=== PATIENT | male | born 1960 | race Caucasian/White ===

== ENCOUNTER 2017-11-02 20:31 | Emergency (ER) | payer SELFPAY ==
[2016-03-16 16:05] VITALS: Wt 48.1 kg
[~2017-11-02 20:31] MED LIST: CEP500 PO; CEPH-13 PO; FLUO-202 PO; FLUO40CA76 PO; LOR5/325 PO; LOR7.5/325 PO; MULT-1379 PO; PER PO; TRAZ-163 PO
--- NOTE | 2017-11-02 20:33 | ER Report ---
History and Physical Time Seen By MD: 20:32 HPI/ROS CHIEF COMPLAINT: Alcohol intoxication here to be admitted for detox HISTORY OF PRESENT ILLNESS: This is a 57 year old male. He is a daily drinker. Trying to stop. Having shakiness. Talked to Dr. Reese earlier today and said he was going to come in for detox. No other complaints at this time. He has been drinking today, last drink about 8pm. Says he likely needs 3 days in the hospital. REVIEW OF SYSTEMS: Respiratory: No cough, no dyspnea. Cardiovascular: No chest pain, no palpitations. Gastrointestinal: No vomiting, no abdominal pain. Musculoskeletal: No back pain. Allergies: Coded Allergies: naproxen (Verified Allergy, Intermediate, HVES, 11/02/17) Home Meds Reported Medications Fluoxetine Hcl (PROZAC) 20 Mg Capsule, 20 MG PO QDAY, CAPSULE 03/19/16 Trazodone Hcl (TRAZODONE HCL) 100 Mg Tablet, 150 PO QHS for PRN, TAB 03/15/16 Discontinued Reported Medications Multivits, W-Fe,Other Min (THERA-M) 1 Each Tablet, 1 EACH PO QDAY 03/19/16 Reviewed Nurses Notes: Yes Hx Smoking: Yes Smoking Status: Current: Every Day Smoker Exposure to Second Hand Smoke?: Yes Hx Alcohol Use: Yes Constitutional Vital Sign - Last 24 Hours 11/02/17 11/02/17 11/02/17 20:36 20:46 21:56 Temp 97.9 Pulse 91 91 Resp 14 14 B/P (MAP) 117/87 116/78 (91) Pulse Ox 85 85 O2 Delivery Room Air Room Air O2 Flow Rate 2.0 Physical Exam General Appearance: Intoxicated. Alert, no acute distress. Eyes: Pupils equal, round and reactive. Has slight scleral injection. ENT: Normal oral mucosa. Moist mucous membranes. Tympanic membranes are normal. Neck: Neck is supple and non tender. Respiratory: Chest is non tender, lungs are clear to auscultation. Cardiac: regular rate and rhythm Gastrointestinal: Abdomen is soft and non tender, no masses, bowel sounds normal. Musculoskeletal: Extremities have full range of motion. Skin: No rashes or lesions. DIFFERENTIAL DIAGNOSIS: After history and physical exam differential diagnosis was considered for alcohol intoxication requesting detox Medical Decision Making Data Points Result Diagram: 11/02/17204911/02/172049 Laboratory Hematology Test 11/02/17 20:50 11/02/17 21:26 Red Blood Count 5.31 M/uL (4.00-5.60) Mean Corpuscular Volume 98.1 fL (80.0-96.0) Mean Corpuscular Hemoglobin 34.5 pg (26.0-33.0) Mean Corpuscular Hemoglobin Concent 35.2 g/dL (32.0-36.0) Red Cell Distribution Width 13.4 % (11.5-14.5) Mean Platelet Volume 8.1 fL (7.2-11.1) Neutrophils (%) (Auto) 56.3 % (39.4-72.5) Lymphocytes (%) (Auto) 31.9 % (17.6-49.6) Monocytes (%) (Auto) 10.0 % (4.1-12.4) Eosinophils (%) (Auto) 1.1 % (0.4-6.7) Basophils (%) (Auto) 0.7 % (0.3-1.4) Nucleated RBC Relative Count (auto) 0.1 /100WBC Neutrophils # (Auto) 5.3 K/uL (2.0-7.4) Lymphocytes # (Auto) 3.0 K/uL (1.3-3.6) Monocytes # (Auto) 0.9 K/uL (0.3-1.0) Eosinophils # (Auto) 0.1 K/uL (0.0-0.5) Basophils # (Auto) 0.1 K/uL (0.0-0.1) Nucleated RBC Absolute Count (auto) 0.01 K/uL Sodium Level 142 mmol/L (137-145) Potassium Level 3.4 mmol/L (3.5-5.0) Chloride Level 101 mmol/L (98-107) Carbon Dioxide Level 23 mmol/L (22-30) Blood Urea Nitrogen 11 mg/dl (9-21) Creatinine 0.80 mg/dl (0.66-1.25) Glomerular Filtration Rate Calc > 60.0 Random Glucose 123 mg/dl (75-110) Calcium Level 9.4 mg/dl (8.4-10.2) Magnesium Level 2.0 mg/dl (1.7-2.2) Total Bilirubin 0.4 mg/dl (0.2-1.3) Aspartate Amino Transf (AST/SGOT) 132 U/L (0-35) Alanine Aminotransferase (ALT/SGPT) 93 U/L (0-56) Alkaline Phosphatase 75 U/L (0-126) Total Protein 7.3 gm/dl (6.3-8.2) Albumin 3.9 g/dl (3.5-5.0) Salicylates Level < 10 mg/L Salicylate Last Dose Date unk Acetaminophen Level < 10 ug/ml Serum Alcohol 377 mg/dl Urine Color Straw Urine Clarity Clear Urine pH 6.0 pH (4.8-9.5) Urine Specific [place] 1.003 Urine Protein Negative mg/dL (NEGATIVE) Urine Glucose (UA) Negative mg/dL (NEGATIVE) Urine Ketones Negative mg/dL (NEGATIVE) Urine Blood Negative (NEGATIVE) Urine Nitrite Negative (NEGATIVE) Urine Bilirubin Negative (NEGATIVE) Urine Urobilinogen Negative mg/dL (0.2-1.9) Urine Leukocyte Esterase Negative (NEGATIVE) Urine RBC None /HPF (0-2/HPF) Urine WBC None /HPF (0-5/HPF) Urine Squamous Epithelial Cells None /LPF (</=FEW) Urine Bacteria Negative /HPF (NONE-FEW) Urine Mucus None /HPF (NONE-FEW) Urine Opiates Screen Negative Urine Barbiturates Screen Negative Ur Tricyclic Antidepressants Screen Negative Urine Phencyclidine Screen Negative Urine Amphetamines Screen Negative Urine Benzodiazepines Screen Negative Urine Cocaine Screen Negative Urine Cannabinoids Screen Positive Chemistry Test 11/02/17 20:50 11/02/17 21:26 White Blood Count 9.3 k/uL (4.5-11.0) Red Blood Count 5.31 M/uL (4.00-5.60) Hemoglobin 18.3 g/dL (14.0-18.0) Hematocrit 52.1 % (42.0-52.0) Mean Corpuscular Volume 98.1 fL (80.0-96.0) Mean Corpuscular Hemoglobin 34.5 pg (26.0-33.0) Mean Corpuscular Hemoglobin Concent 35.2 g/dL (32.0-36.0) Red Cell Distribution Width 13.4 % (11.5-14.5) Platelet Count 175 K/uL (150-450) Mean Platelet Volume 8.1 fL (7.2-11.1) Neutrophils (%) (Auto) 56.3 % (39.4-72.5) Lymphocytes (%) (Auto) 31.9 % (17.6-49.6) Monocytes (%) (Auto) 10.0 % (4.1-12.4) Eosinophils (%) (Auto) 1.1 % (0.4-6.7) Basophils (%) (Auto) 0.7 % (0.3-1.4) Nucleated RBC Relative Count (auto) 0.1 /100WBC Neutrophils # (Auto) 5.3 K/uL (2.0-7.4) Lymphocytes # (Auto) 3.0 K/uL (1.3-3.6) Monocytes # (Auto) 0.9 K/uL (0.3-1.0) Eosinophils # (Auto) 0.1 K/uL (0.0-0.5) Basophils # (Auto) 0.1 K/uL (0.0-0.1) Nucleated RBC Absolute Count (auto) 0.01 K/uL Glomerular Filtration Rate Calc > 60.0 Calcium Level 9.4 mg/dl (8.4-10.2) Magnesium Level 2.0 mg/dl (1.7-2.2) Total Bilirubin 0.4 mg/dl (0.2-1.3) Aspartate Amino Transf (AST/SGOT) 132 U/L (0-35) Alanine Aminotransferase (ALT/SGPT) 93 U/L (0-56) Alkaline Phosphatase 75 U/L (0-126) Total Protein 7.3 gm/dl (6.3-8.2) Albumin 3.9 g/dl (3.5-5.0) Salicylates Level < 10 mg/L Salicylate Last Dose Date unk Acetaminophen Level < 10 ug/ml Serum Alcohol 377 mg/dl Urine Color Straw Urine Clarity Clear Urine pH 6.0 pH (4.8-9.5) Urine Specific [place] 1.003 Urine Protein Negative mg/dL (NEGATIVE) Urine Glucose (UA) Negative mg/dL (NEGATIVE) Urine Ketones Negative mg/dL (NEGATIVE) Urine Blood Negative (NEGATIVE) Urine Nitrite Negative (NEGATIVE) Urine Bilirubin Negative (NEGATIVE) Urine Urobilinogen Negative mg/dL (0.2-1.9) Urine Leukocyte Esterase Negative (NEGATIVE) Urine RBC None /HPF (0-2/HPF) Urine WBC None /HPF (0-5/HPF) Urine Squamous Epithelial Cells None /LPF (</=FEW) Urine Bacteria Negative /HPF (NONE-FEW) Urine Mucus None /HPF (NONE-FEW) Urine Opiates Screen Negative Urine Barbiturates Screen Negative Ur Tricyclic Antidepressants Screen Negative Urine Phencyclidine Screen Negative Urine Amphetamines Screen Negative Urine Benzodiazepines Screen Negative Urine Cocaine Screen Negative Urine Cannabinoids Screen Positive Toxicology Test 11/02/17 20:50 11/02/17 21:26 Salicylates Level < 10 mg/L Salicylate Last Dose Date unk Acetaminophen Level < 10 ug/ml Serum Alcohol 377 mg/dl Urine Opiates Screen Negative Urine Barbiturates Screen Negative Ur Tricyclic Antidepressants Screen Negative Urine Phencyclidine Screen Negative Urine Amphetamines Screen Negative Urine Benzodiazepines Screen Negative Urine Cocaine Screen Negative Urine Cannabinoids Screen Positive Urinalysis Test 11/02/17 21:26 Urine Color Straw Urine Clarity Clear Urine pH 6.0 pH (4.8-9.5) Urine Specific [place] 1.003 Urine Protein Negative mg/dL (NEGATIVE) Urine Glucose (UA) Negative mg/dL (NEGATIVE) Urine Ketones Negative mg/dL (NEGATIVE) Urine Blood Negative (NEGATIVE) Urine Nitrite Negative (NEGATIVE) Urine Bilirubin Negative (NEGATIVE) Urine Urobilinogen Negative mg/dL (0.2-1.9) Urine Leukocyte Esterase Negative (NEGATIVE) Urine RBC None /HPF (0-2/HPF) Urine WBC None /HPF (0-5/HPF) Urine Squamous Epithelial Cells None /LPF (</=FEW) Urine Bacteria Negative /HPF (NONE-FEW) Urine Mucus None /HPF (NONE-FEW) ED Course/Re-evaluation ED Course Labs unremarkable. Discussed with Dr. Reese. Gave Valium 20 mg oral dose. Also given nicotine patch. Will be admitted to behavioral health. Decision to Disposition Date: November 02, 2017 Decision to Disposition Time: 21:42 Depart Departure Latest Vital Signs Vital Signs Date Time Temp Pulse Resp B/P (MAP) Pulse Ox O2 Delivery O2 Flow Rate FiO2 11/02/17 21:56 91 14 116/78 (91) 85 Room Air 11/02/17 20:46 2.0 11/02/17 20:36 97.9 Impression: Primary Impression: Alcohol intoxication in active alcoholic Condition: Condition Unchanged Disposition: XFER TO [facility] Referrals: MILO TONEY (PCP) Problem Qualifiers Primary Impression: Alcohol intoxication in active alcoholic Complication of substance-induced condition: uncomplicated Qualified Codes: F10.220 - Alcohol dependence with intoxication, uncomplicated AN NAVA MD November 02, 2017 20:33
[2017-11-02 20:56] LABS: PLATELET COUNT, AUTOMATED 175 K/uL (150-450)
[2017-11-02] MEDS ORDERED: DIAZEPAM 10 MG TAB PO ONE (21:20)
[2017-11-02] MEDS ORDERED: NICOTINE 21 MG/24 HR PATCH TD ONE (21:38)
[2017-11-02 21:56] VITALS: BP 116/78
== END 2017-11-02 21:58 ==
LOC: ER 20:57
DX: F10.220 Alcohol dependence with intoxication, uncomplicated (principal)
CPT/HCPCS: 36415; 80305; 80320; 80329; 81001; 82040; 82247; 82310; 82374; 82435; 82565; 82947; 83735; 84075; 84132; 84155; 84295; 84443; 84450; 84460; 84520; 85025; 99285

== ENCOUNTER 2017-11-02 21:51 | Inpatient (IN) | payer SELFPAY ==
[2016-03-16 16:05] VITALS: Ht 167.6 cm; Wt 48.1 kg
[~2017-11-02] VITALS: Ht 167.6 cm; Wt 48.1 kg
[2017-11-02] MEDS ORDERED: MAG HYD/AL HYD/SIMETH 30ML UDC PO PRN ×2 (22:10→22:15)
[2017-11-02] MEDS ORDERED: DIAZEPAM 10 MG TAB PO PRN (22:10)
[2017-11-02 22:33] VITALS: BP 108/72
[2017-11-02] MEDS ORDERED: NICOTINE INH SYSTEM 10 MG/INH INH PRN ×2 (23:40)
[2017-11-03 05:20] VITALS: BP 109/99
[2017-11-03] MEDS: DIAZEPAM 20 MG PER CIWA PROTOCOL PO PRN ×3 (05:26→21:15)
[2017-11-03 07:55] VITALS: BP 124/84
[2017-11-03] MEDS: THIAMINE HCL 100 MG TAB PO SCH (08:19)
[2017-11-03] MEDS: FOLIC ACID 1 MG TAB PO SCH (08:19)
[2017-11-03] MEDS: MULTIVITAMINS TAB PO SCH (08:19)
[2017-11-03] MEDS ORDERED: MULTIVITAMINS TAB PO SCH (09:00)
[2017-11-03 11:50] VITALS: BP 140/94
[2017-11-03] MEDS: FLUoxetine HCL 20 MG CAP PO SCH (13:07)
--- NOTE | 2017-11-03 14:40 | HISTORY AND PHYSICAL ---
DATE OF ADMISSION: November 02, 2017 Patient was seen for note concerning this dictation at approximately 0800 hours on November 03, 2017. PRESENTING PROBLEM/CHIEF COMPLAINT Alcohol withdrawal. HISTORY OF PRESENT ILLNESS This is a 57-year-old male who is fairly well known to this provider. Patient was notably last on the unit in March of 2016 under similar circumstances. Patient reports having a fairly long period of sobriety following that discharge , again in March in 2015. Patient unfortunately relapsing, having difficulty controlling morning shakes. Patient reports he has also gone through some relationship stressors which are long-standing in nature, and patient having limited finances, and again suffering multiple social effects from ongoing alcoholism. Patient reporting he is trying to cut down at home, but unable to detox successfully at home, currently drinking up to one pint a day of hard liquor. Patient also reporting recent loss of a friend who was drinking heavily as well who had . This is bothersome to him. Patient reports very poor sleep recently while drinking and having panic-like attack symptoms during the night likely related to alcohol withdrawal. Patient denying any other significant psychiatric concerns. MENTAL HEALTH HISTORY Patient has been a long-term outpatient patient for what appears to be persisting depressive disorder type symptomatology. Patient has long done well on a relatively high dose of Prozac with trazodone at night. Patient is believed to be taking Prozac currently, but no longer on trazodone at this time. Patient does not have a significant history of suicide attempt that is known. FAMILY PSYCHIATRIC HISTORY Unknown at this time. Will get further information. PAST MEDICAL HISTORY Patient of thin body habitus long-standing in nature, thought to be in overall good health. Not thought to be on any medical medications currently. SOCIAL HISTORY Patient was born in [place], raised there, currently living in [place]. Patient has adult children. 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 They are currently . Patient most recently living with his son. LEGAL HISTORY Thought to be unremarkable now. SUBSTANCE ABUSE HISTORY Patient reports drinking hard liquor, sometimes whiskey and tequila heavily. Patient known to use nicotine and patient's cannabis screen is positive. PHYSICAL EXAM GENERAL: Please see emergency room note. Notable for a cooperative, thin 57- year-old male, requesting help with alcohol withdrawal. Patient in no acute medical distress. VITAL SIGNS: At the time of admission, temperature 97.9, pulse 91, respiratory rate 14, blood pressure 117/87, pulse oximetry notably low at 85 on room air in the emergency room. LABORATORY DATA Significant for hemoglobin elevated at 18.3, hematocrit elevated at 52.1, MCV and MCH elevated at 98.1 and 34.5 respectively. Chemistry panel notable for a potassium low at 3.4, AST 132 and elevated, ALT 93 and elevated, TSH within normal range. Urinalysis unremarkable. Toxicology screen positive or cannabis with a serum alcohol level of 377. MENTAL STATUS EXAMINATION DURING TIME OF INITIAL INTERVIEW GENERAL APPEARANCE, BEHAVIOR AND ATTITUDE: Patient showing no psychomotor agitation. Patient currently effectively treated with diazepam for alcohol withdrawal. Patient making fair eye contact at times, was cooperative, quiet. No periods of tearfulness. No bizarre mannerisms or tics. SPEECH: Quiet. Poverty of speech noted. MOOD: Frustrated concerning effects of ongoing alcohol use and absence of significant other currently. AFFECT: Constricted. Mood congruent. THOUGHT PROCESSES: Appear goal directed. Patient asking to come to the emergency room for help and subsequent transfer to Behavioral Health for alcohol withdrawal. Logical. No loose associations or flight of ideas were noted. THOUGHT CONTENT: Free of auditory or visual hallucinations, ideas of reference , thought broadcastings, delusions, obsessions, compulsions. Patient denying suicidal or homicidal ideation. SENSORIUM: Clear. COGNITION: Alert and oriented to person, place, time and situation. MEMORY: Immediate, recent and remote estimated intact. INTELLIGENCE: Average based on historical data. INSIGHT AND JUDGMENT: Considered grossly intact in the absence of alcohol and cannabis use. ASSESSMENT This is a polite, cooperative 57-year-old male well known to this provider. Patient presenting to the emergency room on a voluntary basis asking for help with alcohol withdrawal. At this time we will look into outpatient meds that patient is currently on. We will continue those. We will also treat alcohol withdrawal with diazepam per [facility] protocol, and continue to evaluate any other psychiatric concerns. DIAGNOSES PER DSM-V Alcohol intoxication. Alcohol withdrawal. Alcohol use disorder severe. Persisting depressive disorder. Partner relational problem. Cannabis use disorder mild to moderate. Social stressors related to alcohol use disorder. PLAN 1. Admit to the unit. 2. Necessary precautions to be implemented. 3. Patient will participate in individual and group therapy. 4. Medications to be adjusted, titrated accordingly. 5. Collateral information to be obtained as necessary. 6. Estimated length of stay three to five days. MTDD
[2017-11-03] MEDS ORDERED: NICOTINE CARTRIDGE 1 EA PO ONE ×2 (16:43→16:45)
[2017-11-03 17:18] VITALS: BP 140/95
[2017-11-03] MEDS ORDERED: DIAZEPAM 10 MG TAB PO ONE (18:00)
[2017-11-03 21:24] VITALS: BP 146/90
[2017-11-04 05:17] VITALS: BP 140/90
[2017-11-04 06:40] VITALS: BP 148/92
[2017-11-04] MEDS: MULTIVITAMINS TAB PO SCH (08:46)
[2017-11-04] MEDS: FLUoxetine HCL 20 MG CAP PO SCH (08:46)
[2017-11-04] MEDS: THIAMINE HCL 100 MG TAB PO SCH (08:46)
[2017-11-04] MEDS: FOLIC ACID 1 MG TAB PO SCH (08:46)
--- NOTE | 2017-11-04 12:57 | [facility]HS Progress Note ---
[facility] - Subjective Progress Notes Subjective Patient continues in treatment for alcohol withdrawal, and very compliant with treatment on the unit, Son was available for treatment team meeting today, and noted to have reciprocal relationship. Appetite improving, patient does not want to attend residential rehab at this time. No other concerns. Suicidal Ideation: None Homicidal Ideation: None [facility] - Objective Physical Exam Vital Signs Vital Signs Date Time Temp Pulse Resp B/P (MAP) Pulse Ox O2 Delivery O2 Flow Rate FiO2 11/04/17 09:23 94 Room Air 11/04/17 06:40 99.3 88 16 148/92 (110) 11/04/17 05:17 2.0 Muscle Strength and Tone: WNL Gait and Station: Steady [facility] Medications Reviewed: Side Effects, Benefits of Medication, Risks Allergies Reviewed: Yes Mental Status Exam General Appearance: Casual, Good Eye Contact (improving), Cooperative, Polite, Good Interaction, Psychomotor Retardation, No Bizarre Mannerisms, No Tics Speech: Clear, Spontaneous, Normal Rate, Normal Volume Mood: Dysthmic/Depressed (frustrated) Affect: Calm, Neutral, No Tearful, No Anxious, No Agitated Thought Process: Organized, Logical, Goal Directed, No Loose Associations, No Flight of Ideas Thought Content: No Suicidal Ideation, No Homicidal Ideation, No Delusions, No Auditory Halllucinations, No Visual Hallucinations, No Thought Broadcasting, No Ideas of Reference, No Obsessions, No Compulsions Sensorium: Clear Cognition: Alert & Oriented-Person, Alert & Oriented-Place, Alert & Oriented- Time, Pxpzj-Hbcrfajf-Kfdejghuh Memory: Immediate, Recent, Remote Intelligence: Average Insight Judgment: Fair (improvement in the absence of alcohol) [facility] Assessment and Plan [id number] Encounter Date: November 04, 2017 [id number] Encounter Time: 09:40 [facility] Plan: Necessary Precautions, Individual/Group Therapy, Admin/Titrate Meds, Educate Patient Tobacco Medications: Started Multpiple Antipsychotics Used: No Problems: (1) Alcohol withdrawal Status: Acute (2) Alcohol use disorder, severe, in controlled environment Status: Chronic (3) Persistent depressive disorder Status: Chronic Condition 1. continue treatment, 2. consider re-starting trazadone. 3. labs in AM. Problem Qualifiers (1) Alcohol withdrawal: Complication of substance-induced condition: uncomplicated Qualified Codes: F10.230 - Alcohol dependence with withdrawal, uncomplicated IZABELA,ROSIE MD November 04, 2017 12:57
[2017-11-04 14:15] VITALS: BP 122/84
[2017-11-04] MEDS: DIAZEPAM 20 MG PER CIWA PROTOCOL PO PRN ×2 (14:32→21:10)
[2017-11-04 16:55] VITALS: BP 142/88
[2017-11-04] MEDS ORDERED: ACETAMINOPHEN 325 MG TAB PO PRN (17:10)
[2017-11-04 20:54] VITALS: BP 143/103
[2017-11-05 07:21] LABS: PLATELET COUNT, AUTOMATED 153 K/uL (150-450)
[2017-11-05] MEDS: FOLIC ACID 1 MG TAB PO SCH (08:32)
[2017-11-05] MEDS: THIAMINE HCL 100 MG TAB PO SCH (08:32)
[2017-11-05] MEDS: FLUoxetine HCL 20 MG CAP PO SCH (08:32)
[2017-11-05] MEDS: MULTIVITAMINS TAB PO SCH (08:32)
[2017-11-05 08:49] VITALS: BP 124/82
--- NOTE | 2017-11-05 09:54 | [facility] Progress Note ---
S - Subjective Progress Notes Subjective "The breakup with my of 32 years caused me to go downhill. I'm hoping by staying sober I can re-establish a relationship with my . I'm claustrophobic and need to smoke." Previous admit 2015, prolonged period of sobriety for 2 years until last 2 months, and triggered relapse Was drinking 1-2 pints daily prior to admit Living w/son, good support system AA in past, dislikes AA meetings, agrees with outpatient individual therapy Has appt. with Ashley Wei 11/09/17 for individual therapy Denies suicidal or homicidal ideation Denies urge to drink Suicidal Ideation: None Homicidal Ideation: None [facility] - Objective Physical Exam Vital Signs Laboratory Tests Test 11/05/17 06:54 White Blood Count 11.7 k/uL Red Blood Count 5.10 M/uL Hemoglobin 17.6 g/dL Hematocrit 49.7 % Mean Corpuscular Volume 97.4 fL Mean Corpuscular Hemoglobin 34.5 pg Mean Corpuscular Hemoglobin Concent 35.4 g/dL Red Cell Distribution Width 12.8 % Platelet Count 153 K/uL Mean Platelet Volume 9.1 fL Neutrophils (%) (Auto) 72.4 % Lymphocytes (%) (Auto) 16.0 % Monocytes (%) (Auto) 11.0 % Eosinophils (%) (Auto) 0.2 % Basophils (%) (Auto) 0.4 % Nucleated RBC Relative Count (auto) 0.0 /100WBC Neutrophils # (Auto) 8.5 K/uL Lymphocytes # (Auto) 1.9 K/uL Monocytes # (Auto) 1.3 K/uL Eosinophils # (Auto) 0.0 K/uL Basophils # (Auto) 0.0 K/uL Nucleated RBC Absolute Count (auto) 0.00 K/uL Sodium Level 134 mmol/L Potassium Level 3.6 mmol/L Chloride Level 98 mmol/L Carbon Dioxide Level 26 mmol/L Blood Urea Nitrogen 9 mg/dl Creatinine 0.70 mg/dl Glomerular Filtration Rate Calc > 60.0 Random Glucose 92 mg/dl Calcium Level 9.1 mg/dl Magnesium Level 1.8 mg/dl Total Bilirubin 1.6 mg/dl Aspartate Amino Transf (AST/SGOT) 35 U/L Alanine Aminotransferase (ALT/SGPT) 58 U/L Alkaline Phosphatase 78 U/L Total Protein 6.4 gm/dl Albumin 3.2 g/dl Current Medications Medications (Trade) Dose Ordered Sig/Vandana Route PRN Reason Start Time Stop Time Status Last Admin Dose Admin Multivitamins (Thera-M Enhanced Tab (Or Equiv)) 1 each QDAY PO 11/03/17 09:00 11/03/17 09:00 DC Al Hydrox/Mg Hydrox/Simethicone (Maalox(*) 30 ml Udcup (Or Equiv)) 30 ml Q6H PRN PO HEARTBURN 11/02/17 22:10 11/02/17 22:51 DC Diazepam (Valium(*) 10 Mg Tab (Or Equiv)) 20 mg Q1H PRN PO FOLLOW [facility] PROTOCOL 11/02/17 22:10 11/02/17 22:51 DC Al Hydrox/Mg Hydrox/Simethicone (Maalox(*) 30 ml Udcup (Or Equiv)) 30 ml Q6H PRN PO HEARTBURN 11/02/17 22:15 12/02/17 22:14 Multivitamins (Thera-M Enhanced Tab (Or Equiv)) 1 each QDAY PO 11/03/17 09:00 12/03/17 08:59 11/05/17 08:32 Diazepam (Valium(*) 10 Mg Tab (Or Equiv)) 20 mg Q1H PRN PO FOLLOW [facility] PROTOCOL 11/02/17 22:20 11/16/17 22:19 11/04/17 21:10 Thiamine HCl (Vitamin B-1(*) 100 Mg Tab (Or Equiv)) 100 mg QDAY PO 11/03/17 09:00 12/03/17 08:59 11/05/17 08:32 Folic Acid (Folic Acid (*) 1 Mg Tab) 1 mg QDAY PO 11/03/17 09:00 12/03/17 08:59 11/05/17 08:32 Nicotine (Nicotrol Inhaler 10 Mg/Inh (Or Equiv)) 10 mg PRN PRN INH NICOTINE REPLACEMENT 11/02/17 23:40 11/02/17 23:43 DC Nicotine (Nicotrol Inhaler 10 Mg/Inh (Or Equiv)) 10 mg PRN PRN INH NICOTINE REPLACEMENT 11/02/17 23:40 12/02/17 23:39 11/04/17 19:44 Fluoxetine HCl (PROzac 20 MG CAP (OR EQUIV)) 20 mg QDAY PO 11/03/17 12:50 12/03/17 12:49 11/05/17 08:32 Miscellaneous Information (Nicotrol Cartridge) 1 each STK-MED ONCE PO 11/03/17 16:43 11/03/17 16:52 DC 11/03/17 16:43 Miscellaneous Information (Nicotrol Cartridge) 1 each STK-MED ONCE PO 11/03/17 16:45 11/03/17 16:52 DC Diazepam (Valium(*) 10 Mg Tab (Or Equiv)) 10 mg ONCE ONCE PO 11/03/17 18:00 11/03/17 18:04 DC 11/03/17 18:01 Acetaminophen (Tylenol(*)325 Mg Tab (Or Equiv)) 325 mg Q6H PRN PO FEVER/PAIN 11/04/17 17:10 12/04/17 17:09 11/04/17 17:36 Vital Signs Date Time Temp Pulse Resp B/P (MAP) Pulse Ox O2 Delivery O2 Flow Rate FiO2 11/05/17 08:49 99.2 99 18 124/82 (96) 90 Room Air 11/04/17 05:17 2.0 Allergies Coded Allergies naproxen (Verified Allergy, Intermediate, HVES, 11/02/17) Muscle Strength and Tone: WNL Gait and Station: Steady [facility] Medications Reviewed: Side Effects, Benefits of Medication, Risks Allergies Reviewed: Yes Mental Status Exam General Appearance: Casual, Good Eye Contact (improving), Cooperative, Polite, Good Interaction, Psychomotor Retardation, No Bizarre Mannerisms, No Tics Speech: Clear, Spontaneous, Normal Rate, Normal Volume Mood: Dysthmic/Depressed (tearful as discusses loss of marriage, agrees w/ outpt therapy as scheduled) Affect: Calm, Neutral, No Tearful, No Anxious, No Agitated Thought Process: Organized, Logical, Goal Directed, No Loose Associations, No Flight of Ideas Thought Content: No Suicidal Ideation, No Homicidal Ideation, No Delusions, No Auditory Halllucinations, No Visual Hallucinations, No Thought Broadcasting, No Ideas of Reference, No Obsessions, No Compulsions Sensorium: Clear Cognition: Alert & Oriented-Person, Alert & Oriented-Place, Alert & Oriented- Time, Zealy-Agdcnaqc-Fglobtsus Memory: Immediate, Recent, Remote Intelligence: Average Insight Judgment: Fair (improvement in the absence of alcohol) Result Diagram: 11/05/17 0654 11/05/17 0654 Lab Vital Signs Date Time Temp Pulse Resp B/P (MAP) Pulse Ox O2 Delivery O2 Flow Rate FiO2 11/05/17 08:49 99.2 99 18 124/82 (96) 90 Room Air 11/04/17 05:17 2.0 Allergies Coded Allergies naproxen (Verified Allergy, Intermediate, HVES, 11/02/17) S Assessment and Plan [id number] Encounter Date: November 05, 2017 [id number] Encounter Time: 09:53 [facility] Plan: Necessary Precautions, Individual/Group Therapy, Admin/Titrate Meds, Educate Patient Tobacco Medications: Started Multpiple Antipsychotics Used: No Problems: (1) Alcohol use disorder, severe, in controlled environment Status: Chronic (2) Persistent depressive disorder Status: Chronic (3) Alcohol intoxication in active alcoholic Status: Resolved (4) Alcohol withdrawal Status: Resolved Condition Discharge to home Encourage to abstain from etoh/illicit substances Encourage outpt. appts. as scheduled Crisis line # provided, encourage use if needed Return to ER for worsening symptoms, SI/HI Allergies Coded Allergies naproxen (Verified Allergy, Intermediate, HVES, 11/02/17) Problem Qualifiers (1) Alcohol withdrawal: Complication of substance-induced condition: uncomplicated Qualified Codes: F10.230 - Alcohol dependence with withdrawal, uncomplicated NEDA WICK NP November 05, 2017 09:54
[2017-11-05] MEDS ORDERED: NIC10R INH (10:09)
[2017-11-05] MEDS ORDERED: FOLI-68 PO (10:29)
[2017-11-05] MEDS ORDERED: MULT-859 PO (10:30)
[2017-11-05] MEDS ORDERED: THIA100T2 PO (10:30)
--- NOTE | 2017-11-05 15:25 | DISCHARGE SUMMARY ---
DATE OF ADMISSION: November 02, 2017 DATE OF DISCHARGE: November 05, 2017 FINAL DIAGNOSES PER DIAGNOSTIC AND STATISTICAL MANUAL OF MENTAL DISORDERS, FIFTH EDITION 1. Alcohol use disorder, severe. 2. Alcohol withdrawal, considered complete. 3. Persisting depressive disorder. 4. Partner relational problems. 5. Cannabis use disorder, mild to moderate. 6. Tobacco use disorder, severe. 7. Problems related to interpersonal relationship with ex-, alcoholism. REASON FOR ADMISSION AND BRIEF HISTORY Patient is a 57-year-old male who reports upon initial interview that he has most recently relapsed with alcohol with stress of recent divorce. Patient was previously on the Behavioral Health Unit in March 2016 under similar circumstances. Patient had a prolonged period of sobriety up until recently when partner relationship stressors caused his relapse. Patient reports that he has been drinking a half pint to a pint of hard liquor daily. He also reported a recent loss of a friend who was drinking heavily as well. Patient reported poor sleep while drinking and panic-like symptoms during the night, likely related to alcohol withdrawal. At time of discharge interview, patient reports that his sleep has been restored with use of trazodone. He has been restarted on fluoxetine, previously taking 100 mg dose, and patient agreeable to continuing both at home. Patient reports ongoing depression related to the loss of the relationship with his of 32 years, although he does have support from his son whom he is currently living with. Patient reports that he hopes through sobriety that he can regain some respect and communication with his ex-, and he is looking forward to spending time with his son and 9-year-old grandson. Patient is tearful as he discusses the loss of the relationship and things that they used to enjoy, such as square dancing. 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 It was encouraged that patient stay remaining on the unit in order that we could continue support of his sobriety and his current related stressors with his ex-, although patient reports he is claustrophobic and also needing to smoke, and he is requesting to be discharged and agreeable with the above discharge plan which includes regular calls that the patient makes upon his return home to Behavioral Health Unit. He is agreeable with his outpatient scheduled appointment with an individual therapist that is preset prior to his discharge. He is also encouraged to attend AA meetings, although has done so in the past and declines this option. PHYSICAL EXAMINATION Please see emergency room notes for physical exam. VITAL SIGNS: At time of admit include temperature of 99.3, pulse of 88, respiratory rate 16, blood pressure 148/92, pulse oximetry 90% on room air. Vital signs at time of discharge include temperature of 99.2, pulse of 99, respiratory rate 18, blood pressure 124/82, pulse oximetry 90% on room air. LABORATORY DATA CBC with elevated white blood count, 11.7, MCV elevated, 97.4, MCH elevated, 34.5, lymphocyte percent low at 16, monocyte percent elevated, 1.3. Chemistry panel: Sodium slightly low at 134, total bilirubin elevated at 1.6, ALT elevated at 58, albumin low at 3.2. Initial urine screen including negative results within normal limits. Toxicology upon emergency room triage including salicylate, acetaminophen levels less than 10. Serum alcohol upon admit was 377. Urine screen negative for opiates, barbiturates, tricyclics, phencyclidine , amphetamines, benzodiazepines, cocaine. Positive for cannabinoids. Thyroid stimulating hormone was 1.36. MENTAL STATUS EXAMINATION GENERAL APPEARANCE, BEHAVIOR, AND ATTITUDE: This is a calm, cooperative, 57- year-old male. At time of discharge interview, he is requesting to leave and is agreeable with ongoing management through his medication provider and individual therapist with appointments set prior to discharge. Patient is denying nausea, vomiting, diarrhea. No bizarre mannerisms or tics. A few periods of tearfulness as he talks about 32-year loss of a marriage, although hoping through sobriety that he can regain communication with his . SPEECH: Regular rate, rhythm, volume, and tone. MOOD: Dysthymic. AFFECT: Mood congruent. THOUGHT PROCESSES: Logical, goal directed. No loose associations. No flight of ideas. THOUGHT CONTENT: Free of auditory or visual hallucinations, ideas of reference , thought broadcasting, delusions, obsessions, compulsions. Patient adamantly denying suicidal or homicidal ideations. SENSORIUM: Clear. COGNITION: Alert and oriented to person, place, time, and situation. MEMORY: Immediate, recent, and remote estimated intact. INTELLIGENCE: Average based on interview. INSIGHT AND JUDGMENT: Considered intact as patient committed to sobriety, agreeable with outpatient individual therapy appointment which has been preset prior to discharge. He is also agreeable to abstain from alcohol and follow up with medication provider as scheduled. CONSULTATIONS None. TREATMENT Patient participated in individual and group therapy. His trazodone and fluoxetine were restarted. He is instructed to continue these as prescribed and follow up with medication provider, possibly through the [facility]. He has a preset individual therapy appointment with . These instructions were reviewed, and he is agreeable to attend this session and engage with substance abuse-related treatment. AA is also encouraged, although he is declining this option based on previous experience. HOSPITAL COURSE Patient remained calm and cooperative. He was treated with [facility] protocol for alcohol withdrawal. His alcohol withdrawal was considered complete. CONDITION OF PATIENT ON DISCHARGE Stable. He is considered a minimal risk to himself or others. Patient is discharged to home. DISCHARGE MEDICATIONS 1. Fluoxetine 20 mg one p.o. daily. 2. Folic acid 1 mg p.o. daily. 3. Multivitamin one p.o. daily. 4. Nicotine cartridge inhaler as needed. 5. Thiamine 100 mg one p.o. daily. 6. Trazodone 50 to 150 mg one p.o. at bedtime p.r.n. for insomnia. Patient is to take medications only as prescribed. He is to abstain from alcohol and all illicit substances. He is given the crisis line number and encouraged use for worsening symptoms. Patient is agreeable with followup medication management and individual therapy appointments as he states he is committed to sobriety. Patient is to return to the Emergency Room for worsening symptoms, suicidal or homicidal ideation. Patient is competent and agreeable with the above discharge plan. AL
== END 2017-11-05 11:41 | disposition home or self-care (01) | DRG 897 ==
LOC: BHS 21:51
PROVIDERS: ADMIT Psychiatry & Neurology Psychiatry; ATTEND Psychiatry & Neurology Psychiatry
DX: F10.239 Alcohol dependence with withdrawal, unspecified (principal); F33.9 Major depressive disorder, recurrent, unspecified; G47.00 Insomnia, unspecified; F12.20 Cannabis dependence, uncomplicated; F40.240 Claustrophobia; Y90.8 Blood alcohol level of 240 mg/100 ml or more; K21.9 Gastro-esophageal reflux disease without esophagitis; Z91.5 Personal history of self-harm; M19.041 Primary osteoarthritis, right hand; M19.042 Primary osteoarthritis, left hand; F17.200 Nicotine dependence, unspecified, uncomplicated; Z63.5 Disruption of family by separation and divorce
CPT/HCPCS: 36415; 82040; 82247; 82310; 82374; 82435; 82565; 82947; 83735; 84075; 84132; 84155; 84295; 84450; 84460; 84520; 85025

== ENCOUNTER 2017-11-21 19:36 | Emergency (ER) | payer SELFPAY ==
[2016-03-16 16:05] VITALS: Wt 52.2 kg
[~2017-11-21 19:36] MED LIST changes: +FOLI-68 PO; +MULT-859 PO; +NIC10R INH; +THIA100T2 PO
--- NOTE | 2017-11-21 20:58 | ER Report ---
History and Physical Time Seen By MD: 20:51 Hx. of Stated Complaint: pt here to detox from alcohol HPI/ROS CHIEF COMPLAINT: here for alcohol detox HISTORY OF PRESENT ILLNESS: This is a 57 year old male. He has chronic alcohol use. Drinks between 1 and 2 pints a day. Awakes with severe shakes and often takes about 1/2 pint to control these. He has been in the hospital for detox in the past. His last drink was just prior to coming to the hospital. Had been talking to Dr. Reese and said that he recommended checking back into the hospital. He is depressed with thoughts about suicide, but no plan. He denies any self harm. Has no other concerns at this time. Allergies: Coded Allergies: naproxen (Verified Allergy, Intermediate, HVES, 11/21/17) Home Meds Reported Medications Fluoxetine Hcl (PROZAC) 20 Mg Capsule, 20 MG PO QDAY, CAPSULE 03/19/16 Trazodone Hcl (TRAZODONE HCL) 100 Mg Tablet, 50-150 PO QHS for PRN, TAB 03/15/16 Discontinued Reported Medications Thiamine Mononitrate (VITAMIN B-1) 100 Mg Tablet, 100 MG PO DAILY 11/05/17 Multivits,Ca,Minerals/Iron/Fa (THERA-M TABLET) 1 Each Tablet, 1 EACH PO DAILY 11/05/17 Folic Acid (FOLIC ACID) 1 Mg Tablet, 1 MG PO QDAY, TAB 11/05/17 Nicotine (NICOTROL) 10 Mg/Inh Ctr, 10 MG INH PRN Y for NICOTINE REPLACEMENT 11/05/17 Reviewed Nurses Notes: Yes Hx Smoking: Yes Smoking Status: Current: Every Day Smoker Exposure to Second Hand Smoke?: Yes Hx Substance Use Disorder: Yes Hx Alcohol Use: Yes Constitutional Vital Sign - Last 24 Hours 11/21/17 11/21/17 11/21/17 11/21/17 20:21 20:29 20:30 20:36 Temp 98.4 Pulse ??? 75 80 Resp 18 B/P (MAP) 139/92 (108) 139/92 (108) Pulse Ox 89 84 11/21/17 11/21/17 11/21/17 11/21/17 21:00 21:25 21:30 22:00 B/P (MAP) 126/89 (101) 146/90 (108) 144/101 (115) 133/95 (108) Physical Exam General Appearance: The patient is alert, has no immediate need for airway protection, is not showing signs of shakiness or toxicity at this time. Eyes: Pupils equal and round no injection. ENT: Normal oral mucosa. Moist mucous membranes. Neck: Neck is supple and non tender. Respiratory: Chest is non tender, lungs are clear to auscultation. Cardiac: regular rate and rhythm Gastrointestinal: Abdomen is soft and non tender, no masses, bowel sounds normal. Musculoskeletal: Extremities have full range of motion. Skin: Has some abrasions on arms and face. has a laceration on chin. DIFFERENTIAL DIAGNOSIS: After history and physical exam differential diagnosis was considered for alcohol use disorder, requesting detox Medical Decision Making Data Points Result Diagram: 11/21/17210611/21/172106 Laboratory Hematology Test 11/21/17 21:07 11/21/17 21:27 Red Blood Count 5.30 M/uL (4.00-5.60) Mean Corpuscular Volume 97.2 fL (80.0-96.0) Mean Corpuscular Hemoglobin 33.9 pg (26.0-33.0) Mean Corpuscular Hemoglobin Concent 34.9 g/dL (32.0-36.0) Red Cell Distribution Width 13.5 % (11.5-14.5) Mean Platelet Volume 7.6 fL (7.2-11.1) Neutrophils (%) (Auto) 64.2 % (39.4-72.5) Lymphocytes (%) (Auto) 27.5 % (17.6-49.6) Monocytes (%) (Auto) 7.5 % (4.1-12.4) Eosinophils (%) (Auto) 0.1 % (0.4-6.7) Basophils (%) (Auto) 0.7 % (0.3-1.4) Nucleated RBC Relative Count (auto) 0.1 /100WBC Neutrophils # (Auto) 3.7 K/uL (2.0-7.4) Lymphocytes # (Auto) 1.6 K/uL (1.3-3.6) Monocytes # (Auto) 0.4 K/uL (0.3-1.0) Eosinophils # (Auto) 0.0 K/uL (0.0-0.5) Basophils # (Auto) 0.0 K/uL (0.0-0.1) Nucleated RBC Absolute Count (auto) 0.00 K/uL Sodium Level 144 mmol/L (137-145) Potassium Level 3.2 mmol/L (3.5-5.0) Chloride Level 100 mmol/L (98-107) Carbon Dioxide Level 28 mmol/L (22-30) Blood Urea Nitrogen 3 mg/dl (9-21) Creatinine 0.60 mg/dl (0.66-1.25) Glomerular Filtration Rate Calc > 60.0 Random Glucose 113 mg/dl (75-110) Calcium Level 8.5 mg/dl (8.4-10.2) Magnesium Level 1.7 mg/dl (1.7-2.2) Total Bilirubin 0.8 mg/dl (0.2-1.3) Aspartate Amino Transf (AST/SGOT) 88 U/L (0-35) Alanine Aminotransferase (ALT/SGPT) 60 U/L (0-56) Alkaline Phosphatase 85 U/L (0-126) Total Protein 6.9 gm/dl (6.3-8.2) Albumin 3.7 g/dl (3.5-5.0) Salicylates Level < 10 mg/L Salicylate Last Dose Date unk Acetaminophen Level < 10 ug/ml Serum Alcohol 342 mg/dl Urine Color Straw Urine Clarity Clear Urine pH 7.0 pH (4.8-9.5) Urine Specific [place] 1.002 Urine Protein Negative mg/dL (NEGATIVE) Urine Glucose (UA) Negative mg/dL (NEGATIVE) Urine Ketones Negative mg/dL (NEGATIVE) Urine Blood Negative (NEGATIVE) Urine Nitrite Negative (NEGATIVE) Urine Bilirubin Negative (NEGATIVE) Urine Urobilinogen Negative mg/dL (0.2-1.9) Urine Leukocyte Esterase Negative (NEGATIVE) Urine RBC None /HPF (0-2/HPF) Urine WBC <1 /HPF (0-5/HPF) Urine Squamous Epithelial Cells None /LPF (</=FEW) Urine Bacteria Negative /HPF (NONE-FEW) Urine Mucus None /HPF (NONE-FEW) Urine Opiates Screen Negative Urine Barbiturates Screen Negative Ur Tricyclic Antidepressants Screen Negative Urine Phencyclidine Screen Negative Urine Amphetamines Screen Negative Urine Benzodiazepines Screen Negative Urine Cocaine Screen Negative Urine Cannabinoids Screen Positive Chemistry Test 11/21/17 21:07 11/21/17 21:27 White Blood Count 5.7 k/uL (4.5-11.0) Red Blood Count 5.30 M/uL (4.00-5.60) Hemoglobin 18.0 g/dL (14.0-18.0) Hematocrit 51.6 % (42.0-52.0) Mean Corpuscular Volume 97.2 fL (80.0-96.0) Mean Corpuscular Hemoglobin 33.9 pg (26.0-33.0) Mean Corpuscular Hemoglobin Concent 34.9 g/dL (32.0-36.0) Red Cell Distribution Width 13.5 % (11.5-14.5) Platelet Count 171 K/uL (150-450) Mean Platelet Volume 7.6 fL (7.2-11.1) Neutrophils (%) (Auto) 64.2 % (39.4-72.5) Lymphocytes (%) (Auto) 27.5 % (17.6-49.6) Monocytes (%) (Auto) 7.5 % (4.1-12.4) Eosinophils (%) (Auto) 0.1 % (0.4-6.7) Basophils (%) (Auto) 0.7 % (0.3-1.4) Nucleated RBC Relative Count (auto) 0.1 /100WBC Neutrophils # (Auto) 3.7 K/uL (2.0-7.4) Lymphocytes # (Auto) 1.6 K/uL (1.3-3.6) Monocytes # (Auto) 0.4 K/uL (0.3-1.0) Eosinophils # (Auto) 0.0 K/uL (0.0-0.5) Basophils # (Auto) 0.0 K/uL (0.0-0.1) Nucleated RBC Absolute Count (auto) 0.00 K/uL Glomerular Filtration Rate Calc > 60.0 Calcium Level 8.5 mg/dl (8.4-10.2) Magnesium Level 1.7 mg/dl (1.7-2.2) Total Bilirubin 0.8 mg/dl (0.2-1.3) Aspartate Amino Transf (AST/SGOT) 88 U/L (0-35) Alanine Aminotransferase (ALT/SGPT) 60 U/L (0-56) Alkaline Phosphatase 85 U/L (0-126) Total Protein 6.9 gm/dl (6.3-8.2) Albumin 3.7 g/dl (3.5-5.0) Salicylates Level < 10 mg/L Salicylate Last Dose Date unk Acetaminophen Level < 10 ug/ml Serum Alcohol 342 mg/dl Urine Color Straw Urine Clarity Clear Urine pH 7.0 pH (4.8-9.5) Urine Specific [place] 1.002 Urine Protein Negative mg/dL (NEGATIVE) Urine Glucose (UA) Negative mg/dL (NEGATIVE) Urine Ketones Negative mg/dL (NEGATIVE) Urine Blood Negative (NEGATIVE) Urine Nitrite Negative (NEGATIVE) Urine Bilirubin Negative (NEGATIVE) Urine Urobilinogen Negative mg/dL (0.2-1.9) Urine Leukocyte Esterase Negative (NEGATIVE) Urine RBC None /HPF (0-2/HPF) Urine WBC <1 /HPF (0-5/HPF) Urine Squamous Epithelial Cells None /LPF (</=FEW) Urine Bacteria Negative /HPF (NONE-FEW) Urine Mucus None /HPF (NONE-FEW) Urine Opiates Screen Negative Urine Barbiturates Screen Negative Ur Tricyclic Antidepressants Screen Negative Urine Phencyclidine Screen Negative Urine Amphetamines Screen Negative Urine Benzodiazepines Screen Negative Urine Cocaine Screen Negative Urine Cannabinoids Screen Positive Toxicology Test 11/21/17 21:07 11/21/17 21:27 Salicylates Level < 10 mg/L Salicylate Last Dose Date unk Acetaminophen Level < 10 ug/ml Serum Alcohol 342 mg/dl Urine Opiates Screen Negative Urine Barbiturates Screen Negative Ur Tricyclic Antidepressants Screen Negative Urine Phencyclidine Screen Negative Urine Amphetamines Screen Negative Urine Benzodiazepines Screen Negative Urine Cocaine Screen Negative Urine Cannabinoids Screen Positive Urinalysis Test 11/21/17 21:27 Urine Color Straw Urine Clarity Clear Urine pH 7.0 pH (4.8-9.5) Urine Specific [place] 1.002 Urine Protein Negative mg/dL (NEGATIVE) Urine Glucose (UA) Negative mg/dL (NEGATIVE) Urine Ketones Negative mg/dL (NEGATIVE) Urine Blood Negative (NEGATIVE) Urine Nitrite Negative (NEGATIVE) Urine Bilirubin Negative (NEGATIVE) Urine Urobilinogen Negative mg/dL (0.2-1.9) Urine Leukocyte Esterase Negative (NEGATIVE) Urine RBC None /HPF (0-2/HPF) Urine WBC <1 /HPF (0-5/HPF) Urine Squamous Epithelial Cells None /LPF (</=FEW) Urine Bacteria Negative /HPF (NONE-FEW) Urine Mucus None /HPF (NONE-FEW) ED Course/Re-evaluation ED Course labs obtained. The patient has mild elevation of AST and ALT, mild decrease in potassium. Alcohol level elevated and positive cannabinoids on drug screen. Laceration on chin after cleaning the abrasions and this was repaired as noted. Procedure: Laceration Repair Verbal consent from patient after discussing repair options, risks and benefits. Wound cleaned extensively with cleanse and saline. Anesthesia: 1% lidocaine with epinephrine and 0.5% bupivacaine. Location: Chin. Length: 2 cm. Wound repair: 3 interrupted 4-0 Prolene sutures. The wound repair was simple and performed by myself. Wound care instructions discussed. Sutures need to be removed in 7 days. Decision to Disposition Date: Nov 21, 2017 Decision to Disposition Time: 21:53 Depart Departure Latest Vital Signs Vital Signs Date Time Temp Pulse Resp B/P (MAP) Pulse Ox O2 Delivery O2 Flow Rate FiO2 11/21/17 22:00 133/95 (108) 11/21/17 20:36 80 84 11/21/17 20:29 98.4 18 Impression: Primary Impression: Alcohol use disorder, severe, in controlled environment Additional Impressions: Persistent depressive disorder Chin laceration Condition: Condition Unchanged Disposition: XFER TO [facility] Problem Qualifiers Additional Impressions: Chin laceration Encounter type: initial encounter Qualified Codes: S01.81XA - Laceration without foreign body of other part of head, initial encounter AN NAVA MD Nov 21, 2017 20:58
[2017-11-21 21:19] LABS: PLATELET COUNT, AUTOMATED 171 K/uL (150-450)
[2017-11-21 22:00] VITALS: BP 133/95
== END 2017-11-21 22:37 ==
LOC: ER 20:55
DX: F10.230 Alcohol dependence with withdrawal, uncomplicated (principal); S01.81XA Laceration without foreign body of other part of head, initial encounter; F34.1 Dysthymic disorder
CPT/HCPCS: 80305; 80320; 80329; 81001; 82040; 82247; 82310; 82374; 82435; 82565; 82947; 83735; 84075; 84132; 84155; 84295; 84443; 84450; 84460; 84520; 85025; 99283

== ENCOUNTER 2017-11-21 22:08 | Inpatient (IN) | payer SELFPAY ==
[2016-03-16 16:05] VITALS: Ht 165.1 cm; Wt 48.1 kg
[~2017-11-21] VITALS: Ht 165.1 cm; Wt 48.1 kg
[2017-11-21] MEDS ORDERED: NICOTINE CARTRIDGE 1 EA PO ONE (22:15)
[2017-11-21] MEDS ORDERED: MAG HYD/AL HYD/SIMETH 30ML UDC PO PRN (22:35)
[2017-11-21 23:00] VITALS: BP 131/101
[2017-11-21] MEDS: DIAZEPAM 10 MG TAB PO PRN (23:08)
[2017-11-21] MEDS: NICOTINE INH SYSTEM 10 MG/INH INH PRN (23:08)
[2017-11-22 03:28] VITALS: BP 120/86
[2017-11-22 06:45] VITALS: BP 163/105
[2017-11-22] MEDS: DIAZEPAM 10 MG TAB PO PRN ×8 (07:14→23:28)
[2017-11-22] MEDS: THIAMINE HCL 100 MG TAB PO SCH (08:16)
[2017-11-22] MEDS: MULTIVITAMINS TAB PO SCH (08:16)
[2017-11-22] MEDS: FOLIC ACID 1 MG TAB PO SCH (08:16)
[2017-11-22 12:21] VITALS: BP 152/100
[2017-11-22] MEDS ORDERED: LOPERAMIDE HCL 2 MG CAP PO PRN (12:25)
[2017-11-22] MEDS ORDERED: LOPERAMIDE HCL 2 MG CAP PO ONE (12:25)
[2017-11-22 13:52] VITALS: BP 144/95
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
[2017-11-22 17:20] VITALS: BP 130/96
[2017-11-22 18:34] LABS: PLATELET COUNT, AUTOMATED 126 K/uL (150-450)
[2017-11-22 22:14] VITALS: BP 150/106
[2017-11-23] VITALS (7 sets, daily range): BP systolic 129–165; BP diastolic 93–104
[2017-11-23] MEDS: DIAZEPAM 10 MG TAB PO PRN ×5 (00:32→20:46)
--- NOTE | 2017-11-23 02:02 | EKG ---
FACILITY: [facility] PATIENT NAME: RACQUEL SMALLS : [id number] MR: [id number] V: [id number] EXAM DATE: ORDERING PHYSICIAN: ROSIE GURROLA TECHNOLOGIST: TAYLOR Test Reason : WITHDRAWL Blood Pressure : / mmHG Vent. Rate : 081 BPM Atrial Rate : 081 BPM P-R Int : 130 ms QRS Dur : 082 ms QT Int : 390 ms P-R-T Axes : 065 075 069 degrees QTc Int : 453 ms Normal sinus rhythm Normal ECG No previous ECGs available Confirmed by JILL HUSAIN ([id number]) on 11/24/2017 11:07:32 AM Referred By: BRYCE Confirmed By:JILL HUSAIN
[2017-11-23] MEDS: FOLIC ACID 1 MG TAB PO SCH (08:21)
[2017-11-23] MEDS: MULTIVITAMINS TAB PO SCH (08:22)
[2017-11-23] MEDS: THIAMINE HCL 100 MG TAB PO SCH (08:22)
--- NOTE | 2017-11-23 10:27 | BHS Progress Note ---
BHS - Subjective Progress Notes Subjective Patient remains in active alcohol withdrawal and is in a dysphoric mood, concerning relationship with ex-, and continued alcoholism. will continue to treat withdrawal to completion, and arrange for [facility] rehab, which patient is indicating an intention to pursue at this time. Suicidal Ideation: None Homicidal Ideation: None BHS - Objective Physical Exam Vital Signs Hematology Test 11/22/17 18:18 11/22/17 19:30 Red Blood Count 5.23 M/uL (4.00-5.60) Mean Corpuscular Volume 96.5 fL (80.0-96.0) Mean Corpuscular Hemoglobin 33.7 pg (26.0-33.0) Mean Corpuscular Hemoglobin Concent 34.9 g/dL (32.0-36.0) Red Cell Distribution Width 13.1 % (11.5-14.5) Mean Platelet Volume 8.8 fL (7.2-11.1) Neutrophils (%) (Auto) 65.8 % (39.4-72.5) Lymphocytes (%) (Auto) 22.5 % (17.6-49.6) Monocytes (%) (Auto) 10.1 % (4.1-12.4) Eosinophils (%) (Auto) 0.6 % (0.4-6.7) Basophils (%) (Auto) 1.0 % (0.3-1.4) Nucleated RBC Relative Count (auto) 0.1 /100WBC Neutrophils # (Auto) 3.1 K/uL (2.0-7.4) Lymphocytes # (Auto) 1.0 K/uL (1.3-3.6) Monocytes # (Auto) 0.5 K/uL (0.3-1.0) Eosinophils # (Auto) 0.0 K/uL (0.0-0.5) Basophils # (Auto) 0.0 K/uL (0.0-0.1) Nucleated RBC Absolute Count (auto) 0.00 K/uL Sodium Level 138 mmol/L (137-145) Potassium Level 3.5 mmol/L (3.5-5.0) Chloride Level 99 mmol/L (98-107) Carbon Dioxide Level 30 mmol/L (22-30) Blood Urea Nitrogen 6 mg/dl (9-21) Creatinine 0.70 mg/dl (0.66-1.25) Glomerular Filtration Rate Calc > 60.0 Random Glucose 96 mg/dl (75-110) Calcium Level 8.9 mg/dl (8.4-10.2) Magnesium Level 1.5 mg/dl (1.7-2.2) Total Bilirubin 2.0 mg/dl (0.2-1.3) Aspartate Amino Transf (AST/SGOT) 80 U/L (0-35) Alanine Aminotransferase (ALT/SGPT) 62 U/L (0-56) Alkaline Phosphatase 76 U/L (0-126) Total Protein 6.1 gm/dl (6.3-8.2) Albumin 3.2 g/dl (3.5-5.0) Chemistry Test 11/22/17 18:18 11/22/17 19:30 White Blood Count 4.7 k/uL (4.5-11.0) Red Blood Count 5.23 M/uL (4.00-5.60) Hemoglobin 17.6 g/dL (14.0-18.0) Hematocrit 50.5 % (42.0-52.0) Mean Corpuscular Volume 96.5 fL (80.0-96.0) Mean Corpuscular Hemoglobin 33.7 pg (26.0-33.0) Mean Corpuscular Hemoglobin Concent 34.9 g/dL (32.0-36.0) Red Cell Distribution Width 13.1 % (11.5-14.5) Platelet Count 126 K/uL (150-450) Mean Platelet Volume 8.8 fL (7.2-11.1) Neutrophils (%) (Auto) 65.8 % (39.4-72.5) Lymphocytes (%) (Auto) 22.5 % (17.6-49.6) Monocytes (%) (Auto) 10.1 % (4.1-12.4) Eosinophils (%) (Auto) 0.6 % (0.4-6.7) Basophils (%) (Auto) 1.0 % (0.3-1.4) Nucleated RBC Relative Count (auto) 0.1 /100WBC Neutrophils # (Auto) 3.1 K/uL (2.0-7.4) Lymphocytes # (Auto) 1.0 K/uL (1.3-3.6) Monocytes # (Auto) 0.5 K/uL (0.3-1.0) Eosinophils # (Auto) 0.0 K/uL (0.0-0.5) Basophils # (Auto) 0.0 K/uL (0.0-0.1) Nucleated RBC Absolute Count (auto) 0.00 K/uL Glomerular Filtration Rate Calc > 60.0 Calcium Level 8.9 mg/dl (8.4-10.2) Magnesium Level 1.5 mg/dl (1.7-2.2) Total Bilirubin 2.0 mg/dl (0.2-1.3) Aspartate Amino Transf (AST/SGOT) 80 U/L (0-35) Alanine Aminotransferase (ALT/SGPT) 62 U/L (0-56) Alkaline Phosphatase 76 U/L (0-126) Total Protein 6.1 gm/dl (6.3-8.2) Albumin 3.2 g/dl (3.5-5.0) Muscle Strength and Tone: WNL Gait and Station: Steady [facility] Medications Reviewed: Side Effects, Benefits of Medication, Risks Allergies Reviewed: Yes Mental Status Exam General Appearance: Casual, No Well Groomed, No Good Eye Contact, Cooperative, Polite, Good Interaction, No Unkept, Tearful, Psychomotor Agitation, No Bizarre Mannerisms, No Tics Speech: Clear, Spontaneous, Normal Rate, Normal Rhythm, Normal Volume, Normal Tone Mood: Dysthmic/Depressed Affect: Calm, Tearful Thought Process: Organized, Logical, Goal Directed, No Loose Associations, No Flight of Ideas Thought Content: No Suicidal Ideation, No Homicidal Ideation, No Delusions, No Auditory Halllucinations, No Visual Hallucinations, No Thought Broadcasting, No Ideas of Reference, No Obsessions, No Compulsions Sensorium: Clear Cognition: Alert & Oriented-Person, Alert & Oriented-Place, Alert & Oriented- Time, Zigec-Xakpmefb-Cvbowmnce Memory: Immediate, Recent, Remote Intelligence: Average Insight Judgment: Poor Result Diagram: 11/22/17181711/22/171817 [facility] Assessment and Plan Zbet-te-Abvi Encounter Date: Nov 23, 2017 Udmp-vj-Jkej Encounter Time: 10:00 [facility] Plan: Necessary Precautions, Individual/Group Therapy, Admin/Titrate Meds, Educate Patient Tobacco Medications: Started Multpiple Antipsychotics Used: No Problems: (1) Alcohol withdrawal Status: Acute (2) Alcohol use disorder, severe, in controlled environment Status: Chronic (3) Persistent depressive disorder Status: Chronic Condition 1. continue treatment. 2. look into [facility] residential care. Problem Qualifiers (1) Alcohol withdrawal: Complication of substance-induced condition: uncomplicated Qualified Codes: F10.230 - Alcohol dependence with withdrawal, uncomplicated ROSIE GURROLA MD Nov 23, 2017 10:27
[2017-11-23] MEDS: NICOTINE INH SYSTEM 10 MG/INH INH PRN ×2 (13:06→23:26)
[2017-11-23] MEDS: FLUoxetine HCL 20 MG CAP PO SCH (13:07)
[2017-11-23] MEDS ORDERED: traZODone HCL 50 MG TAB PO ONE (23:40)
[2017-11-24 06:12] VITALS: BP 135/92
[2017-11-24] MEDS: FLUoxetine HCL 20 MG CAP PO SCH (08:25)
[2017-11-24] MEDS: MULTIVITAMINS TAB PO SCH (08:25)
[2017-11-24] MEDS: FOLIC ACID 1 MG TAB PO SCH (08:25)
[2017-11-24] MEDS: THIAMINE HCL 100 MG TAB PO SCH (08:25)
[2017-11-24 08:30] VITALS: BP 129/89
[2017-11-24] MEDS ORDERED: FLUoxetine HCL 20 MG CAP PO ONE (10:40)
--- NOTE | 2017-11-24 11:35 | BHS Progress Note ---
BHS - Subjective Progress Notes Subjective Alcohol withdrawal treatment now ;likely nearing completion. Patient still verbalizing desire to enter long term care administrator rehab. Will continue to pursue entrance with likely discharge tomorrow to reside with family member until entrance into rehab next week. Will increase prozac to 40 mg today, and continue treatment. No other concerns. Suicidal Ideation: None Homicidal Ideation: None BHS - Objective Physical Exam Vital Signs Vital Signs Date Time Temp Pulse Resp B/P (MAP) Pulse Ox O2 Delivery O2 Flow Rate FiO2 11/24/17 08:30 98.4 69 16 129/89 (102) 92 Nasal Cannula 2.0 Hematology Test 11/22/17 18:18 11/22/17 19:30 Red Blood Count 5.23 M/uL (4.00-5.60) Mean Corpuscular Volume 96.5 fL (80.0-96.0) Mean Corpuscular Hemoglobin 33.7 pg (26.0-33.0) Mean Corpuscular Hemoglobin Concent 34.9 g/dL (32.0-36.0) Red Cell Distribution Width 13.1 % (11.5-14.5) Mean Platelet Volume 8.8 fL (7.2-11.1) Neutrophils (%) (Auto) 65.8 % (39.4-72.5) Lymphocytes (%) (Auto) 22.5 % (17.6-49.6) Monocytes (%) (Auto) 10.1 % (4.1-12.4) Eosinophils (%) (Auto) 0.6 % (0.4-6.7) Basophils (%) (Auto) 1.0 % (0.3-1.4) Nucleated RBC Relative Count (auto) 0.1 /100WBC Neutrophils # (Auto) 3.1 K/uL (2.0-7.4) Lymphocytes # (Auto) 1.0 K/uL (1.3-3.6) Monocytes # (Auto) 0.5 K/uL (0.3-1.0) Eosinophils # (Auto) 0.0 K/uL (0.0-0.5) Basophils # (Auto) 0.0 K/uL (0.0-0.1) Nucleated RBC Absolute Count (auto) 0.00 K/uL Sodium Level 138 mmol/L (137-145) Potassium Level 3.5 mmol/L (3.5-5.0) Chloride Level 99 mmol/L (98-107) Carbon Dioxide Level 30 mmol/L (22-30) Blood Urea Nitrogen 6 mg/dl (9-21) Creatinine 0.70 mg/dl (0.66-1.25) Glomerular Filtration Rate Calc > 60.0 Random Glucose 96 mg/dl (75-110) Calcium Level 8.9 mg/dl (8.4-10.2) Magnesium Level 1.5 mg/dl (1.7-2.2) Total Bilirubin 2.0 mg/dl (0.2-1.3) Aspartate Amino Transf (AST/SGOT) 80 U/L (0-35) Alanine Aminotransferase (ALT/SGPT) 62 U/L (0-56) Alkaline Phosphatase 76 U/L (0-126) Total Protein 6.1 gm/dl (6.3-8.2) Albumin 3.2 g/dl (3.5-5.0) Chemistry Test 11/22/17 18:18 11/22/17 19:30 White Blood Count 4.7 k/uL (4.5-11.0) Red Blood Count 5.23 M/uL (4.00-5.60) Hemoglobin 17.6 g/dL (14.0-18.0) Hematocrit 50.5 % (42.0-52.0) Mean Corpuscular Volume 96.5 fL (80.0-96.0) Mean Corpuscular Hemoglobin 33.7 pg (26.0-33.0) Mean Corpuscular Hemoglobin Concent 34.9 g/dL (32.0-36.0) Red Cell Distribution Width 13.1 % (11.5-14.5) Platelet Count 126 K/uL (150-450) Mean Platelet Volume 8.8 fL (7.2-11.1) Neutrophils (%) (Auto) 65.8 % (39.4-72.5) Lymphocytes (%) (Auto) 22.5 % (17.6-49.6) Monocytes (%) (Auto) 10.1 % (4.1-12.4) Eosinophils (%) (Auto) 0.6 % (0.4-6.7) Basophils (%) (Auto) 1.0 % (0.3-1.4) Nucleated RBC Relative Count (auto) 0.1 /100WBC Neutrophils # (Auto) 3.1 K/uL (2.0-7.4) Lymphocytes # (Auto) 1.0 K/uL (1.3-3.6) Monocytes # (Auto) 0.5 K/uL (0.3-1.0) Eosinophils # (Auto) 0.0 K/uL (0.0-0.5) Basophils # (Auto) 0.0 K/uL (0.0-0.1) Nucleated RBC Absolute Count (auto) 0.00 K/uL Glomerular Filtration Rate Calc > 60.0 Calcium Level 8.9 mg/dl (8.4-10.2) Magnesium Level 1.5 mg/dl (1.7-2.2) Total Bilirubin 2.0 mg/dl (0.2-1.3) Aspartate Amino Transf (AST/SGOT) 80 U/L (0-35) Alanine Aminotransferase (ALT/SGPT) 62 U/L (0-56) Alkaline Phosphatase 76 U/L (0-126) Total Protein 6.1 gm/dl (6.3-8.2) Albumin 3.2 g/dl (3.5-5.0) Muscle Strength and Tone: WNL Gait and Station: Steady [facility] Medications Reviewed: Side Effects, Benefits of Medication, Risks Allergies Reviewed: Yes Mental Status Exam General Appearance: Casual, No Well Groomed, No Good Eye Contact, Cooperative, Polite, Good Interaction, No Unkept, Tearful, No Psychomotor Agitation, No Psychomotor Retardation, No Bizarre Mannerisms, No Tics Speech: Clear, Spontaneous, Normal Rate, Normal Rhythm, No Normal Volume, Normal Tone Mood: Dysthmic/Depressed Affect: Calm, Tearful Thought Process: Organized, Logical, Goal Directed, No Loose Associations, No Flight of Ideas Thought Content: No Suicidal Ideation, No Homicidal Ideation, No Delusions, No Auditory Halllucinations, No Visual Hallucinations, No Thought Broadcasting, No Ideas of Reference, No Obsessions, No Compulsions Sensorium: Clear Cognition: Alert & Oriented-Person, Alert & Oriented-Place, Alert & Oriented- Time, Ppwza-Aycqioog-Kosmymvgg Memory: Immediate, Recent, Remote Intelligence: Average Insight Judgment: Fair (improving in absence of alcohol use. ) Result Diagram: 11/22/17181711/22/171817 [facility] Assessment and Plan Nela-en-Oktm Encounter Date: Nov 24, 2017 Bjjw-ap-Fhon Encounter Time: 11:00 [facility] Plan: Necessary Precautions, Individual/Group Therapy, Admin/Titrate Meds, Educate Patient Tobacco Medications: Started Multpiple Antipsychotics Used: No Problems: (1) Alcohol withdrawal Status: Acute (2) Alcohol use disorder, severe, in controlled environment Status: Chronic (3) Persistent depressive disorder Status: Chronic Condition 1. continue treatment, increase prozac to 40mg QAM 2. solidify entrance into rehab Problem Qualifiers (1) Alcohol withdrawal: Complication of substance-induced condition: uncomplicated Qualified Codes: F10.230 - Alcohol dependence with withdrawal, uncomplicated ROSIE GURROLA MD Nov 24, 2017 11:35
[2017-11-24 12:35] VITALS: BP 128/82
[2017-11-24 17:04] VITALS: BP 132/109
[2017-11-24] MEDS: NICOTINE INH SYSTEM 10 MG/INH INH PRN (20:16)
[2017-11-24] MEDS: traZODone HCL 50 MG TAB PO SCH (20:16)
[2017-11-24 21:59] VITALS: BP 134/94
[2017-11-24] MEDS ORDERED: traZODone HCL 50 MG TAB PO ONE (22:35)
[2017-11-24 23:14] VITALS: BP 144/105
[2017-11-25 02:09] VITALS: BP 142/92
[2017-11-25 06:20] VITALS: BP 119/82
[2017-11-25 06:31] LABS: PLATELET COUNT, AUTOMATED 106 K/uL (150-450)
[2017-11-25] MEDS: FOLIC ACID 1 MG TAB PO SCH (08:16)
[2017-11-25] MEDS: MULTIVITAMINS TAB PO SCH (08:17)
[2017-11-25] MEDS: THIAMINE HCL 100 MG TAB PO SCH (08:17)
[2017-11-25] MEDS: FLUoxetine HCL 20 MG CAP PO SCH (08:17)
--- NOTE | 2017-11-25 09:27 | RADIOLOGY IMAGING REPORT ---
FACILITY: [facility] PATIENT NAME: Oscar Milian : 1960 MR: [id number] V: [id number] EXAM DATE: ORDERING PHYSICIAN: ROSIE GURROLA TECHNOLOGIST: Location: [facility] Patient: Oscar Milian : 1960 Visit/Account:[id number] Date of Sevice: 11/25/2017 ORBITS FOREIGN BODY 1 VIEW HISTORY: Metal in eyes 23-25 years ago. COMPARISON: None. FINDINGS: Cummings view demonstrates no radiopaque foreign body in the region of the orbits. Frontal and maxillary sinuses are clear of fluid. IMPRESSION: Patient is cleared for MRI. Report Dictated By: Nadia Leiva MD at 11/25/2017 9:21 AM Report E-Signed By: Nadia Leiva MD at 11/25/2017 9:22 AM [id number]
--- NOTE | 2017-11-25 09:54 | BHS Progress Note ---
[facility] - Subjective Progress Notes Subjective Patient remains somewhat confused appearing today, but overall oriented. Patient struggling with incoordination today, not likely related to alcohol withdrawal or treatment with benzodiazepines. Will have MRI of brain today, as CT scanner is down, and patient has been falling. WBC's slightly elevated today, and platelets remain low. Will consider antibiotic and await MRI results. Patient will remain on the unit today, and will plan for entrance into rehab next week. Rehab entrance will be tentatively scheduled for the of November. Suicidal Ideation: None Homicidal Ideation: None [facility] - Objective Physical Exam Vital Signs Vital Signs Date Time Temp Pulse Resp B/P (MAP) Pulse Ox O2 Delivery O2 Flow Rate FiO2 11/25/17 06:20 99.5 84 119/82 (94) 95 Nasal Cannula 2.0 11/24/17 12:35 18 Muscle Strength and Tone: WNL Gait and Station: Unsteady [facility] Medications Reviewed: Side Effects, Benefits of Medication, Risks Allergies Reviewed: Yes Mental Status Exam General Appearance: Casual, No Well Groomed, No Good Eye Contact, Cooperative, Polite, Good Interaction, No Unkept, Tearful, No Psychomotor Agitation, No Psychomotor Retardation, No Bizarre Mannerisms, No Tics Speech: Clear, Spontaneous, Normal Rate, Normal Rhythm, No Normal Volume, Normal Tone Mood: Dysthmic/Depressed Affect: Calm, Tearful Thought Process: Organized, Logical, Goal Directed, No Loose Associations, No Flight of Ideas Thought Content: No Suicidal Ideation, No Homicidal Ideation, No Delusions, No Auditory Halllucinations, No Visual Hallucinations, No Thought Broadcasting, No Ideas of Reference, No Obsessions, No Compulsions Sensorium: Clear Cognition: Alert & Oriented-Person, Alert & Oriented-Place, Alert & Oriented- Time, Rnygo-Supgtevj-Otacsyldg Memory: Immediate, Recent, Remote Intelligence: Average Insight Judgment: Fair (improving in absence of alcohol use. ) Result Diagram: 11/25/17 0556 11/25/17 0556 [facility] Assessment and Plan Xqfp-dg-Pipm Encounter Date: Nov 25, 2017 Iaiz-bk-Tadn Encounter Time: 08:40 [facility] Plan: Necessary Precautions, Individual/Group Therapy, Admin/Titrate Meds, Educate Patient Tobacco Medications: Started Multpiple Antipsychotics Used: No Problems: (1) Alcohol withdrawal Status: Acute (2) Alcohol use disorder, severe, in controlled environment Status: Chronic (3) Persistent depressive disorder Status: Chronic Condition 1. MRI of head today today. 2. await results, and consider antibiotic, as WBC have increased, chest sounds clear. Problem Qualifiers (1) Alcohol withdrawal: Complication of substance-induced condition: uncomplicated Qualified Codes: F10.230 - Alcohol dependence with withdrawal, uncomplicated ROSIE GURROLA MD Nov 25, 2017 09:53
[2017-11-25 10:20] VITALS: BP 117/85
--- NOTE | 2017-11-25 10:39 | RADIOLOGY IMAGING REPORT ---
FACILITY: [facility] [place] PATIENT NAME: Oscar Milian : 1960 MR: [id number] V: [id number] EXAM DATE: ORDERING PHYSICIAN: ROSIE GURROLA TECHNOLOGIST: Location: [facility] [place] Patient: Oscar Milian : 1960 Visit/Account:[id number] Date of Sevice: 11/25/2017 MRI Brain without IV contrast Indication: Fall overnight. Poor balance. Comparison: None available Technique: Sagittal T1-weighted, axial FLAIR, T2-weighted T1-weighted, gradient echo, coronal T2-weig hted, axial diffusion weighted and ADC map images were obtained through the brain. IV contrast was n ot administered. Findings: No evidence of mass, mass effect, or midline shift. No acute intracranial hemorrhage or acute territorial infarction. Unremarkable appearance of the corpus callosum. Normal posterior pituitary bright spot noted. No restricted diffusion on the diffusion-weighted images. There is mild rightward nasal septal deviation also noted. Normal flow voids cerebral vasculature. Visualized paranasal sinuses and mastoid air cells appear clear. Bilateral globes are intact. IMPRESSION: 1. No acute intracranial abnormality identified. Report Dictated By: Lukas Elliott MD at 11/25/2017 10:30 AM Report E-Signed By: Lukas Elliott MD at 11/25/2017 10:33 AM WSN:[id number]
[2017-11-25 14:15] VITALS: BP 103/98
[2017-11-25] MEDS ORDERED: NICOTINE CARTRIDGE 1 EA PO ONE (15:01)
[2017-11-25] MEDS: NICOTINE INH SYSTEM 10 MG/INH INH PRN (15:07)
[2017-11-25 17:45] VITALS: BP 116/94
[2017-11-25] MEDS: traZODone HCL 50 MG TAB PO SCH (21:08)
[2017-11-25 21:18] VITALS: BP 123/70
[2017-11-26] MEDS ORDERED: traZODone HCL 50 MG TAB PO ONE (00:45)
[2017-11-26 07:22] LABS: PLATELET COUNT, AUTOMATED 103 K/uL (150-450)
[2017-11-26] MEDS: FOLIC ACID 1 MG TAB PO SCH (08:30)
[2017-11-26] MEDS: THIAMINE HCL 100 MG TAB PO SCH (08:30)
[2017-11-26] MEDS: MULTIVITAMINS TAB PO SCH (08:30)
[2017-11-26] MEDS: FLUoxetine HCL 20 MG CAP PO SCH (08:30)
[2017-11-26] MEDS ORDERED: THIA100T62 PO (09:54)
[2017-11-26] MEDS ORDERED: FOLI-68 PO (09:54)
[2017-11-26] MEDS ORDERED: MULT-859 PO (09:54)
[2017-11-26] MEDS ORDERED: NIC10R INH (09:55)
[2017-11-26 12:50] VITALS: BP 125/95
--- NOTE | 2017-11-26 13:33 | BHS Discharge Summary ---
[facility] Discharge Summary Cixa-zq-Gfxp Encounter Date: Nov 26, 2017 Szyh-kc-Jmat Encounter Time: 09:00 Reason-Hosp/Final Diag (DSM-V): (1) Alcohol use disorder, severe, in controlled environment Status: Chronic Hospital Course & Plan: Pt was successfully detoxed using valium and the CIWA protocol. Pt was unsteady on his feet and he fell, after which MRI of brain showed no acute intracranial abnormalities. Pt and family met in treatment team and son was supportive-- all in agreement that pt needed a rehab admission. Arrangements made to admit pt to [facility] in [place] on December 01. PPD was negative. Pt discharged home to son's house on 11/26; son will transport to [place] next week. Pt has a sponsor at [facility] in [place] and plans to attend daily meetings until rehab program. (2) Alcohol withdrawal Status: Acute (3) Persistent depressive disorder Status: Chronic Hospital Course & Plan: Pt was restarted on his trazodone and prozac. In the past he has taken as much as 100 mg of prozac per day; since he had been off of it we elected to restart at 20, then 49, and he was discharged on 60 mg per day. also discharged on trazodone 150 mg, take one half or one tab q HS for sleep. At no time while hospitalized did he report suicidal thinking. He did have mild chronic depressed mood and affect. He is satisfied that prozac and trazodone are helpful for him. Physical Exam Latest Vital Signs Vital Signs 11/25/17 11/25/17 17:45 21:18 Temp 99.1 Pulse 90 Resp 14 B/P (MAP) 123/70 (87) Pulse Ox 98 O2 Delivery Nasal Cannula O2 Flow Rate 1.0 Mental Status Exam General Appearance: Casual, No Well Groomed, No Good Eye Contact, Cooperative, Polite, Good Interaction, No Unkept, No Tearful, No Psychomotor Agitation, No Psychomotor Retardation, No Bizarre Mannerisms, No Tics, No Other Speech: Clear, Spontaneous, Normal Rate, Normal Rhythm, Normal Volume, Normal Tone Mood: Euthymic Affect: Full and Appropriate, Calm Thought Process: Organized, Logical, Goal Directed, No Loose Associations, No Flight of Ideas Thought Content: No Suicidal Ideation, No Homicidal Ideation, No Delusions, No Auditory Halllucinations, No Visual Hallucinations, No Thought Broadcasting, No Ideas of Reference, No Obsessions, No Compulsions Sensorium: Clear Cognition: Alert & Oriented-Person, Alert & Oriented-Place, Alert & Oriented- Time, Jdljr-Mswwzjfh-Njcazvppq Memory: Immediate, Recent, Remote Intelligence: Average Insight Judgment: Good Departure Result Diagram: 11/26/1763311/26/17633 Condition: Improved Discharge to: Home, Rehab Facility Discharge Instructions Home Meds Reported Medications Nicotine (NICOTROL) 10 Mg/Inh Ctr, 10 MG INH PRN Y for NICOTINE REPLACEMENT 11/26/17 Thiamine Hcl (THIAMINE HCL) 100 Mg Tablet, 100 MG PO DAILY 11/26/17 Multivits,Ca,Minerals/Iron/Fa (THERA-M TABLET) 1 Each Tablet, 1 EACH PO DAILY 11/26/17 Folic Acid (FOLIC ACID) 1 Mg Tablet, 1 MG PO QDAY, TAB 11/26/17 Fluoxetine Hcl (PROZAC) 20 Mg Capsule, 60 MG PO QDAY, CAPSULE 03/19/16 Trazodone Hcl (TRAZODONE HCL) 100 Mg Tablet, 75-150 PO QHS for PRN, TAB 03/15/16 Discontinued Reported Medications Thiamine Mononitrate (VITAMIN B-1) 100 Mg Tablet, 100 MG PO DAILY 11/05/17 Multivits,Ca,Minerals/Iron/Fa (THERA-M TABLET) 1 Each Tablet, 1 EACH PO DAILY 11/05/17 Folic Acid (FOLIC ACID) 1 Mg Tablet, 1 MG PO QDAY, TAB 11/05/17 Nicotine (NICOTROL) 10 Mg/Inh Ctr, 10 MG INH PRN Y for NICOTINE REPLACEMENT 11/05/17 Multpiple Antipsychotics Used: No Diet: Regular Activity: With Walker Special Instructions: Discharge to care of son. Await transfer with son to Residential Rehab in [place] at [facility]. ABSTAIN FROM ALCOHOL. Problem Qualifiers (1) Alcohol withdrawal: Complication of substance-induced condition: uncomplicated Qualified Codes: F10.230 - Alcohol dependence with withdrawal, uncomplicated JOSEMANUEL HAGER MD Nov 26, 2017 13:33
== END 2017-11-26 13:00 | DRG 897 ==
LOC: BHS 22:08
PROVIDERS: ADMIT Psychiatry & Neurology Psychiatry; ATTEND Psychiatry & Neurology Psychiatry
DX: F10.230 Alcohol dependence with withdrawal, uncomplicated (principal); F34.1 Dysthymic disorder; F12.90 Cannabis use, unspecified, uncomplicated; F10.24 Alcohol dependence with alcohol-induced mood disorder; Y90.8 Blood alcohol level of 240 mg/100 ml or more; Z62.820 Parent-biological child conflict; Z63.5 Disruption of family by separation and divorce
CPT/HCPCS: 36415; 70030; 70551; 81001; 82040; 82247; 82310; 82374; 82435; 82565; 82947; 83735; 84075; 84132; 84153; 84155; 84295; 84450; 84460; 84520; 85025; 86580; 93005

== ENCOUNTER 2018-05-19 21:24 | Emergency (ER) | payer SELFPAY ==
[2016-03-16 16:05] VITALS: Wt 52.2 kg
[~2018-05-19 21:24] MED LIST changes: +THIA100T62 PO; -TRAZ-163 PO; +TRAZ100T31 PO
[2018-05-19 21:30] VITALS: BP 128/104
--- NOTE | 2018-05-19 21:31 | ER Report ---
History and Physical Time Seen By MD: 21:31 HPI/ROS CHIEF COMPLAINT: Fall, right shoulder injury HISTORY OF PRESENT ILLNESS: 58-year-old male presents ambulatory to the ER complaining of right shoulder injury. Patient slipped and fell on the ice. He ended up landing on his right elbow. There is bruising of the elbow. He has pain up into his right shoulder. He is decreased range of motion. He denies head impact, neck pain, chest pain, shortness of breath. Patient denies any other injuries. Patient rates his pain as 6/10, aggravated by movement and palpation. Allergies: Coded Allergies: naproxen (Verified Allergy, Intermediate, HVES, 05/19/18) Home Meds Reported Medications Nicotine (NICOTROL) 10 Mg/Inh Ctr, 10 MG INH PRN PRN for NICOTINE REPLACEMENT 11/26/17 Thiamine Hcl (THIAMINE HCL) 100 Mg Tablet, 100 MG PO DAILY 11/26/17 Multivits,Ca,Minerals/Iron/Fa (THERA-M TABLET) 1 Each Tablet, 1 EACH PO DAILY 11/26/17 Folic Acid (FOLIC ACID) 1 Mg Tablet, 1 MG PO QDAY, TAB 11/26/17 Fluoxetine Hcl (PROZAC) 20 Mg Capsule, 60 MG PO QDAY, CAPSULE 03/19/16 Trazodone Hcl (TRAZODONE HCL) 100 Mg Tablet, 75-150 PO QHS for PRN, TAB 03/15/16 Reviewed Nurses Notes: Yes Old Medical Records Reviewed: Yes Hx Smoking: Yes Smoking Status: Current: Every Day Smoker Exposure to Second Hand Smoke?: Yes Hx Substance Use Disorder: Yes Hx Alcohol Use: Yes Constitutional Vital Sign - Last 24 Hours 05/19/18 21:30 Temp 98.7 Pulse 90 Resp 16 B/P (MAP) 128/104 Pulse Ox 94 O2 Delivery Room Air Physical Exam General appearance: Alert no distress. Respiratory: Chest is non tender, lungs are clear to auscultation. Cardiac: Regular rate and rhythm Extremities: Examination of the right upper extremity reveals moderate tenderness to the right shoulder. There is some bruising over the olecranon process. The elbow demonstrates good range of motion. The wrist is nontender. Patient insert strong grasp in the right upper extremity. All digits are neurovascularly intact. Palpation of the clavicle reveals no tenderness DIFFERENTIAL DIAGNOSIS: After history and physical exam differential diagnosis was considered for sprain, strain, fracture, dislocation, contusion,-year-old neck fracture Medical Decision Making EKG/Imaging Imaging X-ray: Two-view right shoulder was obtained. I viewed the images myself on the PACS system. My interpretation of the images is: No fracture no dislocation or malalignment. The radiologist interpretation had no clinically significant variation from this interpretation. ED Course/Re-evaluation ED Course Patient was admitted to an examination room. H&P was done. The differential diagnoses was considered. Patient with right shoulder pain after fall. A x- rays of the right shoulder ordered. The x-rays were unremarkable. Results are discussed with the patient. Patient advised to conservative treatment plan of ibuprofen and Tylenol as needed for pain relief. Patient advised to follow-up with primary care if unimproved in 3-5 days. Decision to Disposition Date: May 19, 2018 Decision to Disposition Time: 22:11 Depart Departure Latest Vital Signs Vital Signs Date Time Temp Pulse Resp B/P (MAP) Pulse Ox O2 Delivery O2 Flow Rate FiO2 05/19/18 21:30 98.7 90 16 128/104 94 Room Air Impression: Primary Impression: Sprain of right shoulder Condition: Improved Disposition: HOME OR SELF-CARE Patient Instructions: Shoulder Sprain (ED) Additional Instructions: Take ibuprofen 200 mg 3 tablets 3 times a day with food Apply ice packs to the affected area Follow up with primary care if unimproved in 3-5 days. Problem Qualifiers Primary Impression: Sprain of right shoulder Encounter type: initial encounter Shoulder sprain type: unspecified sprain Qualified Codes: S43.401A - Unspecified sprain of right shoulder joint, initial encounter ROLAND LAL DO May 19, 2018 21:31
--- NOTE | 2018-05-19 22:42 | RADIOLOGY IMAGING REPORT ---
FACILITY: [facility] [place] PATIENT NAME: Oscar Milian : 1960 MR: [id number] V: [id number] EXAM DATE: [id number] ORDERING PHYSICIAN: ROLAND LAL TECHNOLOGIST: Location: [facility] [place] Patient: Oscar Milian : 1960 Visit/Account:[id number] Date of Sevice: 05/19/2018 INDICATION: fell R shoulder pain EXAM DATE: 05/19/2018 9:34 PM COMPARISON: None. FINDINGS: 3 views of the right shoulder. Mineralization is normal. No acute alignment abnormality or fracture. Soft tissues are unremarkable. IMPRESSION: Normal right shoulder. Report Dictated By: Ishan Tinajero MD at 05/19/2018 10:35 PM Report E-Signed By: Ishan Tinajero MD at 05/19/2018 10:38 PM WSN:[id number]
== END 2018-05-19 22:18 | disposition home or self-care (01) ==
LOC: ER 21:33
DX: S43.401A Unspecified sprain of right shoulder joint, initial encounter (principal); W00.0XXA Fall on same level due to ice and snow, initial encounter
CPT/HCPCS: 99283

== ENCOUNTER 2018-08-07 14:43 | Inpatient (IN) | payer SELFPAY ==
[~2018-08-07] VITALS: Ht 167.6 cm; Wt 49.0 kg
--- NOTE | 2018-08-07 14:56 | ER Report ---
History and Physical Time Seen By MD: 14:56 HPI/ROS CHIEF COMPLAINT: Alcohol intoxication HISTORY OF PRESENT ILLNESS: Patient is a 58-year-old male here with complaints of alcohol intoxication. Patient is a poor historian as he is currently sig nificantly intoxicated. Patient is able to verbalize that he is here because he drinks too much. Patient's son brought the patient to the emergency department dropped him off and left shortly after patient was checked in so further history was not able to be obtained. Based upon patient's records, he has been admitted to behavioral services several times for alcohol detoxification. REVIEW OF SYSTEMS: Unable to obtain due to patient's intoxication status Allergies: Coded Allergies: naproxen (Verified Allergy, Intermediate, HVES, 05/19/18) Home Meds Reported Medications Nicotine (NICOTROL) 10 Mg/Inh Ctr, 10 MG INH PRN PRN for NICOTINE REPLACEMENT 11/26/17 Thiamine Hcl (THIAMINE HCL) 100 Mg Tablet, 100 MG PO DAILY 11/26/17 Multivits,Ca,Minerals/Iron/Fa (THERA-M TABLET) 1 Each Tablet, 1 EACH PO DAILY 11/26/17 Folic Acid (FOLIC ACID) 1 Mg Tablet, 1 MG PO QDAY, TAB 11/26/17 Fluoxetine Hcl (PROZAC) 20 Mg Capsule, 60 MG PO QDAY, CAPSULE 03/19/16 Trazodone Hcl (TRAZODONE HCL) 100 Mg Tablet, 75-150 PO QHS for PRN, TAB 03/15/16 Hx Smoking: Yes Smoking Status: Current: Every Day Smoker Exposure to Second Hand Smoke?: Yes Hx Substance Use Disorder: Yes Hx Alcohol Use: Yes Constitutional Vital Sign - Last 24 Hours 08/07/18 14:51 Temp 96.8 Pulse 99 Resp 18 B/P (MAP) 125/97 Pulse Ox 79 O2 Delivery Room Air Physical Exam General Appearance: The patient is intoxicated but has no immediate need for airway protection and no signs of toxicity. Unkempt Eyes: Pupils equal and round no pallor or injection. ENT, Mouth: Mucous membranes are moist. Respiratory: There are no retractions, lungs are clear to auscultation. Cardiovascular: Regular rate and rhythm. Gastrointestinal: Abdomen is soft and non tender, no masses, bowel sounds normal. Neurological: Intoxicated, somnolent, slurring speech but moving all extremities spontaneously Skin: Warm and dry, no rashes. Musculoskeletal: Neck is supple non tender. Extremities are nontender, nonswollen and have full range of motion. DIFFERENTIAL DIAGNOSIS: After history and physical exam differential diagnosis was considered for intoxication, dehydration, electrolyte abnormality, polysu bstance abuse Medical Decision Making Data Points Result Diagram: 08/07/18 1557 08/07/18 1557 Laboratory Hematology Test 08/07/18 15:57 Red Blood Count 5.43 M/uL (4.00-5.60) Mean Corpuscular Volume 96.3 fL (80.0-96.0) Mean Corpuscular Hemoglobin 32.3 pg (26.0-33.0) Mean Corpuscular Hemoglobin Concent 33.6 g/dL (32.0-36.0) Red Cell Distribution Width 16.0 % (11.5-14.5) Mean Platelet Volume 7.8 fL (7.2-11.1) Neutrophils (%) (Auto) 69.7 % (39.4-72.5) Lymphocytes (%) (Auto) 21.9 % (17.6-49.6) Monocytes (%) (Auto) 7.8 % (4.1-12.4) Eosinophils (%) (Auto) 0.0 % (0.4-6.7) Basophils (%) (Auto) 0.6 % (0.3-1.4) Nucleated RBC Relative Count (auto) 0.0 /100WBC Neutrophils # (Auto) 2.7 K/uL (2.0-7.4) Lymphocytes # (Auto) 0.8 K/uL (1.3-3.6) Monocytes # (Auto) 0.3 K/uL (0.3-1.0) Eosinophils # (Auto) 0.0 K/uL (0.0-0.5) Basophils # (Auto) 0.0 K/uL (0.0-0.1) Nucleated RBC Absolute Count (auto) 0.00 K/uL Sodium Level 140 mmol/L (137-145) Potassium Level 3.4 mmol/L (3.5-5.0) Chloride Level 98 mmol/L (98-107) Carbon Dioxide Level 29 mmol/L (22-30) Blood Urea Nitrogen 7 mg/dl (9-21) Creatinine 0.70 mg/dl (0.66-1.25) Glomerular Filtration Rate Calc > 60.0 Random Glucose 142 mg/dl (75-110) Calcium Level 8.4 mg/dl (8.4-10.2) Magnesium Level 1.7 mg/dl (1.7-2.2) Total Bilirubin 0.6 mg/dl (0.2-1.3) Aspartate Amino Transf (AST/SGOT) 45 U/L (0-35) Alanine Aminotransferase (ALT/SGPT) 31 U/L (0-56) Alkaline Phosphatase 66 U/L (0-126) Total Protein 7.2 g/dl (6.3-8.2) Albumin 4.1 g/dl (3.5-5.0) Salicylates Level < 10 mg/L Salicylate Last Dose Date unknown Acetaminophen Level < 10 ug/ml Serum Alcohol 390 mg/dl Chemistry Test 08/07/18 15:57 White Blood Count 3.8 k/uL (4.5-11.0) Red Blood Count 5.43 M/uL (4.00-5.60) Hemoglobin 17.5 g/dL (14.0-18.0) Hematocrit 52.2 % (42.0-52.0) Mean Corpuscular Volume 96.3 fL (80.0-96.0) Mean Corpuscular Hemoglobin 32.3 pg (26.0-33.0) Mean Corpuscular Hemoglobin Concent 33.6 g/dL (32.0-36.0) Red Cell Distribution Width 16.0 % (11.5-14.5) Platelet Count 159 K/uL (150-450) Mean Platelet Volume 7.8 fL (7.2-11.1) Neutrophils (%) (Auto) 69.7 % (39.4-72.5) Lymphocytes (%) (Auto) 21.9 % (17.6-49.6) Monocytes (%) (Auto) 7.8 % (4.1-12.4) Eosinophils (%) (Auto) 0.0 % (0.4-6.7) Basophils (%) (Auto) 0.6 % (0.3-1.4) Nucleated RBC Relative Count (auto) 0.0 /100WBC Neutrophils # (Auto) 2.7 K/uL (2.0-7.4) Lymphocytes # (Auto) 0.8 K/uL (1.3-3.6) Monocytes # (Auto) 0.3 K/uL (0.3-1.0) Eosinophils # (Auto) 0.0 K/uL (0.0-0.5) Basophils # (Auto) 0.0 K/uL (0.0-0.1) Nucleated RBC Absolute Count (auto) 0.00 K/uL Glomerular Filtration Rate Calc > 60.0 Calcium Level 8.4 mg/dl (8.4-10.2) Magnesium Level 1.7 mg/dl (1.7-2.2) Total Bilirubin 0.6 mg/dl (0.2-1.3) Aspartate Amino Transf (AST/SGOT) 45 U/L (0-35) Alanine Aminotransferase (ALT/SGPT) 31 U/L (0-56) Alkaline Phosphatase 66 U/L (0-126) Total Protein 7.2 g/dl (6.3-8.2) Albumin 4.1 g/dl (3.5-5.0) Salicylates Level < 10 mg/L Salicylate Last Dose Date unknown Acetaminophen Level < 10 ug/ml Serum Alcohol 390 mg/dl Toxicology Test 08/07/18 15:57 Salicylates Level < 10 mg/L Salicylate Last Dose Date unknown Acetaminophen Level < 10 ug/ml Serum Alcohol 390 mg/dl ED Course/Re-evaluation ED Course Patient is a 58-year-old male here with alcohol intoxication with an alcohol level of 390. Patient reports that he had been sober for several months but relapsed approximately 2 weeks ago and has been on a binge. Patient admits to drinking a half a pint today which is incongruent with his current level of intoxication. Patient reports that he is interested in going through detoxification from alcohol and returning to sobriety. Patient takes Celexa intermittently but denies other substance abuse. Patient was initially found to be 79% on room air likely secondary to respiratory depression secondary to alcohol consumption. I discussed the patient with Dr. Arnold however behavioral health services was full so patient was discussed with Dr. Bansal who admitted the patient to hospitalist service. Decision to Disposition Date: Aug 07, 2018 Decision to Disposition Time: 16:40 Depart Departure Latest Vital Signs Vital Signs Date Time Temp Pulse Resp B/P (MAP) Pulse Ox O2 Delivery O2 Flow Rate FiO2 08/07/18 14:51 96.8 99 18 125/97 79 Room Air Impression: Primary Impression: Alcohol intoxication in active alcoholic Condition: Condition Unchanged Disposition: Admitted from ER CRISS HAYES DO Aug 07, 2018 14:57
[2018-08-07 16:05] LABS: PLATELET COUNT, AUTOMATED 159 K/uL (150-450)
[2018-08-07] MEDS ORDERED: NS(*) 0.9% 1000 ML BAG 1,000 ML IV ONE (16:40)
[2018-08-07 17:25] VITALS: BP 156/98
[2018-08-07] MEDS ORDERED: DIAZEPAM 10 MG TAB PO PRN (17:50)
--- NOTE | 2018-08-07 18:00 | History & Physical ---
History of Present Illness Chief Complaint Intoxication History of Present Illness This patient presented to the emergency room heavily intoxicated with alcohol. He was initially apneic with low oxygen saturations, but is now more alert. He is requesting alcohol detox. He reports a prior history of heavy withdrawal with seizures. History Problems: (1) Alcohol withdrawal Status: Acute Home Meds Reported Medications Nicotine (NICOTROL) 10 Mg/Inh Ctr, 10 MG INH PRN PRN for NICOTINE REPLACEMENT 11/26/17 Thiamine Hcl (THIAMINE HCL) 100 Mg Tablet, 100 MG PO DAILY 11/26/17 Multivits,Ca,Minerals/Iron/Fa (THERA-M TABLET) 1 Each Tablet, 1 EACH PO DAILY 11/26/17 Folic Acid (FOLIC ACID) 1 Mg Tablet, 1 MG PO QDAY, TAB 11/26/17 Fluoxetine Hcl (PROZAC) 20 Mg Capsule, 60 MG PO QDAY, CAPSULE 03/19/16 Trazodone Hcl (TRAZODONE HCL) 100 Mg Tablet, 75-150 PO QHS for PRN, TAB 03/15/16 Allergies: Coded Allergies: naproxen (Verified Allergy, Intermediate, ES, 05/19/18) Patient History: FH: alcohol abuse FATHER, Hx Smoking: Yes Smoking Status: Current: Every Day Smoker Exposure to Second Hand Smoke?: Yes Caffeine Intake: Coffee, Soda Caffeine/Cups Per Day: 4 Hx Alcohol Use: Yes Alcohol Used: Liquor Hx Substance Use Disorder: Yes Social Drug Use: Former Social Drugs: Marijuana Review of Systems All Systems Reviewed/Normal: Yes Exam Vital Signs Vital Signs Date Time Temp Pulse Resp B/P (MAP) Pulse Ox O2 Delivery O2 Flow Rate FiO2 08/07/18 17:25 97.8 68 16 156/98 (117) 94 Nasal Cannula 2.0 Neuro: No Gross deficits Eyes: PERRLA Cardiovascular: Regular Rate and Rhythm Respiratory: Clear to Auscultation Extremities: No Edema Integumentary: No Cyanosis Medical Decision Making Data Points Result Diagram: 08/07/18 5927 08/07/18 8669 Assessment and Plan Problems: (1) Alcohol intoxication in active alcoholic Status: Resolved Assessment & Plan: He did present heavily intoxicated, but is now requesting help with alcohol withdrawal and detoxification. He has been placed on CIWA protocol and thiamine. He will transfer to [facility] once a room is available. Venous Thromboembolism Antithrombotics Is Pt On Any Antithrombotics?: No Exam Sepsis Risk: No Definite Risk DALLIN RESTREPO DO Aug 07, 2018 18:00
[2018-08-07 20:00] VITALS: BP 126/86
[2018-08-07 23:01] VITALS: BP 133/92
[2018-08-07] MEDS: DIAZEPAM 10 MG TAB PO PRN (23:43)
[2018-08-08] VITALS (10 sets, daily range): BP systolic 136–153; BP diastolic 87–109; Ht 167.6 cm; Wt 49.0 kg
--- NOTE | 2018-08-08 05:45 | NUR ---
Pt up to BR with assist. HR= 140-160's. Valium 20 mg PO given. CIWA score=18.
[2018-08-08] MEDS: DIAZEPAM 10 MG TAB PO PRN ×5 (05:48→23:52)
[2018-08-08 05:54] LABS: PLATELET COUNT, AUTOMATED 121 K/uL (150-450)
[2018-08-08] MEDS: ENOXAPARIN 40 MG/0.4ML SYR SC SCH (08:16)
[2018-08-08] MEDS: FOLIC ACID 1 MG TAB PO SCH (08:16)
[2018-08-08] MEDS: THIAMINE HCL 200 MG/2 ML INJ IVP SCH (08:16)
[2018-08-08] MEDS ORDERED: MAGNESIUM SUL* 2 GM/50 ML IVPB 50 ML IVPB ONE (09:30)
[2018-08-08] MEDS: POTASSIUM CHL 10 MEQ TABCR PO SCH ×2 (10:07→16:33)
[2018-08-08] MEDS ORDERED: NS(*) 0.9% 250 ML BAG 250 ML ONE (10:08)
--- NOTE | 2018-08-08 11:14 | Hospitalist Progress Note ---
Subjective Progress Notes Subjective He has no focal complaints. Scoring up to 18 on CIWA. Physical Exam Vital Signs Date Time Temp Pulse Resp B/P (MAP) Pulse Ox O2 Delivery O2 Flow Rate FiO2 08/08/18 07:37 92 Nasal Cannula 3.0 08/08/18 07:20 97.8 80 18 136/94 (108) Intake and Output 08/08/18 07:00 Intake Total 1840 ml Balance 1840 ml Intake Oral 1640 ml IV Total 200 ml # Voids 3 # Bowel Movements 1 General Appearance: Other (Awakens easily. Breathing comfortably. Possible extremity tremore) Neuro: No Gross deficits (Knows where he is and why he is here. Knows date) Cardiovascular: Regular Rate and Rhythm Respiratory: Clear to Auscultation Extremities: No Edema Result Diagram: 08/08/1853308/08/18533 Assessment and Plan Problems: (1) Alcohol intoxication in active alcoholic Status: Resolved Assessment & Plan: He did present heavily intoxicated and requesting help with alcohol withdrawal and detoxification. He has been placed on CIWA protocol and thiamine. He will transfer to [facility] once a room is available. (2) Hypokalemia Status: Acute Assessment & Plan: Secondary to alcohol use. Will give supplementation and give a dose of Mg. Will follow. Exam Sepsis Risk: No Definite Risk JILL HUSAIN MD Aug 08, 2018 11:14
[2018-08-08] MEDS ORDERED: INFLUENZA VIRUS VAC 0.5ML SYR IM ONLY ONE (17:50)
[2018-08-09] VITALS (7 sets, daily range): BP systolic 132–152; BP diastolic 96–119
[2018-08-09 05:45] LABS: PLATELET COUNT, AUTOMATED 100 K/uL (150-450)
[2018-08-09] MEDS: POTASSIUM CHL 10 MEQ TABCR PO SCH (09:11)
[2018-08-09] MEDS: FOLIC ACID 1 MG TAB PO SCH (09:13)
[2018-08-09] MEDS: ENOXAPARIN 40 MG/0.4ML SYR SC SCH (09:26)
[2018-08-09] MEDS: THIAMINE HCL 200 MG/2 ML INJ IVP SCH (09:26)
[2018-08-09] MEDS: DIAZEPAM 10 MG TAB PO PRN ×3 (09:31→22:11)
--- NOTE | 2018-08-09 12:15 | Hospitalist Progress Note ---
Subjective Progress Notes Subjective He is somewhat tremulous. He has received a dose of Valium earlier this AM per CIWA. Physical Exam Vital Signs Date Time Temp Pulse Resp B/P (MAP) Pulse Ox O2 Delivery O2 Flow Rate FiO2 08/09/18 12:05 97.9 75 18 148/105 (119) 92 Nasal Cannula 2.0 Intake and Output 08/09/18 07:00 Intake Total 1530 ml Balance 1530 ml Intake Oral 1480 ml IV Total 50 ml # Voids 4 General Appearance: Alert, Awake, Other (slightly tremulous) Cardiovascular: Regular Rate and Rhythm Respiratory: Clear to Auscultation GI: Soft and Non-Tender Result Diagram: 08/09/1852108/09/18521 Assessment and Plan Problems: (1) Alcohol intoxication in active alcoholic Status: Resolved Assessment & Plan: He did present heavily intoxicated and requesting help with alcohol withdrawal and detoxification. He has been placed on CIWA protocol and thiamine. He is still requiring intermittent doses of Valium. He is stating he still wants to finish detox and stay abstinent with respect to alcohol. Will see if the Substance Abuse Counselor can meet with him to discuss options to help him maintain abstinence. (2) Hypokalemia Status: Acute Assessment & Plan: Secondary to alcohol use. Resolved with supplements. Will follow. Exam Sepsis Risk: No Definite Risk TIFFANI CABALLERO MD Aug 09, 2018 12:15
[2018-08-09] MEDS ORDERED: NICOTINE INH SYSTEM 10 MG/INH INH PRN (16:40)
[2018-08-09] MEDS ORDERED: NICOTINE CARTRIDGE 1 EA PO PRN (16:45)
[2018-08-10 03:23] VITALS: BP 112/96
[2018-08-10 06:23] LABS: PLATELET COUNT, AUTOMATED 95 K/uL (150-450)
[2018-08-10 08:10] VITALS: BP 124/101
[2018-08-10] MEDS ORDERED: THIAMINE HCL 100 MG TAB PO SCH (09:00)
[2018-08-10] MEDS: FOLIC ACID 1 MG TAB PO SCH (09:37)
--- NOTE | 2018-08-10 10:23 | Hospitalist Depart ---
Discharge Summary Reason for Hosp/Final Diag: (1) Alcohol intoxication in active alcoholic Status: Resolved Hospital Course & Plan: He did present heavily intoxicated and requesting help with alcohol withdrawal and detoxification. He was placed on CIWA protocol and thiamine. He is still requiring intermittent doses of Valium. He is stating he still wants to finish detox and stay abstinent with respect to alcohol. He does want to be admitted to [facility] for continuation of detox. He was accepted by Dr. Arnold to [facility] unit. (2) Hypokalemia Status: Acute Hospital Course & Plan: Secondary to alcohol use. Resolved with supplements. Departure Latest Vital Signs Vital Signs 08/10/18 08/10/18 08/10/18 03:23 08:10 09:39 Temp 97.6 Pulse 82 Resp 14 B/P (MAP) 124/101 (109) Pulse Ox 92 O2 Delivery Nasal Cannula O2 Flow Rate 1.0 Weight (Pounds): 108 Result Diagram: 08/10/18 0600 08/10/18 0600 Condition: Improved Discharge: [facility] Discharge Instructions Home Meds Reported Medications Nicotine (NICOTROL) 10 Mg/Inh Ctr, 10 MG INH PRN PRN for NICOTINE REPLACEMENT 11/26/17 Thiamine Hcl (THIAMINE HCL) 100 Mg Tablet, 100 MG PO DAILY 11/26/17 Multivits,Ca,Minerals/Iron/Fa (THERA-M TABLET) 1 Each Tablet, 1 EACH PO DAILY 11/26/17 Folic Acid (FOLIC ACID) 1 Mg Tablet, 1 MG PO QDAY, TAB 11/26/17 Fluoxetine Hcl (PROZAC) 20 Mg Capsule, 60 MG PO QDAY, CAPSULE 03/19/16 Trazodone Hcl (TRAZODONE HCL) 100 Mg Tablet, 75-150 PO QHS for PRN, TAB 03/15/16 Diet: Regular Activity: As Tolerated Venous Thromboembolism Antithrombotics Is Pt On Any Antithrombotics?: No JUANCARLOS PATTEN Aug 10, 2018 10:23
[2018-08-11] MEDS ORDERED: THIAMINE HCL 100 MG TAB PO SCH (09:00)
== END 2018-08-10 12:00 | DRG 897 ==
LOC: ER 15:03 → MED 16:46
PROVIDERS: ADMIT Family Medicine; ATTEND Family Medicine
DX: F10.230 Alcohol dependence with withdrawal, uncomplicated (principal); E87.6 Hypokalemia; F17.210 Nicotine dependence, cigarettes, uncomplicated; Z88.8 Allergy status to other drugs, medicaments and biological substances; Y90.8 Blood alcohol level of 240 mg/100 ml or more
CPT/HCPCS: 36415; 80305; 80320; 80329; 81001; 82040; 82247; 82310; 82374; 82435; 82565; 82947; 83735; 84075; 84132; 84155; 84295; 84443; 84450; 84460; 84520; 85025; 96360; 99284; J1650; J3411; J3475; J7030; J7050

== ENCOUNTER 2018-08-10 12:00 | Inpatient (IN) | payer SELFPAY ==
[2018-08-08 09:15] VITALS: Ht 165.1 cm; Wt 49.0 kg
[~2018-08-10] VITALS: Ht 165.1 cm; Wt 49.0 kg
[2018-08-10 12:02] VITALS: BP 121/103
[2018-08-10] MEDS ORDERED: NICOTINE CARTRIDGE 1 EA PO PRN (13:00)
[2018-08-10] MEDS ORDERED: ACETAMINOPHEN 325 MG TAB PO PRN (13:00)
[2018-08-10] MEDS ORDERED: MAG HYD/AL HYD/SIMETH 30ML UDC PO PRN (13:00)
[2018-08-10 16:40] VITALS: BP 140/95
[2018-08-10 20:40] VITALS: BP 130/95
[2018-08-10] MEDS ORDERED: DIAZEPAM 10 MG TAB PO ONE (21:00)
[2018-08-11 04:07] VITALS: BP 108/76
[2018-08-11] MEDS ORDERED: VENLAFAXINE REG 37.5 MG TAB PO ONE (06:00)
[2018-08-11] MEDS: THIAMINE HCL 100 MG TAB PO SCH (08:05)
[2018-08-11] MEDS: FOLIC ACID 1 MG TAB PO SCH (08:05)
[2018-08-11] MEDS: MULTIVITAMINS PO SCH (08:05)
--- NOTE | 2018-08-11 08:06 | HISTORY AND PHYSICAL ---
DATE OF ADMISSION: August 10, 2018 PRESENTING PROBLEM/CHIEF COMPLAINT Mr. Galvan presented to the emergency room on the day prior to admission to [facility] requesting help with medical detox. He was initially admitted to the medical floor and placed on CIAZ protocol. He is a voluntary admission to [facility] on the afternoon of August 10, 2018. I met with Mr. Milian at about 4 p.m. on the afternoon of August 10, 2018, on the Behavioral Health Unit. He states that he began drinking again about three weeks ago and that this was precipitated by some overwhelming stresses. He had been living with his ex- and former [id number] as well as his adult son but the stress at home became too much for him to cope with so he moved out and got his own apartment. His adult son is addicted to heroin and was threatening him and the family for money. He was frustrated that his ex- was continuing to give his son money and allow him to live in their home while abusing heroin. After he moved out and got his own apartment, Oscar began drinking again and was up to about two pints per day. 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 He is frustrated because he feels all along and says that his family will not talk to him because of his drinking. Now he is on the verge of homelessness because he cannot pay his rent. Yesterday, he was talking about not wanting to be alive but today denies feeling suicidal; however, he does admit that he is severely depressed and feels hopeless. He says that he drinks to sleep and he drinks to get up and he knows that he needs to get sober once again. He feels guilty about his son's abuse of heroin and feels that somehow he is to blame that his son ended up this way. Mr. Milian describes a number of depressive symptoms including feeling hopeless, tired, having sleep problems, feeling overwhelming self-doubt and criticism, thoughts about and terrible feeling of sadness. He was on Prozac for his mood, which helped his anxiety but he says did not help his depression much. He quit taking Prozac about three weeks ago. Mr. Galvan denies any symptoms of haim but also affirms symptoms of generalized anxiety including excessive worry, nervousness, inability to relax and difficulty sleeping even when he is not drinking. PAST PSYCHIATRIC HISTORY Mr. Milian was last admitted to [facility] on November 21, 2017, when he was again admitted for medical detox. He was treated successfully per the [facility] protocol and also was started on Prozac and Trazodone for depression and insomnia, which predated his alcohol abuse. He was released and admitted to [facility] in [place] for residential treatment of his alcoholism. Mr. Milian reports that he successfully completed that program and "it did me a lot of good". In addition to this admission for residential treatment, he has also had outpatient treatment for depression and alcoholism at [facility]. He denies prior suicide attempts but admits that he has thought about it. He has no history of violence or of self-harm. ALLERGIES Mr. Galvan is allergic to NAPROXEN. FAMILY PSYCHIATRIC HISTORY Mr. Milian's son is addicted to heroin. His father also drank heavily. PAST MEDICAL HISTORY Mr. Milian denies any serious or chronic health problems. He typically takes no other medications besides Prozac. He is a smoker and typically smokes about one pack of cigarettes per day. SOCIAL HISTORY Mr. Galvan was born in [place] and raised in [place] and "all over". He went to school in [place] and dropped out in the ninth grade. 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 He was for 33 years to his ex- but they eight years ago. He says that he is frustrated because he helped her get through school but after she graduated and became an accountant manager the difference in their earning potential changed and he felt like a lesser partner in the marriage. He also says that his ex- was critical of him and indulgence of their sons and they could not agree on how to parent them. SUBSTANCE ABUSE HISTORY Mr. Milian began drinking as a teenager. He typically drinks hard liquor but he has also used cannabis from time to time. He denies use of other drugs. PHYSICAL EXAMINATION VITAL SIGNS: On admission to [facility], the patient's temperature is 99.0, pulse 95, respirations 14, blood pressure 121/103, oxygen saturation 92% on room air. He is 65 inches tall and weighs 108 pounds, giving him a BMI of 18.0. Please see the hospitalist's note for further physical examination. LABORATORY DATA A chem panel drawn on August 10 finds sodium slightly low at 134, potassium 4.0, chloride 99, CO2 25. Renal function studies are within normal limits. Random glucose is 124. Total bilirubin is slightly elevated at 1.5. AST is 39, which is elevated, and ALT is normal at 37. Remaining values are within normal limits. Magnesium was 1.8. Urine toxicology was positive for THC but otherwise entirely negative. Urinalysis showing no signs of bacteremia but was a dilute urine. CBC finds hemoglobin of 17.7 and hematocrit elevated at 52.5. Total WBCs are 5.8. Platelets are low at 95. MENTAL STATUS EXAM Mr. Galvan presents as a well-developed but very thin male who appears older than his stated age of 58. He is wearing hospital scrubs and lying in bed when I spoke with him. He is still feeling the effects of alcohol withdrawal and is a bit shaky and does not feel well physically. His attitude is cooperative throughout this interview with good eye contact, although he appears to be somewhat guarded about his thoughts about suicide and admits that he is afraid of being held involuntarily. He is oriented to all spheres. He describes his mood as depressed and anxious and his affect is tearful and consistent with his expressed mood. There is a suggestion of psychomotor retardation. His speech is normal in rate and volume. His responses are clear, logical and goal-oriented and I could find no evidence of psychotic thought processes during this interview. He denies any thoughts about suicide today or about violence towards others, although he does admit to feeling helpless to having thought about suicide. His memory for immediate, recent and long-term events appears to be intact based on this interview and his responses. Intelligence is judged to be at least average. He shows good insight into his need to get sober again and a desire to do this as well as to address his depression with medication and therapy, although he admits that he is not sure he will ever get better. ASSESSMENT Mr. Galvan is suffering from both severe depression as well as a relapse into heavy drinking. He has a long history of alcohol abuse, which has taken a tremendous toll on his relationship with his family as well as his financial situation and his professional development. Although he denies ever attempting suicide, he has a number of risk factors for suicide including being , lack of family support, financial stresses, his age and ethnicity as well as his drinking. In the past, he has been treated with Prozac for his depression, which he found helped his anxiety but did not do a lot for his depression even when he was sober. INITIAL PSYCHIATRIC DIAGNOSIS Alcohol use disorder, severe. Acute alcohol withdrawal. Major depressive episode, recurrent, severe. Life circumstance stresses including recent job loss, divorce, son's heroin abuse and potential homelessness. PLAN 1. Mr. Milian is admitted to Behavioral Health and will be placed on suicide precautions. We will also watch him for fall risks. 2. He will participate in individual and group therapy. 3. After some discussion about options, I suggested that we try a different antidepressant and we agreed to begin a trial of venlafaxine, beginning in the morning. 4. We will continue CIAZ protocol for alcohol withdrawal symptoms. 5. A treatment team's meeting is scheduled for tomorrow morning. I hope to involve the patient's family in his care and hope to elicit support from them. 6. Also during this admission, we will focus on developing an after-care plan to help address Mr. Milian's depression as well as his alcohol abuse. He has friends at that he has contacted and we will hopefully get him reconnected with that support group. 7. Estimated length of stay is three to five days. 8. Finally, prior to discharge, we will address homeless factors. AL
[2018-08-11] MEDS ORDERED: LOPERAMIDE HCL 2 MG CAP PO ONE (08:25)
[2018-08-11] MEDS ORDERED: LOPERAMIDE HCL 2 MG CAP PO PRN (08:25)
--- NOTE | 2018-08-11 09:36 | BHS Progress Note ---
S - Subjective Progress Notes Subjective Today, 08/11: We started Effexor XR at 37.5 mgs this morning and Oscar received 10 mgs of diazepam last night. His CIWA scores have not been high enough to warrant further diazepam. Oscar did not feel well enough to attend treatment team this morning, but is up for lunch. He ate very little and tells me that he is too depressed to eat. He has lost more weight. He is down to 108 pounds giving him a BMI of 18. Denies craving for alcohol Rates desire to be alive at a "five or six out of ten." Assures me he will not attempt to harm himself on the unit. Alessandro is sad that he has not heard from his family. We processed this and explored options. Alessandro often takes trazodone 150 mgs for sleep. We agreed to continue this and also to keep advancing the Effexor. Had a little diarrhea this morning but it has been happening before today. Suicidal Ideation: Ongoing [facility] - Objective Physical Exam Vital Signs 98.1, 108/76, 96, 90% S Medications Reviewed: Side Effects, Benefits of Medication, Risks Allergies Reviewed: Yes Mental Status Exam General Appearance: Casual, Cooperative, Unkept, Psychomotor Retardation Speech: Clear, Spontaneous Mood: Dysthmic/Depressed Affect: Sad Thought Process: Organized, Logical, Goal Directed; No Loose Associations Thought Content: Suicidal Ideation; No Homicidal Ideation, No Delusions Sensorium: Clear Cognition: Alert & Oriented-Person, Alert & Oriented-Place, Alert & Oriented- Time, Fsffp-Yslrsfkw-Ifolmhrva Memory: Immediate, Recent, Remote Intelligence: Average Insight Judgment: Good [facility] Assessment and Plan Sfar-js-Higb Encounter Date: Aug 11, 2018 Opyd-ob-Zuin Encounter Time: 13:00 [facility] Plan: Admit to Unit, Necessary Precautions, Individual/Group Therapy, Admin/Titrate Meds, Educate Patient Tobacco Medications: Started (Nicotine replacement) Problems: (1) Major depression, recurrent, chronic Status: Chronic (2) Alcohol withdrawal Status: Acute (3) Alcohol use disorder, severe, in controlled environment Status: Chronic Condition Plan 08/11: 1. Advance Effexor XR to 75 mgs daily beginning tomorrow. 2. Add trazodone 150 mgs at hs for sleep. Might consider using this as an antidepressant at a higher dose as an alternative to Effexor 3. Encouraged Oscar to call his family NOE FARRELL DO Aug 11, 2018 06:31
[2018-08-11 12:10] VITALS: BP 110/84
[2018-08-11] MEDS: traZODone HCL 50 MG TAB PO SCH (20:36)
[2018-08-12 06:30] VITALS: BP 94/76
[2018-08-12] MEDS: VENLAFAXINE REG 75 MG TAB PO SCH (08:33)
[2018-08-12] MEDS: MULTIVITAMINS PO SCH (08:33)
[2018-08-12] MEDS: FOLIC ACID 1 MG TAB PO SCH (08:33)
[2018-08-12] MEDS: THIAMINE HCL 100 MG TAB PO SCH (08:33)
--- NOTE | 2018-08-12 09:16 | BHS Progress Note ---
BHS - Subjective Progress Notes Subjective "I'm still overall depressed because I'm not sure what I'm going to do when I get out of here. I may sleep in my truck, go to my son's or get a camper." CIWA scores not warranting Valium, denies tremor, N/V//D Went to residential treatment in [place] for two and half months six to eight mon ths ago Started on Effexor and Trazodone Suicidal Ideation: None Homicidal Ideation: None [facility] - Objective Physical Exam Vital Signs Medications (Trade) Dose Ordered Sig/Vandana Route PRN Reason Start Time Stop Time Status Last Admin Dose Admin Al Hydrox/Mg Hydrox/Simethicone (Maalox(*) 30 ml Udcup (Or Equiv)) 30 ml Q4H PRN PO DYSPEPSIA 08/10/18 13:00 09/09/18 12:59 08/11/18 04:05 Diazepam (Valium(*) 10 Mg Tab (Or Equiv)) 10 mg HS ONCE PO 08/10/18 21:00 08/10/18 21:01 DC 08/10/18 20:33 Folic Acid (Folic Acid (*) 1 Mg Tab) 1 mg QDAY PO 08/11/18 09:00 09/10/18 08:59 08/12/18 08:33 Loperamide HCl (Imodium 2 Mg Cap (Or Equiv)) 4 mg ONCE ONCE PO 08/11/18 08:25 08/11/18 08:30 DC 08/11/18 08:33 Multivitamins (Thera-M Enhanced Tab (Or Equiv)) 1 each QDAY PO 08/11/18 09:00 09/10/18 08:59 08/12/18 08:33 Thiamine HCl (Vitamin B-1(*) 100 Mg Tab (Or Equiv)) 100 mg QDAY PO 08/11/18 09:00 09/10/18 08:59 08/12/18 08:33 Trazodone HCl (Desyrel 50 Mg Tab (Or Equiv)) 150 mg QHS PO 08/11/18 21:00 09/10/18 20:59 08/11/18 20:36 Venlafaxine HCl (Effexor 37.5 Mg Tab (Or Equiv)) 37.5 mg ONCE ONCE PO 08/11/18 06:00 08/11/18 06:02 DC 08/11/18 07:38 Venlafaxine HCl (Effexor 75 Mg Tab (Or Equiv)) 75 mg QDAY PO 08/12/18 09:00 09/11/18 08:59 08/12/18 08:33 Muscle Strength and Tone: WNL Gait and Station: Steady [facility] Medications Reviewed: Side Effects, Benefits of Medication, Risks Allergies Reviewed: Yes Mental Status Exam General Appearance: Casual, Cooperative, Unkept, Psychomotor Retardation Speech: Clear, Spontaneous, Normal Rate, Normal Rhythm, Normal Volume, Normal Tone Mood: Dysthmic/Depressed Affect: Sad, Neutral Thought Process: Organized, Logical, Goal Directed; No Loose Associations Thought Content: Suicidal Ideation; No Homicidal Ideation, No Delusions Sensorium: Clear Cognition: Alert & Oriented-Person, Alert & Oriented-Place, Alert & Oriented- Time, Cfwrf-Rqiuifgf-Rnyuaasit Memory: Immediate, Recent, Remote Intelligence: Average Insight Judgment: Fair; No Good Microbiology Medications (Trade) Dose Ordered Sig/Vandana Route PRN Reason Start Time Stop Time Status Last Admin Dose Admin Al Hydrox/Mg Hydrox/Simethicone (Maalox(*) 30 ml Udcup (Or Equiv)) 30 ml Q4H PRN PO DYSPEPSIA 08/10/18 13:00 09/09/18 12:59 08/11/18 04:05 Diazepam (Valium(*) 10 Mg Tab (Or Equiv)) 10 mg HS ONCE PO 08/10/18 21:00 08/10/18 21:01 DC 08/10/18 20:33 Folic Acid (Folic Acid (*) 1 Mg Tab) 1 mg QDAY PO 08/11/18 09:00 09/10/18 08:59 08/12/18 08:33 Loperamide HCl (Imodium 2 Mg Cap (Or Equiv)) 4 mg ONCE ONCE PO 08/11/18 08:25 08/11/18 08:30 DC 08/11/18 08:33 Multivitamins (Thera-M Enhanced Tab (Or Equiv)) 1 each QDAY PO 08/11/18 09:00 09/10/18 08:59 08/12/18 08:33 Thiamine HCl (Vitamin B-1(*) 100 Mg Tab (Or Equiv)) 100 mg QDAY PO 08/11/18 09:00 09/10/18 08:59 08/12/18 08:33 Trazodone HCl (Desyrel 50 Mg Tab (Or Equiv)) 150 mg QHS PO 08/11/18 21:00 09/10/18 20:59 08/11/18 20:36 Venlafaxine HCl (Effexor 37.5 Mg Tab (Or Equiv)) 37.5 mg ONCE ONCE PO 08/11/18 06:00 08/11/18 06:02 DC 08/11/18 07:38 Venlafaxine HCl (Effexor 75 Mg Tab (Or Equiv)) 75 mg QDAY PO 08/12/18 09:00 09/11/18 08:59 08/12/18 08:33 [facility] Assessment and Plan Kxtw-jr-Sfvz Encounter Date: Aug 12, 2018 Zivn-xg-Sext Encounter Time: 09:10 [facility] Plan: Admit to Unit, Necessary Precautions, Individual/Group Therapy, Admin/Titrate Meds, Educate Patient Tobacco Medications: Started (Nicotine replacement) Multpiple Antipsychotics Used: No Problems: (1) Alcohol use disorder, severe, in controlled environment Status: Chronic (2) Major depression, recurrent, chronic Status: Chronic Condition Continue Effexor and Trazodone at current dosages Discontinue CIWA Maintain precautions NEDA WICK NP Aug 12, 2018 09:16
[2018-08-12 14:50] VITALS: BP 108/68
[2018-08-12] MEDS: NICOTINE INH SYSTEM 10 MG/INH INH PRN ×2 (16:09→20:10)
[2018-08-12 19:55] VITALS: BP 93/74
[2018-08-12] MEDS: traZODone HCL 50 MG TAB PO SCH (21:21)
[2018-08-13 05:20] VITALS: BP 101/69
[2018-08-13] MEDS: VENLAFAXINE REG 75 MG TAB PO SCH (08:06)
[2018-08-13] MEDS: FOLIC ACID 1 MG TAB PO SCH (08:06)
[2018-08-13] MEDS: THIAMINE HCL 100 MG TAB PO SCH (08:06)
[2018-08-13] MEDS: MULTIVITAMINS PO SCH (08:06)
--- NOTE | 2018-08-13 08:57 | BHS Progress Note ---
BHS - Subjective Progress Notes Subjective "I didn't sleep well at all but I talked to my and there's no chance of working anything out, I've reasoned that out and I was a mean, nasty drunk." Anxiety "There is fear of the unknown." Depression 11/20, last thoughts of hurting self last night after talking w/ CIWA protocol dc'd , no tremor, denies NVD Discuss outpatient follow up, states doesn;t trust [facility] as they send him bills, discuss housing options upon discharge Suicidal Ideation: None Homicidal Ideation: None S - Objective Physical Exam Vital Signs Laboratory Tests Test 08/09/18 05:22 08/10/18 06:00 Range/Units White Blood Count 4.9 5.8 4.5-11.0 k/uL Red Blood Count 5.23 5.42 4.00-5.60 M/uL Hemoglobin 17.1 17.7 14.0-18.0 g/dL Hematocrit 51.0 52.5 42.0-52.0 % Mean Corpuscular Volume 97.7 96.8 80.0-96.0 fL Mean Corpuscular Hemoglobin 32.8 32.7 26.0-33.0 pg Mean Corpuscular Hemoglobin Concent 33.6 33.7 32.0-36.0 g/dL Red Cell Distribution Width 15.6 15.6 11.5-14.5 % Platelet Count 100 95 150-450 K/uL Mean Platelet Volume 9.0 9.4 7.2-11.1 fL Neutrophils (%) (Auto) 60.9 68.9 39.4-72.5 % Lymphocytes (%) (Auto) 29.8 20.8 17.6-49.6 % Monocytes (%) (Auto) 7.1 8.1 4.1-12.4 % Eosinophils (%) (Auto) 1.8 1.9 0.4-6.7 % Basophils (%) (Auto) 0.4 0.3 0.3-1.4 % Nucleated RBC Relative Count (auto) 0.1 0.0 /100WBC Neutrophils # (Auto) 3.0 4.0 2.0-7.4 K/uL Lymphocytes # (Auto) 1.5 1.2 1.3-3.6 K/uL Monocytes # (Auto) 0.3 0.5 0.3-1.0 K/uL Eosinophils # (Auto) 0.1 0.1 0.0-0.5 K/uL Basophils # (Auto) 0.0 0.0 0.0-0.1 K/uL Nucleated RBC Absolute Count (auto) 0.00 0.00 K/uL Sodium Level 133 134 137-145 mmol/L Potassium Level 3.9 4.0 3.5-5.0 mmol/L Chloride Level 99 99 98-107 mmol/L Carbon Dioxide Level 28 25 22-30 mmol/L Blood Urea Nitrogen 7 9 9-21 mg/dl Creatinine 0.60 0.70 0.66-1.25 mg/dl Glomerular Filtration Rate Calc > 60.0 > 60.0 Random Glucose 88 124 75-110 mg/dl Calcium Level 9.0 9.4 8.4-10.2 mg/dl Magnesium Level 1.8 1.8 1.7-2.2 mg/dl Total Bilirubin 1.5 0.2-1.3 mg/dl Aspartate Amino Transf (AST/SGOT) 39 0-35 U/L Alanine Aminotransferase (ALT/SGPT) 37 0-56 U/L Alkaline Phosphatase 67 0-126 U/L Total Protein 6.8 6.3-8.2 g/dl Albumin 3.9 3.5-5.0 g/dl Medications (Trade) Dose Ordered Sig/Vandana Route PRN Reason Start Time Stop Time Status Last Admin Dose Admin Al Hydrox/Mg Hydrox/Simethicone (Maalox(*) 30 ml Udcup (Or Equiv)) 30 ml Q4H PRN PO DYSPEPSIA 08/10/18 13:00 09/09/18 12:59 08/11/18 04:05 Diazepam (Valium(*) 10 Mg Tab (Or Equiv)) 10 mg HS ONCE PO 08/10/18 21:00 08/10/18 21:01 DC 08/10/18 20:33 Folic Acid (Folic Acid (*) 1 Mg Tab) 1 mg QDAY PO 08/11/18 09:00 09/10/18 08:59 08/13/18 08:06 Loperamide HCl (Imodium 2 Mg Cap (Or Equiv)) 4 mg ONCE ONCE PO 08/11/18 08:25 08/11/18 08:30 DC 08/11/18 08:33 Multivitamins (Thera-M Enhanced Tab (Or Equiv)) 1 each QDAY PO 08/11/18 09:00 09/10/18 08:59 08/13/18 08:06 Nicotine (Nicotrol Inhaler 10 Mg/Inh (Or Equiv)) 10 mg Q2H PRN INH NICOTINE REPLACEMENT 08/10/18 13:00 09/09/18 12:59 08/12/18 20:10 Thiamine HCl (Vitamin B-1(*) 100 Mg Tab (Or Equiv)) 100 mg QDAY PO 08/11/18 09:00 09/10/18 08:59 08/13/18 08:06 Trazodone HCl (Desyrel 50 Mg Tab (Or Equiv)) 150 mg QHS PO 08/11/18 21:00 09/10/18 20:59 08/12/18 21:21 Venlafaxine HCl (Effexor 37.5 Mg Tab (Or Equiv)) 37.5 mg ONCE ONCE PO 08/11/18 06:00 08/11/18 06:02 DC 08/11/18 07:38 Venlafaxine HCl (Effexor 75 Mg Tab (Or Equiv)) 75 mg QDAY PO 08/12/18 09:00 09/11/18 08:59 08/13/18 08:06 Muscle Strength and Tone: WNL Gait and Station: Steady [facility] Medications Reviewed: Side Effects, Benefits of Medication, Risks Allergies Reviewed: Yes Mental Status Exam General Appearance: Casual, Cooperative, Unkept, Psychomotor Retardation Speech: Clear, Spontaneous, Normal Rate, Normal Rhythm, Normal Volume, Normal Tone Mood: Dysthmic/Depressed (rates depression 6/10) Affect: Sad, Neutral Thought Process: Organized, Logical, Goal Directed; No Loose Associations Thought Content: Suicidal Ideation; No Homicidal Ideation, No Delusions Sensorium: Clear Cognition: Alert & Oriented-Person, Alert & Oriented-Place, Alert & Oriented- Time, Pjcme-Knxxeuti-Mepaulwbj Memory: Immediate, Recent, Remote Intelligence: Average Insight Judgment: Fair; No Good Lab Vital Signs Date Time Temp Pulse Resp B/P (MAP) Pulse Ox O2 Delivery O2 Flow Rate FiO2 08/13/18 05:20 98.1 64 101/69 (80) 94 Room Air 08/12/18 14:50 16 Allergies Coded Allergies naproxen (Verified Allergy, Intermediate, HVES, 05/19/18) [facility] Assessment and Plan [id number] Encounter Date: Aug 13, 2018 Vwrg-ed-Cbtb Encounter Time: 00:47 [facility] Plan: Admit to Unit, Necessary Precautions, Individual/Group Therapy, Admin/Titrate Meds, Educate Patient Tobacco Medications: Started (Nicotine replacement) Multpiple Antipsychotics Used: No Problems: (1) Alcohol use disorder, severe, in controlled environment Status: Chronic (2) Major depression, recurrent, chronic Status: Chronic Condition Continue Venlafaxine 75mg po every am targeting depression/anxiety Continue Trazodone 150mg po every pm targeting depression/sleep Discuss outpatient care, AA and [facility] [place] Treatment team 08/14/18 with son planning on attending NEDA WICK NP Aug 13, 2018 08:57
[2018-08-13 10:33] LABS: PLATELET COUNT, AUTOMATED 98 K/uL (150-450)
[2018-08-13] MEDS: NICOTINE INH SYSTEM 10 MG/INH INH PRN ×2 (11:04→19:08)
[2018-08-13 12:48] VITALS: BP 98/68
[2018-08-13] MEDS ORDERED: TRAZ150T8 PO (14:34)
[2018-08-13 19:09] VITALS: BP 108/58
[2018-08-13] MEDS: traZODone HCL 50 MG TAB PO SCH (20:18)
[2018-08-14 02:37] VITALS: BP 116/85
[2018-08-14] MEDS: THIAMINE HCL 100 MG TAB PO SCH (08:16)
[2018-08-14] MEDS: VENLAFAXINE REG 75 MG TAB PO SCH (08:16)
[2018-08-14] MEDS: FOLIC ACID 1 MG TAB PO SCH (08:16)
[2018-08-14] MEDS: MULTIVITAMINS PO SCH (08:16)
[2018-08-14] MEDS ORDERED: VENL75CA58 PO (10:43)
[2018-08-14] MEDS ORDERED: NICOTROL CARTRIDGE PO (10:44)
--- NOTE | 2018-08-14 11:21 | BHS Discharge Summary ---
[facility] Discharge Summary Stuo-ot-Dmxe Encounter Date: Aug 14, 2018 Urks-en-Wznh Encounter Time: 08:30 Reason-Hosp/Final Diag (DSM-V): (1) Alcohol use disorder, severe, in controlled environment Status: Chronic Hospital Course & Plan: Pt was admitted for alcohol detox, 3 weeks after having relapsed to 2 pints per day. He said he had been stressed over family stressors-- his son has been abusing heroin and his ex- with whom he had been living, was enabling the son. Pt moved out into his own apartment about 3 weeks ago because of stressors, and started drinking again. Pt does have hx of prior detox admissions here, and after his last admission here he did go to [facility] and stayed 2 and a half months, after which he was attending AA meetings. 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 His BAL on admission was 390. He was admitted on a voluntary basis and detoxed with valium using the CIWA protocol. Detox was uncomplicated. On admission he did have some suicidal ideation, but never any plan or intent, and after his first hospital day, he denied SI thereafter. His antidepressant had previously been prozac but he felt it didn't help as much with the anxiety component, so he was started instead on venlafaxine up to 75 mg per day which was well tolerated and he felt beneficial. He also stayed on his trazodone 150 mg at bedtime. He was pleasant and cooperative throughout his stay, participating in all treatment modalities. He spoke with ex- and with his son by phone and said they had patched things up reasonably well. Son is a contractor and will be able to get the pt some work, also son said the pt can live with him. Pt was offered transfer to rehab but declined, he said he will follow up with AA and with [facility]. There were no studies pending at time of discharge. (2) Major depression, recurrent, chronic Status: Chronic Physical Exam Latest Vital Signs Vital Signs 08/14/18 02:37 Temp 98.5 Pulse 70 Resp 15 B/P (MAP) 116/85 (95) Pulse Ox 93 O2 Delivery Room Air Mental Status Exam General Appearance: Casual, Well Groomed, Good Eye Contact, Cooperative, Polit e, Good Interaction, Psychomotor Retardation Speech: Clear, Spontaneous, Normal Rate, Normal Rhythm, Normal Volume, Normal Tone Mood: Euthymic Affect: Full and Appropriate Thought Process: Organized, Logical, Goal Directed Thought Content: No Suicidal Ideation, No Homicidal Ideation, No Delusions, No Auditory Halllucinations, No Visual Hallucinations, No Thought Broadcasting, No Ideas of Reference, No Obsessions, No Compulsions, No Other Sensorium: Clear Cognition: Alert & Oriented-Person, Alert & Oriented-Place, Alert & Oriented- Time, Hnbsz-Wyddirxb-Yztyqfaae Memory: Immediate, Recent, Remote Intelligence: Average Insight Judgment: Good Departure Result Diagram: 08/13/18 1026 08/13/18 1026 Item Value Date Time White Blood Count 4.6 k/uL 08/13/18 1026 Red Blood Count 5.08 M/uL 08/13/18 1026 Hemoglobin 16.5 g/dL 08/13/18 1026 Hematocrit 50.0 % 08/13/18 1026 Mean Corpuscular Volume 98.4 fL H 08/13/18 1026 Mean Corpuscular Hemoglobin 32.5 pg 08/13/18 1026 Mean Corpuscular Hemoglobin Concent 33.1 g/dL 08/13/18 1026 Red Cell Distribution Width 15.3 % H 08/13/18 1026 Platelet Count 98 K/uL L 08/13/18 1026 Sodium Level 136 mmol/L L 08/13/18 1026 Potassium Level 4.9 mmol/L 08/13/18 1026 Chloride Level 100 mmol/L 08/13/18 1026 Carbon Dioxide Level 30 mmol/L 08/13/18 1026 Blood Urea Nitrogen 15 mg/dl 08/13/18 1026 Creatinine 1.00 mg/dl 08/13/18 1026 Glomerular Filtration Rate Calc > 60.0 08/13/18 1026 Random Glucose 76 mg/dl 08/13/18 1026 Calcium Level 9.4 mg/dl 08/13/18 1026 Magnesium Level 1.8 mg/dl 08/10/18 0600 Total Bilirubin 0.4 mg/dl 08/13/18 1026 Aspartate Amino Transf (AST/SGOT) 144 U/L H 08/13/18 1026 Alanine Aminotransferase (ALT/SGPT) 157 U/L H 08/13/18 1026 Alkaline Phosphatase 59 U/L 08/13/18 1026 Total Protein 6.3 g/dl 08/13/18 1026 Albumin 3.6 g/dl 08/13/18 1026 Thyroid Stimulating Hormone (TSH) 0.48 uIU/ml 08/07/18 1557 Urine Color Yellow 08/07/18 1720 Urine Clarity Clear 08/07/18 1720 Urine pH 7.0 pH 08/07/18 1720 Urine Specific [place] 1.004 08/07/18 1720 Urine Protein Negative mg/dL 08/07/18 1720 Urine Glucose (UA) Negative mg/dL 08/07/18 1720 Urine Ketones Negative mg/dL 08/07/18 1720 Urine Blood Negative 08/07/18 1720 Urine Nitrite Negative 08/07/18 1720 Urine Bilirubin Negative 08/07/18 1720 Urine Urobilinogen Negative mg/dL 08/07/18 1720 Urine Leukocyte Esterase Negative 08/07/18 1720 Urine RBC None /HPF 08/07/18 1720 Urine WBC <1 /HPF 08/07/18 1720 Urine Squamous Epithelial Cells None /LPF 08/07/18 1720 Urine Bacteria Negative /HPF 08/07/18 1720 Urine Mucus None /HPF 08/07/18 1720 Salicylates Level < 10 mg/L 08/07/18 1557 Salicylate Last Dose Date unknown 08/07/18 1557 Urine Opiates Screen Negative 08/07/18 1720 Acetaminophen Level < 10 ug/ml 08/07/18 1557 Urine Barbiturates Screen Negative 08/07/18 1720 Ur Tricyclic Antidepressants Screen Negative 08/07/18 1720 Urine Phencyclidine Screen Negative 08/07/18 1720 Urine Amphetamines Screen Negative 08/07/18 1720 Urine Benzodiazepines Screen Negative 08/07/18 1720 Urine Cocaine Screen Negative 08/07/18 1720 Urine Cannabinoids Screen Positive 08/07/18 1720 Serum Alcohol 390 mg/dl *H 08/07/18 1557 Condition: Improved Discharge to: Home Discharge Instructions Home Meds Reported Medications [Nicotrol Cartridge] No Conflict Check, 1 EA PO PRN PRN for NICOTINE REPLACEMENT 08/14/18 Venlafaxine Hcl (EFFEXOR XR) 75 Mg Cap.er.24h, 75 MG PO QAM 08/14/18 Trazodone Hcl (TRAZODONE HCL) 150 Mg Tablet, 150 MG PO QHS PRN for SLEEP 08/13/18 Nicotine (NICOTROL) 10 Mg/Inh Ctr, 10 MG INH PRN PRN for NICOTINE REPLACEMENT 11/26/17 Discontinued Reported Medications Multivits,Ca,Minerals/Iron/Fa (THERA-M TABLET) 1 Each Tablet, 1 EACH PO DAILY 11/26/17 Thiamine Hcl (THIAMINE HCL) 100 Mg Tablet, 100 MG PO DAILY 11/26/17 Folic Acid (FOLIC ACID) 1 Mg Tablet, 1 MG PO QDAY, TAB 11/26/17 Fluoxetine Hcl (PROZAC) 20 Mg Capsule, 60 MG PO QDAY, CAPSULE 03/19/16 Trazodone Hcl (TRAZODONE HCL) 100 Mg Tablet, 75-150 PO QHS for PRN, TAB 03/15/16 Multpiple Antipsychotics Used: No Diet: Regular Activity: As Tolerated Special Instructions: Discharge home. Abstain from alcohol and all illicit substances. Follow-up with outpatient therapy. Follow up with outpatient provider for medication management. Join AA. Obtain an AA Sponsor & utilize them. Call Crisis Line should symptoms return. JOSEMANUEL HAGER MD Aug 14, 2018 11:20
== END 2018-08-14 16:20 | disposition home or self-care (01) | DRG 897 ==
LOC: BHS 12:00
PROVIDERS: ADMIT Psychiatry & Neurology Psychiatry; ATTEND Psychiatry & Neurology Psychiatry
DX: F10.230 Alcohol dependence with withdrawal, uncomplicated (principal); F33.9 Major depressive disorder, recurrent, unspecified; Z63.72 Alcoholism and drug addiction in family; Z56.0 Unemployment, unspecified
CPT/HCPCS: 36415; 82040; 82247; 82310; 82374; 82435; 82565; 82947; 84075; 84132; 84155; 84295; 84450; 84460; 84520; 85025

== ENCOUNTER 2018-08-31 23:26 | Emergency (ER) | payer SELFPAY ==
[2018-08-08 09:15] VITALS: Wt 52.2 kg
[~2018-08-31 23:26] MED LIST changes: -ALBU8.5H IH; -BACOUD TP; -DILT240T PO; -IPRA4AER IH; -RIVA20TA PO; -VENL150C61 PO
[2018-08-31] MEDS ORDERED: THIAMINE HCL 200 MG/2 ML INJ IVP ONE (23:50)
[2018-08-31] MEDS ORDERED: NS(*) 0.9% 1000 ML BAG 1,000 ML IV ONE (23:50)
[2018-09-01] MEDS ORDERED: THIAMINE HCL 200 MG/2 ML INJ ONE (00:01)
[2018-09-01] MEDS ORDERED: NICOTINE 21 MG/24 HR PATCH TD ONE ×2 (00:10→00:23)
--- NOTE | 2018-09-01 00:10 | ER Report ---
History and Physical Time Seen By MD: 00:45 Hx. of Stated Complaint: PT PRESENTS WANTING TO DETOX. PT WORRIED ABOUT HIS HEART. HPI/ROS CHIEF COMPLAINT: Wants alcohol detox, suicidal, palpitations HISTORY OF PRESENT ILLNESS: 58-year-old male history of alcohol dependence has attempted detox multiple times in the past, currently lives in a camper, presents because he states he cannot stop drinking and when he drinks this much he is afraid he is going to drink himself to . Patient also states that he developed some heart fluttering today and this happens when he drinks too much. He has never been seen for this according to him. He states it lasted about 45 minutes and started at 6 PM. He denies chest pain or shortness of breath during that. He has had a fifth of tequila today and has had this daily. He states that if he could find a shock gun he would shoot himself. He denies shortness of breath, abdominal pain, vomiting, headaches, new weakness, fevers, chills. REVIEW OF SYSTEMS: Constitutional: No fever, no chills. Eyes: no blurred vision ENT: No sore throat. Cardiovascular: above Respiratory: No cough, no shortness of breath. Gastrointestinal: No abdominal pain, no vomiting. Genitourinary: no dysuria Musculoskeletal: No back pain. Skin: No rashes. Neurological: No headache. Remainder of the 14 system rev: Yes Allergies: Coded Allergies: naproxen (Verified Allergy, Intermediate, HVES, 08/31/18) Home Meds Reported Medications Venlafaxine Hcl (EFFEXOR XR) 75 Mg Cap.er.24h, 75 MG PO QAM 08/14/18 Trazodone Hcl (TRAZODONE HCL) 150 Mg Tablet, 150 MG PO QHS PRN for SLEEP 08/13/18 Discontinued Reported Medications [Nicotrol Cartridge] No Conflict Check, 1 EA PO PRN PRN for NICOTINE REPLACEMENT 08/14/18 Nicotine (NICOTROL) 10 Mg/Inh Ctr, 10 MG INH PRN PRN for NICOTINE REPLACEMENT 11/26/17 Reviewed Nurses Notes: Yes Old Medical Records Reviewed: Yes Hx Smoking: Yes Smoking Status: Current: Every Day Smoker Exposure to Second Hand Smoke?: Yes Hx Substance Use Disorder: Yes Hx Alcohol Use: Yes Constitutional Vital Sign - Last 24 Hours 08/31/18 08/31/18 08/31/18 08/31/18 23:27 23:33 23:41 23:56 Temp 98.1 Pulse 93 100 90 Resp 18 11 18 B/P (MAP) 135/86 135/86 (102) Pulse Ox 86 92 O2 Delivery Room Air 09/01/18 09/01/18 09/01/18 09/01/18 00:00 00:11 00:26 00:35 Pulse 85 90 88 Resp 17 18 15 B/P (MAP) 124/86 (99) Pulse Ox 93 09/01/18 00:56 O2 Flow Rate 2.0 Physical Exam General Appearance: The patient is alert, has no immediate need for airway protection and no signs of toxicity. slurred speech c/w significant intoxication Eyes: Pupils equal and round no pallor or injection. No nystagmus ENT, Mouth: Mucous membranes are moist. Respiratory: There are no retractions, lungs are clear to auscultation. Cardiovascular: borderline tachycardia, no m/r/g Gastrointestinal: Abdomen is soft and non tender, no masses, bowel sounds normal. Neurological: eyes closed, opens to verbal, follows commands with dysmetria but no tremor Skin: Warm and dry, no rashes. Musculoskeletal: Extremities are nontender, nonswollen and have full range of motion. DIFFERENTIAL DIAGNOSIS: After history and physical exam differential diagnosis was considered for etoh intoxication, drug intox, withdrawal, suicide attempt, metabolic/electrolyte abnormality or other emergent etiology Medical Decision Making Data Points Result Diagram: 09/01/18 0010 09/01/18 0010 Laboratory Hematology Test 09/01/18 00:10 09/01/18 00:44 Red Blood Count 5.68 M/uL (4.00-5.60) Mean Corpuscular Volume 96.8 fL (80.0-96.0) Mean Corpuscular Hemoglobin 33.1 pg (26.0-33.0) Mean Corpuscular Hemoglobin Concent 34.2 g/dL (32.0-36.0) Red Cell Distribution Width 16.0 % (11.5-14.5) Mean Platelet Volume 8.1 fL (7.2-11.1) Neutrophils (%) (Auto) 43.8 % (39.4-72.5) Lymphocytes (%) (Auto) 42.8 % (17.6-49.6) Monocytes (%) (Auto) 11.5 % (4.1-12.4) Eosinophils (%) (Auto) 1.2 % (0.4-6.7) Basophils (%) (Auto) 0.7 % (0.3-1.4) Nucleated RBC Relative Count (auto) 0.2 /100WBC Neutrophils # (Auto) 2.4 K/uL (2.0-7.4) Lymphocytes # (Auto) 2.4 K/uL (1.3-3.6) Monocytes # (Auto) 0.6 K/uL (0.3-1.0) Eosinophils # (Auto) 0.1 K/uL (0.0-0.5) Basophils # (Auto) 0.0 K/uL (0.0-0.1) Nucleated RBC Absolute Count (auto) 0.01 K/uL Sodium Level 139 mmol/L (137-145) Potassium Level 3.2 mmol/L (3.5-5.0) Chloride Level 97 mmol/L (98-107) Carbon Dioxide Level 28 mmol/L (22-30) Blood Urea Nitrogen 9 mg/dl (9-21) Creatinine 0.90 mg/dl (0.66-1.25) Glomerular Filtration Rate Calc > 60.0 Random Glucose 118 mg/dl (75-110) Calcium Level 8.9 mg/dl (8.4-10.2) Magnesium Level 1.7 mg/dl (1.7-2.2) Total Bilirubin 0.8 mg/dl (0.2-1.3) Aspartate Amino Transf (AST/SGOT) 36 U/L (0-35) Alanine Aminotransferase (ALT/SGPT) 34 U/L (0-56) Alkaline Phosphatase 73 U/L (0-126) Troponin I < 0.012 ng/ml Total Protein 7.8 g/dl (6.3-8.2) Albumin 4.5 g/dl (3.5-5.0) Salicylates Level < 10 mg/L Salicylate Last Dose Date unk Acetaminophen Level < 10 ug/ml Serum Alcohol 296 mg/dl Chemistry Test 09/01/18 00:10 09/01/18 00:44 White Blood Count 5.6 k/uL (4.5-11.0) Red Blood Count 5.68 M/uL (4.00-5.60) Hemoglobin 18.8 g/dL (14.0-18.0) Hematocrit 55.0 % (42.0-52.0) Mean Corpuscular Volume 96.8 fL (80.0-96.0) Mean Corpuscular Hemoglobin 33.1 pg (26.0-33.0) Mean Corpuscular Hemoglobin Concent 34.2 g/dL (32.0-36.0) Red Cell Distribution Width 16.0 % (11.5-14.5) Platelet Count 176 K/uL (150-450) Mean Platelet Volume 8.1 fL (7.2-11.1) Neutrophils (%) (Auto) 43.8 % (39.4-72.5) Lymphocytes (%) (Auto) 42.8 % (17.6-49.6) Monocytes (%) (Auto) 11.5 % (4.1-12.4) Eosinophils (%) (Auto) 1.2 % (0.4-6.7) Basophils (%) (Auto) 0.7 % (0.3-1.4) Nucleated RBC Relative Count (auto) 0.2 /100WBC Neutrophils # (Auto) 2.4 K/uL (2.0-7.4) Lymphocytes # (Auto) 2.4 K/uL (1.3-3.6) Monocytes # (Auto) 0.6 K/uL (0.3-1.0) Eosinophils # (Auto) 0.1 K/uL (0.0-0.5) Basophils # (Auto) 0.0 K/uL (0.0-0.1) Nucleated RBC Absolute Count (auto) 0.01 K/uL Glomerular Filtration Rate Calc > 60.0 Calcium Level 8.9 mg/dl (8.4-10.2) Magnesium Level 1.7 mg/dl (1.7-2.2) Total Bilirubin 0.8 mg/dl (0.2-1.3) Aspartate Amino Transf (AST/SGOT) 36 U/L (0-35) Alanine Aminotransferase (ALT/SGPT) 34 U/L (0-56) Alkaline Phosphatase 73 U/L (0-126) Troponin I < 0.012 ng/ml Total Protein 7.8 g/dl (6.3-8.2) Albumin 4.5 g/dl (3.5-5.0) Salicylates Level < 10 mg/L Salicylate Last Dose Date unk Acetaminophen Level < 10 ug/ml Serum Alcohol 296 mg/dl Toxicology Test 09/01/18 00:10 09/01/18 00:44 Salicylates Level < 10 mg/L Salicylate Last Dose Date unk Acetaminophen Level < 10 ug/ml Serum Alcohol 296 mg/dl Urinalysis Test 09/01/18 00:44 EKG/Imaging EKG Interpretation 12 lead EKG: Rhythm: normal sinus rhythm [place]: normal QRS: normal ST segments: normal NSR with prolonged QT Monitor Interpretation: Normal Sinus Rhythm ED Course/Re-evaluation ED Course 58-year-old male presents with alcohol intoxication, complains of palpitations and admits to suicidality. Symptoms of palpitations have not recurred and were gone 3 hours prior to arrival. Considered PE though patient without shortness breath syncope or tachycardia. Considered atrial fibrillation or flutter which is likely given the amount of drinking. He does not have signs of that here. Considered ACS and troponin is negative. Patient is most appropriate for admission to behavioral health for suicidality and request for detox. We will monitor need for benzos per [facility] protocol. Decision to Disposition Date: Sep 01, 2018 Decision to Disposition Time: 00:11 Depart Departure Latest Vital Signs Vital Signs Date Time Temp Pulse Resp B/P (MAP) Pulse Ox O2 Delivery O2 Flow Rate FiO2 09/01/18 00:56 2.0 09/01/18 00:35 88 15 93 09/01/18 00:00 124/86 (99) 08/31/18 23:27 98.1 Room Air Impression: Primary Impression: Alcohol intoxication in active alcoholic Additional Impression: Suicidal ideation Condition: Condition Unchanged Disposition: HOME OR SELF-CARE Problem Qualifiers Primary Impression: Alcohol intoxication in active alcoholic Complication of substance-induced condition: uncomplicated Qualified Codes: F10.220 - Alcohol dependence with intoxication, uncomplicated KENYON MOBLEY MD Sep 01, 2018 00:10
[2018-09-01] MEDS ORDERED: ONDANSETRON 4 MG/2 ML VIAL IVP ONE (00:20)
[2018-09-01] MEDS ORDERED: ONDANSETRON 4 MG/2 ML VIAL ONE (00:23)
[2018-09-01 00:24] LABS: PLATELET COUNT, AUTOMATED 176 K/uL (150-450)
[2018-09-01] MEDS ORDERED: MAGNESIUM SUL/D5W* 1 GM/100 ML 100 ML IVPB ONE (00:50)
--- NOTE | 2018-09-01 00:56 | EKG ---
[place] [facility] [place] NAME: RACQUEL SMALLS : [id number] MR: [id number] V: [id number] EXAM DATE: ORDERING PHYSICIAN: KENYON MOBLEY TECHNOLOGIST: JORGE Test Reason : PALPITATIONS Blood Pressure : / mmHG Vent. Rate : 078 BPM Atrial Rate : 078 BPM P-R Int : 130 ms QRS Dur : 072 ms QT Int : 478 ms P-R-T Axes : 077 093 071 degrees QTc Int : 544 ms Normal sinus rhythm with sinus arrhythmia Prolonged QT Diffuse, non-specific T flattening When compared with ECG of 22-NOV-2017 20:38, T wave amplitude has decreased in Lateral leads QT has lengthened Confirmed by JILL HUSAIN ([id number]) on 09/01/2018 6:42:38 AM Referred By: Confirmed By:JILL HUSAIN
[2018-09-01] MEDS ORDERED: MAGNESIUM SUL/D5W* 1 GM/100 ML 100 ML ONE (01:01)
[2018-09-01] MEDS ORDERED: DIAZEPAM 10 MG TAB PO ONE (03:00)
[2018-09-01 06:41] VITALS: BP 108/86
== END 2018-09-01 06:50 ==
LOC: ER 23:35
DX: F10.220 Alcohol dependence with intoxication, uncomplicated (principal); R45.851 Suicidal ideations
CPT/HCPCS: 80305; 80320; 80329; 81001; 83735; 84484; 85025; 93005; 96361; 96365; 96375; 99284; J2405; J3411; J3475; J7030; 82040; 82247; 82310; 82374; 82435; 82565; 82947; 84075; 84132; 84155; 84295; 84450; 84460; 84520

== ENCOUNTER → 2018-08-31 | Outpatient (CLI) | payer SELFPAY ==
[2018-08-08 09:15] VITALS: BMI 17.4
[~2018-08-31] MED LIST changes: +ALBU8.5H IH; +BACOUD TP; +DILT240T PO; +IPRA4AER IH; +NICOTROL CARTRIDGE PO; +RIVA20TA PO; +TRAZ150T8 PO; +VENL150C61 PO; +VENL75CA58 PO
== END ==
LOC: AMB 23:18
PROVIDERS: ATTEND Nurse Practitioner
DX: F10.220 Alcohol dependence with intoxication, uncomplicated (principal)
CPT/HCPCS: A0425; A0427

== ENCOUNTER 2018-09-01 06:37 | Inpatient (IN) | payer SELFPAY ==
[2018-08-08 09:15] VITALS: Ht 167.6 cm; Wt 49.9 kg
[~2018-09-01] VITALS: Ht 167.6 cm; Wt 49.9 kg
[2018-09-01 06:55] VITALS: BP 136/80
[2018-09-01] MEDS ORDERED: NICOTINE CARTRIDGE 1 EA PO PRN (07:35)
[2018-09-01] MEDS ORDERED: MAG HYD/AL HYD/SIMETH 30ML UDC PO PRN (07:35)
[2018-09-01] MEDS: THIAMINE HCL 100 MG TAB PO SCH (08:35)
[2018-09-01] MEDS: MULTIVITAMINS PO SCH (08:35)
[2018-09-01] MEDS: FOLIC ACID 1 MG TAB PO SCH (08:36)
[2018-09-01] MEDS: DIAZEPAM 10 MG TAB PO PRN ×2 (08:36→17:33)
[2018-09-01 11:00] VITALS: BP 142/90
--- NOTE | 2018-09-01 11:14 | RADIOLOGY IMAGING REPORT ---
[place] [facility] [place] NAME: Oscar Milian : 1960 MR: [id number] V: [id number] EXAM DATE: ORDERING PHYSICIAN: JOSEMANUEL HAGER TECHNOLOGIST: Location: [facility] - [place] Patient: Oscar Milian : 1960 Visit/Account:[id number] Date of Sevice: 09/01/2018 Chest with lateral, two views. HISTORY: Possible pneumonia, cough. COMPARISON: 07/19/2012. Oxygen tubing projects on the neck and right upper chest. The heart and mediastinum are unremarkable . Pulmonary vessels are unremarkable. The lungs are voluminous. The right lung is slightly larger than the left. Interstitial markings are minimally thickened bilaterally, unchanged. The pleural truong rfaces are unremarkable. No pneumothorax. No acute bony abnormalities. IMPRESSION: Voluminous lungs. Otherwise no evidence of acute cardiopulmonary disease. Report Dictated By: Joni Baxter MD at 09/01/2018 11:04 AM Report E-Signed By: Joni Baxter MD at 09/01/2018 11:10 AM WSN:HAILE
--- NOTE | 2018-09-01 13:16 | HISTORY AND PHYSICAL ---
DATE OF ADMISSION: September 01, 2018 ATTENDING PHYSICIAN Loyda Galeana MD The patient was interviewed on 09/01/2018 at 10 a.m. for this history and physical. CHIEF COMPLAINT "I need to stop drinking or I am going to shoot myself". HISTORY OF PRESENT ILLNESS This is the 5th inpatient admission for this 58-year-old male who has a history of alcohol use disorder as well as a history of depression and who is here on a voluntary basis. He presented to the emergency room complaining of wanting alcohol detox and also said that he was having suicidal ideation with a plan to "find a gun and shoot myself". He says he does not own any guns himself. The patient was intoxicated in the emergency room with a blood alcohol of 296. He was cooperative with the ER work up and was admitted voluntarily to psychiatry. Today, he is seen in his room because he is feeling too ill to cooperate with much of an interview. He does acknowledge that he was feeling suicidal yesterday, but denies any current suicidal ideation today. He says he has been drinking a 5th of tequila per day for the past one month and that he relapsed immediately upon discharge from [facility] one month ago. He has been living alone in a trailer which is located on his ex-'s property. PAST PSYCHIATRIC HISTORY This is his 5th [facility] admission for detox. He did have a 2 month stay in [place] at [facility] for rehab during the summer of 2017 which he says was helpful. He has had outpatient treatment at [facility]. He has never had a prior suicide attempt. He has been taking Prozac and trazodone for depression and insomnia. FAMILY PSYCHIATRIC HISTORY Father alcoholism, son heroin addiction. PAST MEDICAL HISTORY Negative SOCIAL HISTORY Born in [place] and raised in [place]. He went to school in [place] and dropped out in the 9th grade. 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 He was for 33 years and they 8 years ago. He is currently living in a trailer that is located on her property. He was frustrated with his ex- because he feels that she enables their son who has a heroin addiction. 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 SUBSTANCE ABUSE HISTORY He began drinking as a teenager. He typically drinks a 5th of tequila per day. He also uses cannabis. He smokes a pack of cigarettes per day. PHYSICAL EXAMINATION Please see the emergency room physician's report. VITAL SIGNS: Pulse is 87, respiratory rate is 11, blood pressure 108/86, pulse ox is 88% on room air. LABORATORY DATA WBC 5.6, RBC high 5.68, hemoglobin high 18.8, hematocrit high 55, MCV high 96.8, MCH high 33.1, RDW high at 16, the remainder of his CBC is normal. Chemistry panel potassium low at 3.2, chloride low at 97, random glucose high at 118, AST high at 36, ALT normal at 34, the remainder of the chemistry panel is normal. His urinalysis is normal. His tox screen is positive for cannabinoids. Serum alcohol is 296. MENTAL STATUS EXAM GENERAL APPEARANCE, BEHAVIOR AND ATTITUDE: The patient was disheveled, lying in bed wearing oxygen. He is very sleepy, but does arouse to voice. He was able to answer a few questions, but kept falling asleep. SPEECH: Slow. MOOD: He did acknowledge a depressed mood AFFECT: Depressed and also ill appearing. THOUGHT PROCESSES: Seemed to be logical and goal-directed. THOUGHT CONTENT: He denied any current suicidal ideation, but acknowledge suicidal ideation yesterday. He denied auditory and visual hallucinations. He denies tactile hallucinations. He denies homicidal idea. There were no delusions. SENSORIUM: He was arousable, but not really alert. COGNITION: Alert and oriented to person, place, time, and situation. MEMORY: Was not assessed. INTELLIGENCE: Average, based on interview. INSIGHT AND JUDGMENT: Fair. ASSESSMENT 1. Alcohol use disorder, severe. 2. Alcohol withdrawal. 3. Persistent depressive disorder. PLAN 1. He was admitted to [facility] and being maintained on suicide precautions. 2. We will detox with Valium using the CIWA protocol. 3. We have ordered a chest x-ray and a medicine consult because of his low O2 sats. 4. He will attend individual and group therapies when he is feeling better. 5. We hope to arrange a rehab program for him. 6. His estimated length of stay is 3 to 5 days. [facility]
[2018-09-01] MEDS: predniSONE 20 MG TAB PO SCH (15:00)
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
[2018-09-01 16:00] VITALS: BP 131/93
[2018-09-01] MEDS: ALBUTEROL/IPRATROPIUM 3 ML NEB NEB SCH (17:25)
[2018-09-01] MEDS: BACITRACIN OINT 15 GM TUBE TP SCH (21:00)
[2018-09-01 23:43] VITALS: BP 133/96
[2018-09-02] MEDS: DIAZEPAM 10 MG TAB PO PRN ×3 (00:50→20:39)
[2018-09-02] MEDS: BACITRACIN OINT 15 GM TUBE TP SCH ×2 (01:44→08:44)
[2018-09-02] MEDS: ALBUTEROL/IPRATROPIUM 3 ML NEB NEB SCH (06:05)
[2018-09-02] MEDS ORDERED: ALBUTEROL 2.5 MG/3 ML NEB NEB PRN (07:55)
[2018-09-02] MEDS: MULTIVITAMINS PO SCH (08:42)
[2018-09-02] MEDS: THIAMINE HCL 100 MG TAB PO SCH (08:42)
[2018-09-02] MEDS: VENLAFAXINE XR 75 MG CAPCR PO SCH (08:42)
[2018-09-02] MEDS: FOLIC ACID 1 MG TAB PO SCH (08:42)
[2018-09-02] MEDS: predniSONE 20 MG TAB PO SCH ×2 (08:43→09:00)
[2018-09-02 08:45] VITALS: BP 147/96
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
--- NOTE | 2018-09-02 10:41 | BHS Progress Note ---
BHS - Subjective Progress Notes Subjective "For some reason my withdrawal is a little rough this time. I think I can stay sober if I can stay away from my oldest son. I don't understand why I have to stay in the camper and he's running the house," Reporting diarrhea, tremor, denies nausea/vomiting Denies suicidal ideation "Just a feeling of hopelessness." Depression /, anxiety "at least a 7" Anger "Only when I try to talk to my family" Was sober 3 days after last discharge, drink of choice tequila, drinking 1 - 1 1/2 pints per day "I avoid hangovers so I just drink again." Declines option of residential program "not at this time" Suicidal Ideation: None Homicidal Ideation: None BHS - Objective Physical Exam Vital Signs Medications (Trade) Dose Ordered Sig/Vandana Route PRN Reason Start Time Stop Time Status Last Admin Dose Admin Albuterol/ Ipratropium (Duoneb Soln(*) 3 ml Neb (Or Equiv)) 3 ml TIDR NEB 09/01/18 18:00 09/02/18 07:54 DC 09/02/18 06:05 Bacitracin (Bacitracin Oint(*) 15 Gm Tube) APPLY TO AFFECTED AREAS BID TP 09/01/18 21:00 09/15/18 20:59 09/02/18 08:44 Diazepam (Valium(*) 10 Mg Tab (Or Equiv)) 10-20 MG PRN PRN PO FOLLOW CIWA PROTOCOL 09/01/18 07:35 09/15/18 07:34 09/02/18 00:50 Folic Acid (Folic Acid (*) 1 Mg Tab) 1 mg QDAY PO 09/01/18 09:00 10/01/18 08:59 09/02/18 08:42 Multivitamins (Thera-M Enhanced Tab (Or Equiv)) 1 each QDAY PO 09/01/18 09:00 10/01/18 08:59 09/02/18 08:42 Prednisone (predniSONE (*) 20 MG TAB) 40 mg QDAY PO 09/01/18 15:00 10/01/18 14:59 09/02/18 08:43 Thiamine HCl (Vitamin B-1(*) 100 Mg Tab (Or Equiv)) 100 mg QDAY PO 09/01/18 09:00 10/01/18 08:59 09/02/18 08:42 Venlafaxine HCl (Effexor-Xr 75 Mg Capcr (Or Equiv)) 75 mg QDAY PO 09/02/18 09:00 10/02/18 08:59 09/02/18 08:42 Deferred Allergies Coded Allergies naproxen (Verified Allergy, Intermediate, HVES, 08/31/18) Muscle Strength and Tone: WNL Gait and Station: Unsteady [facility] Medications Reviewed: Side Effects, Benefits of Medication, Risks Allergies Reviewed: Yes Mental Status Exam General Appearance: Casual; No Good Eye Contact; Cooperative, Unkept, Psychomotor Agitation (consistent with alcohol withdrawal), Other (poor eye c ontact) Speech: Clear, Spontaneous, Normal Rate, Normal Rhythm, Normal Volume, Normal Tone Mood: Dysthmic/Depressed Affect: Calm, Neutral Thought Process: Organized, Logical Thought Content: No Suicidal Ideation, No Homicidal Ideation, No Delusions, No Auditory Halllucinations, No Visual Hallucinations, No Thought Broadcasting, No Ideas of Reference, No Obsessions Sensorium: Clear Cognition: Alert & Oriented-Person, Alert & Oriented-Place, Alert & Oriented- Time, Ecckg-Vhqqnhfp-Ruozklrlm Memory: Immediate, Recent, Remote Intelligence: Average Insight Judgment: Poor Microbiology relapse with alcohol/ BHS Assessment and Plan [id number] Encounter Date: Sep 02, 2018 [id number] Encounter Time: 10:37 [facility] Plan: Admit to Unit, Necessary Precautions, Admin/Titrate Meds, Educate Patient Tobacco Medications: Started Multpiple Antipsychotics Used: No Problems: (1) Major depression, recurrent, chronic Status: Chronic (2) Alcohol use disorder, severe, in controlled environment Status: Chronic (3) Alcohol withdrawal Status: Acute Condition Continue CIWA protocol Imodium for diarrhea Continue other medications Fall precautions NEDA WICK NP Sep 02, 2018 10:41
[2018-09-02] MEDS ORDERED: LOPERAMIDE HCL 2 MG CAP PO PRN (10:50)
[2018-09-02] MEDS ORDERED: LOPERAMIDE HCL 2 MG CAP PO ONE (10:50)
[2018-09-02] MEDS: COMBIVENT 4 GR INHALER IH SCH ×2 (12:00→17:21)
[2018-09-02] MEDS: NICOTINE INH SYSTEM 10 MG/INH INH PRN ×2 (16:15→20:59)
[2018-09-02 17:45] VITALS: BP 125/93
[2018-09-02] MEDS: traZODone HCL 50 MG TAB PO PRN (20:39)
[2018-09-02 20:55] VITALS: BP 147/72
[2018-09-03 06:04] VITALS: BP_SYST 62
[2018-09-03] MEDS: COMBIVENT 4 GR INHALER IH SCH ×3 (06:17→16:55)
[2018-09-03] MEDS: BACITRACIN OINT 15 GM TUBE TP SCH ×3 (08:16→21:00)
[2018-09-03] MEDS: THIAMINE HCL 100 MG TAB PO SCH (08:16)
[2018-09-03] MEDS: VENLAFAXINE XR 75 MG CAPCR PO SCH (08:16)
[2018-09-03] MEDS: predniSONE 20 MG TAB PO SCH (08:16)
[2018-09-03] MEDS: MULTIVITAMINS PO SCH (08:17)
[2018-09-03] MEDS: FOLIC ACID 1 MG TAB PO SCH (08:17)
[2018-09-03 08:20] VITALS: BP 115/97
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
[2018-09-03 12:21] VITALS: BP 122/95
[2018-09-03 17:52] VITALS: BP 132/100
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
[2018-09-03] MEDS: traZODone HCL 50 MG TAB PO PRN (20:40)
[2018-09-04 02:12] VITALS: BP 125/96
[2018-09-04] MEDS: COMBIVENT 4 GR INHALER IH SCH ×2 (06:14→11:48)
[2018-09-04 08:05] VITALS: BP 122/84
[2018-09-04] MEDS: VENLAFAXINE XR 75 MG CAPCR PO SCH (08:21)
[2018-09-04] MEDS: BACITRACIN OINT 15 GM TUBE TP SCH (08:21)
[2018-09-04] MEDS: THIAMINE HCL 100 MG TAB PO SCH (08:22)
[2018-09-04] MEDS: MULTIVITAMINS PO SCH (08:22)
[2018-09-04] MEDS: FOLIC ACID 1 MG TAB PO SCH (08:22)
--- NOTE | 2018-09-04 08:30 | BHS Progress Note ---
[facility] - Subjective Progress Notes Subjective Current medications: Effexor XR 75 mgs Trazodone up to 150 mgs at hs [facility] - Objective Physical Exam Vital Signs 98.0, 68, 16, 122/84, 91% on room air Muscle Strength and Tone: WNL Gait and Station: Unsteady [facility] Medications Reviewed: Side Effects, Benefits of Medication, Risks Allergies Reviewed: Yes Mental Status Exam General Appearance: Casual, Well Groomed, Good Eye Contact, Cooperative; No Unkept, No Psychomotor Agitation (consistent with alcohol withdrawal), No Other Speech: Clear, Spontaneous, Normal Rate, Normal Rhythm, Normal Volume, Normal Tone Mood: No Dysthmic/Depressed; Euthymic Affect: Full and Appropriate, Calm, Neutral Thought Process: Organized, Logical, Goal Directed Thought Content: No Suicidal Ideation, No Homicidal Ideation, No Delusions, No Auditory Halllucinations, No Visual Hallucinations, No Thought Broadcasting, No Ideas of Reference, No Obsessions Sensorium: Clear Cognition: Alert & Oriented-Person, Alert & Oriented-Place, Alert & Oriented- Time, Bzoji-Wpypwbax-Dyulwccru Memory: Immediate, Recent, Remote Intelligence: Average Insight Judgment: Poor Result Diagram: 09/04/18 0606 [facility] Assessment and Plan [id number] Encounter Date: Sep 04, 2018 [id number] Encounter Time: 08:30 [facility] Plan: Admit to Unit, Necessary Precautions, Admin/Titrate Meds, Educate Patient Tobacco Medications: Started Multpiple Antipsychotics Used: NOE Mcgraw DO Sep 04, 2018 08:30
[2018-09-04] MEDS ORDERED: predniSONE 20 MG TAB PO SCH (09:00)
[2018-09-04] MEDS ORDERED: VENLAFAXINE XR 75 MG CAPCR PO ONE (09:30)
[2018-09-04] MEDS ORDERED: IPRA4AER IH (11:33)
[2018-09-04] MEDS ORDERED: VENL150C61 PO (11:41)
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
[2018-09-04] MEDS ORDERED: BACOUD TP (12:24)
[2018-09-04] MEDS ORDERED: ALBU8.5H IH (12:26)
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
== END 2018-09-04 12:54 | disposition home or self-care (01) | DRG 897 ==
LOC: BHS 06:37
PROVIDERS: ADMIT Psychiatry & Neurology Psychiatry; ATTEND Psychiatry & Neurology Psychiatry
DX: F10.230 Alcohol dependence with withdrawal, uncomplicated (principal); F33.2 Major depressive disorder, recurrent severe without psychotic features; J44.1 Chronic obstructive pulmonary disease with (acute) exacerbation; F17.210 Nicotine dependence, cigarettes, uncomplicated; T21.01XA Burn of unspecified degree of chest wall, initial encounter; E87.6 Hypokalemia; Y90.8 Blood alcohol level of 240 mg/100 ml or more; Z73.3 Stress, not elsewhere classified; Z63.72 Alcoholism and drug addiction in family; Z59.1 Inadequate housing; Z88.6 Allergy status to analgesic agent
CPT/HCPCS: 36415; 71046; 82040; 82247; 82310; 82374; 82435; 82565; 82947; 84075; 84132; 84155; 84295; 84450; 84460; 84520; 94640; 94667; 94668; J3535; J7512

== ENCOUNTER 2018-09-10 08:47 | Emergency (ER) | payer SELFPAY ==
[2018-08-08 09:15] VITALS: Wt 49.9 kg
[~2018-09-10 08:47] MED LIST changes: +ALBU8.5H IH; +BACOUD TP; +IPRA4AER IH; +VENL150C61 PO
--- NOTE | 2018-09-10 08:51 | ER Report ---
History and Physical Time Seen By MD: 08:50 HPI/ROS CHIEF COMPLAINT: Midsternal chest pain, mild shortness breath since yesterday at 8 AM HISTORY OF PRESENT ILLNESS: Patient is a 58-year-old male with a history significant for smoking, chronic alcoholism here with persistent midsternal chest pain and tightness since yesterday morning at approximately 8:00. Symptoms have been persistent since time of onset and constant. Patient was found to be in atrial fibrillation with RVR at time of evaluation. Patient denies prior history of coronary artery disease, prior history of atrial fibrillation, atrial flutter. Patient does report drinking close to a pint of alcohol daily. Patient is tachycardic, with an irregularly irregular rhythm, blood pressure remains stable, REVIEW OF SYSTEMS: Constitutional: No fever, no chills. Eyes: No discharge. ENT: No sore throat. Cardiovascular: + Midsternal chest pain, + palpitations. Respiratory: No cough, no shortness of breath. Gastrointestinal: No abdominal pain, no vomiting. Genitourinary: No hematuria. Musculoskeletal: No back pain. Skin: No rashes. Neurological: No headache. Allergies: Coded Allergies: naproxen (Verified Allergy, Intermediate, HVES, 09/10/18) Home Meds Active Scripts Ipratropium/Albuterol Sulfate (COMBIVENT RESPIMAT INHAL SPRAY) 4 Gm Aer.w.adap, 1 INH IH TIDR, #1 INH Prov:SANDORJUANCARLOS M FURNACE ROOM SUPERVISOR 09/04/18 Reported Medications Albuterol Sulfate 90 Mcg/Act (PROAIR HFA 90 MCG/ACT) 8.5 Gm Hfa.aer.ad, 1-2 PUFF IH 3-4XD PRN for SHORTNESS OF BREATH, INHALER 09/04/18 Venlafaxine Hcl (EFFEXOR XR) 150 Mg Cap.er.24h, 150 MG PO QAM 09/04/18 Trazodone Hcl (TRAZODONE HCL) 150 Mg Tablet, 0.5-1 TAB PO QHS PRN for SLEEP 08/13/18 Discontinued Reported Medications Bacitracin (BACITRACIN ZINC) 0.9 Gm Oint, 0.9 GM TP BID APPLY TO AFFECTED AREA TWICE DAILY. 09/04/18 Hx Smoking: Yes Smoking Status: Heavy Tobacco Smoker Exposure to Second Hand Smoke?: Yes Hx Substance Use Disorder: Yes Hx Alcohol Use: Yes Constitutional Vital Sign - Last 24 Hours 09/10/18 09/10/18 08:53 08:53 Pulse 132 Resp 22 B/P (MAP) 128/97 Pulse Ox 89 O2 Delivery Room Air O2 Flow Rate 1.0 Physical Exam General Appearance: The patient is alert, has no immediate need for airway protection and no signs of toxicity. Uncomfortable appearing Eyes: Pupils equal and round no pallor or injection. ENT, Mouth: Mucous membranes are moist. Respiratory: There are no retractions, lungs are clear to auscultation. Cardiovascular: + Irregularly irregular rapid rate and rhythm Gastrointestinal: Abdomen is soft and non tender, no masses, bowel sounds normal. Neurological: No focal neurological deficits, tremulous likely secondary to alcohol withdrawal Skin: Warm and dry, no rashes. Musculoskeletal: Neck is supple non tender. Extremities are nontender, nonswollen and have full range of motion. DIFFERENTIAL DIAGNOSIS: After history and physical exam differential diagnosis was considered for chest pain including but not limited to myocardial ischemia, pericarditis pulmonary embolus, chest wall pain, pleural inflammation and pulmonary infectious causes. Medical Decision Making Data Points Result Diagram: 09/10/1890209/10/18 09 Laboratory Hematology Test 09/10/18 09:03 Red Blood Count 5.40 M/uL (4.00-5.60) Mean Corpuscular Volume 96.0 fL (80.0-96.0) Mean Corpuscular Hemoglobin 33.6 pg (26.0-33.0) Mean Corpuscular Hemoglobin Concent 35.0 g/dL (32.0-36.0) Red Cell Distribution Width 15.0 % (11.5-14.5) Mean Platelet Volume 8.0 fL (7.2-11.1) Neutrophils (%) (Auto) 70.0 % (39.4-72.5) Lymphocytes (%) (Auto) 11.4 % (17.6-49.6) Monocytes (%) (Auto) 18.2 % (4.1-12.4) Eosinophils (%) (Auto) 0.0 % (0.4-6.7) Basophils (%) (Auto) 0.4 % (0.3-1.4) Nucleated RBC Relative Count (auto) 0.0 /100WBC Neutrophils # (Auto) 7.4 K/uL (2.0-7.4) Lymphocytes # (Auto) 1.2 K/uL (1.3-3.6) Monocytes # (Auto) 1.9 K/uL (0.3-1.0) Eosinophils # (Auto) 0.0 K/uL (0.0-0.5) Basophils # (Auto) 0.0 K/uL (0.0-0.1) Nucleated RBC Absolute Count (auto) 0.00 K/uL Sodium Level 133 mmol/L (137-145) Potassium Level 3.5 mmol/L (3.5-5.0) Chloride Level 97 mmol/L (98-107) Carbon Dioxide Level 22 mmol/L (22-30) Blood Urea Nitrogen 9 mg/dl (9-21) Creatinine 0.70 mg/dl (0.66-1.25) Glomerular Filtration Rate Calc > 60.0 Random Glucose 149 mg/dl (75-110) Calcium Level 8.5 mg/dl (8.4-10.2) Total Bilirubin 0.5 mg/dl (0.2-1.3) Aspartate Amino Transf (AST/SGOT) 72 U/L (0-35) Alanine Aminotransferase (ALT/SGPT) 69 U/L (0-56) Alkaline Phosphatase 81 U/L (0-126) Troponin I < 0.012 ng/ml B-Type Natriuretic Peptide 71 pg/ml (0-100) Total Protein 7.3 g/dl (6.3-8.2) Albumin 4.2 g/dl (3.5-5.0) Chemistry Test 09/10/18 09:03 White Blood Count 10.6 k/uL (4.5-11.0) Red Blood Count 5.40 M/uL (4.00-5.60) Hemoglobin 18.1 g/dL (14.0-18.0) Hematocrit 51.9 % (42.0-52.0) Mean Corpuscular Volume 96.0 fL (80.0-96.0) Mean Corpuscular Hemoglobin 33.6 pg (26.0-33.0) Mean Corpuscular Hemoglobin Concent 35.0 g/dL (32.0-36.0) Red Cell Distribution Width 15.0 % (11.5-14.5) Platelet Count 206 K/uL (150-450) Mean Platelet Volume 8.0 fL (7.2-11.1) Neutrophils (%) (Auto) 70.0 % (39.4-72.5) Lymphocytes (%) (Auto) 11.4 % (17.6-49.6) Monocytes (%) (Auto) 18.2 % (4.1-12.4) Eosinophils (%) (Auto) 0.0 % (0.4-6.7) Basophils (%) (Auto) 0.4 % (0.3-1.4) Nucleated RBC Relative Count (auto) 0.0 /100WBC Neutrophils # (Auto) 7.4 K/uL (2.0-7.4) Lymphocytes # (Auto) 1.2 K/uL (1.3-3.6) Monocytes # (Auto) 1.9 K/uL (0.3-1.0) Eosinophils # (Auto) 0.0 K/uL (0.0-0.5) Basophils # (Auto) 0.0 K/uL (0.0-0.1) Nucleated RBC Absolute Count (auto) 0.00 K/uL Glomerular Filtration Rate Calc > 60.0 Calcium Level 8.5 mg/dl (8.4-10.2) Total Bilirubin 0.5 mg/dl (0.2-1.3) Aspartate Amino Transf (AST/SGOT) 72 U/L (0-35) Alanine Aminotransferase (ALT/SGPT) 69 U/L (0-56) Alkaline Phosphatase 81 U/L (0-126) Troponin I < 0.012 ng/ml B-Type Natriuretic Peptide 71 pg/ml (0-100) Total Protein 7.3 g/dl (6.3-8.2) Albumin 4.2 g/dl (3.5-5.0) EKG/Imaging EKG Interpretation PATIENT NAME: OSCAR MILIAN : [id number] MR: [id number] V: [id number] EXAM DATE: ORDERING PHYSICIAN: CRISS HAYES TECHNOLOGIST: Test Reason : chest pain Blood Pressure : / mmHG Vent. Rate : 152 BPM Atrial Rate : 156 BPM P-R Int : 000 ms QRS Dur : 074 ms QT Int : 296 ms P-R-T Axes : 000 081 078 degrees QTc Int : 470 ms Atrial fibrillation Nonspecific ST abnormality , probably digitalis effect Abnormal ECG When compared with ECG of 01-SEP-2018 00:19, Atrial fibrillation has replaced Sinus rhythm Vent. rate has increased BY 74 BPM Referred By: Confirmed By: Monitor Interpretation: Atrial Fibrillation Imaging PATIENT NAME: Oscar Milian : 1960 MR: [id number] V: [id number] EXAM DATE: ORDERING PHYSICIAN: CRISS HAYES TECHNOLOGIST: Location: [facility] - [place] Patient: Oscar Milian : 1960 Visit/Account:[id number] Date of Sevice: 09/10/2018 Technique: CHEST SINGLE AP HISTORY: Chest Pain COMPARISON: Chest radiograph September 01, 2018 Findings: No acute airspace consolidation. No pleural effusion. The cardiomediastinal mediastinal silhouette is unchanged. IMPRESSION: 1. No acute cardiopulmonary process. ED Course/Re-evaluation ED Course Patient is a 58-year-old male with a history significant for alcoholism, smoking, now with acute onset chest pain which started yesterday morning at 8:00 and has been persistent ever since. Patient was found to be in A. fib RVR with no prior history of arrhythmias. Troponin was found to be negative. Patient's oxygen saturation is remained around 90% during evaluation. Patient was given diltiazem boluses of 10 mg with temporary rate control. I further discussed these findings with the patient as well as the risk of not filling his medications including stroke, , disability, propagation of clots to the lung or brain. Patient voiced understanding. I did offer admission to the patient and he declined in spite of voicing understanding of the risks of not obtaining adequate treatment for his atrial fibrillation which is new. Patient was given diltiazem continuous release tablet 240 mg, Xarelto prior to discharge. I recommended that the patient follow up with a manager market research in order to obtain an echo and the patient voiced understanding. I offered to the patient to return to the hospital at any time for reevaluation and consideration for admission if indicated. Return precautions provided. Patient did receive GI cocktail, Zofran, fluids and had significant relief of symptoms prior to discharge. As previously mentioned, patient was offered admission however declined this option as he reports that he needs to work and is unable to stay at the hospital nor does he wish to. Patient voiced understanding of risks of not being treated for his current medical problems. Decision to Disposition Date: Sep 10, 2018 Decision to Disposition Time: 12:16 Depart Departure Latest Vital Signs Vital Signs Date Time Temp Pulse Resp B/P (MAP) Pulse Ox O2 Delivery O2 Flow Rate FiO2 09/10/18 08:53 132 22 128/97 89 Room Air 09/10/18 08:53 1.0 Impression: Primary Impression: Atrial fibrillation Condition: Condition Unchanged Disposition: HOME OR SELF-CARE New Scripts Diltiazem HCl (Diltiazem ER) 240 Mg Tab.er.24h 1 TAB PO QDAY for 30 Days, #30 TAB 3 Refills Prov: CRISS HAYES DO 09/10/18 Rivaroxaban 20 Mg (XARELTO 20 MG) 20 Mg Tablet 20 MG PO QDAY for 30 Days, #30 TAB 3 Refills Prov: CRISS HAYES DO 09/10/18 Patient Instructions: A-fib (Atrial Fibrillation) (ED), Diltiazem (By mouth), Rivaroxaban (By mouth) Additional Instructions: Please take 240 mg of diltiazem daily for treatment of your atrial fibrillation. Please take 20 mg of Xarelto at dinnertime for blood thinner in order to avoid stroke, clot in the lung. Please monitor your blood pressure in order to avoid dangerous low blood pressure. Please consider alcohol cessation as this may be precipitating your cardiac arrhythmias. Please follow-up with your family doctor in the next 24-48 hours. Please follow-up with cardiology in order to be evaluat ed for atrial fibrillation and obtain an echo of your heart. Please drink plenty of water. Please return immediately if you develop recurrent chest pains, shortness breath, fevers or chills, nausea or vomiting. It is important that you fill these medications in order to avoid propagating clots to the brain, lungs and other areas of the body. Please be aware that failure to take these medications may result in , severe injury, disability, coma. CRISS HAYES DO Sep 10, 2018 08:51
[2018-09-10] MEDS ORDERED: NS(*) 0.9% 1000 ML BAG 1,000 ML IV ONE (09:02)
[2018-09-10] MEDS ORDERED: LIDOCAINE 2% VISC SLN 15ML UDC PO ONE (09:05)
[2018-09-10] MEDS ORDERED: ASPIRIN 81 MG CHEW PO ONE (09:05)
[2018-09-10] MEDS ORDERED: MAG HYD/AL HYD/SIMETH 30ML UDC PO ONE (09:05)
[2018-09-10] MEDS ORDERED: ONDANSETRON 4 MG/2 ML VIAL IVP ONE (09:05)
--- NOTE | 2018-09-10 09:11 | EKG ---
FACILITY: [facility] PATIENT NAME: RACQUEL SMALLS : [id number] MR: [id number] V: [id number] EXAM DATE: ORDERING PHYSICIAN: CRISS HAYES TECHNOLOGIST: Test Reason : chest pain Blood Pressure : / mmHG Vent. Rate : 152 BPM Atrial Rate : 156 BPM P-R Int : 000 ms QRS Dur : 074 ms QT Int : 296 ms P-R-T Axes : 000 081 078 degrees QTc Int : 470 ms Atrial fibrillation Nonspecific ST abnormality Abnormal ECG When compared with ECG of 01-SEP-2018 00:19, Atrial fibrillation has replaced Sinus rhythm Vent. rate has increased BY 74 BPM Confirmed by JILL HUSAIN ([id number]) on 09/10/2018 12:33:44 PM Referred By: Confirmed By:JILL HUSAIN
[2018-09-10 09:13] LABS: PLATELET COUNT, AUTOMATED 206 K/uL (150-450)
[2018-09-10] MEDS ORDERED: DILTIAZEM 5 MG/ML 5ML IVPUSH IVP ONE ×2 (09:45→10:35)
--- NOTE | 2018-09-10 09:54 | RADIOLOGY IMAGING REPORT ---
FACILITY: [facility] - [place] PATIENT NAME: Oscar Milian : 1960 MR: [id number] V: [id number] EXAM DATE: ORDERING PHYSICIAN: CRISS HAYES TECHNOLOGIST: [place] [facility] [place] Oscar Milian : 1960 Visit/Account:[id number] Date of Sevice: 09/10/2018 Technique: CHEST SINGLE AP HISTORY: Chest Pain COMPARISON: Chest radiograph September 01, 2018 Findings: No acute airspace consolidation. No pleural effusion. The cardiomediastinal mediastinal haylee houette is unchanged. IMPRESSION: 1. No acute cardiopulmonary process. Report Dictated By: Yung Alexander DO at 09/10/2018 9:46 AM Report E-Signed By: Yung Alexander DO at 09/10/2018 9:50 AM WSN:[id number]
[2018-09-10 12:00] VITALS: BP 117/100
[2018-09-10] MEDS ORDERED: DILTIAZEM CD 120 MG CAPCR PO ONE (12:10)
[2018-09-10] MEDS ORDERED: RIVAROXABAN 10 MG TAB PO ONE (12:10)
[2018-09-10] MEDS ORDERED: DILT240T PO (12:31)
[2018-09-10] MEDS ORDERED: RIVA20TA PO (12:31)
--- NOTE | 2018-09-10 12:34 | EKG ---
FACILITY: [facility] - [place] PATIENT NAME: RACQUEL SMALLS : [id number] MR: [id number] V: [id number] EXAM DATE: ORDERING PHYSICIAN: CRISS HAYES TECHNOLOGIST: Test Reason : post diltiazam Blood Pressure : / mmHG Vent. Rate : 131 BPM Atrial Rate : 267 BPM P-R Int : 000 ms QRS Dur : 072 ms QT Int : 316 ms P-R-T Axes : 000 081 077 degrees QTc Int : 466 ms Atrial fibrillation Abnormal ECG When compared with ECG of 10-SEP-2018 09:04, No significant change was found Confirmed by JILL HUSAIN ([id number]) on 09/10/2018 12:39:42 PM Referred By: Confirmed By:JILL HUSAIN
== END 2018-09-10 12:40 | disposition home or self-care (01) ==
LOC: ER 09:09
DX: I48.0 Paroxysmal atrial fibrillation (principal); F17.210 Nicotine dependence, cigarettes, uncomplicated
CPT/HCPCS: 71045; 83880; 84484; 85025; 93005; 96361; 96374; 96375; 99284; J2405; J3490; J7030; 82040; 82247; 82310; 82374; 82435; 82565; 82947; 84075; 84132; 84155; 84295; 84450; 84460; 84520

== ENCOUNTER → 2018-09-27 | Outpatient (REF) ==
[2018-08-08 09:15] VITALS: BMI 17.4
[~2018-09-27] MED LIST changes: +DILT240T PO; +RIVA20TA PO
== END ==
LOC: US 09-15 14:11
PROVIDERS: ATTEND Internal Medicine
DX: I48.91 Unspecified atrial fibrillation (principal)
CPT/HCPCS: 93306

== ENCOUNTER → 2018-10-19 | Outpatient (REF) ==
[2018-08-08 09:15] VITALS: BMI 17.4
--- NOTE | 2018-10-20 19:56 | RADIOLOGY IMAGING REPORT ---
FACILITY: [facility] PATIENT NAME: Oscar Milina : 1960 MR: [id number] V: [id number] EXAM DATE: ORDERING PHYSICIAN: EDWARD GREENE TECHNOLOGIST: [place] [facility] [place]: Oscar Milian : 1960 Visit/Account:[id number] Date of Sevice: 10/20/2018 Limited abdominal ultrasound of the right upper quadrant Indication: Chronic hepatitis C Comparison: None available Findings Liver is normal in size, contour, and echotexture and measures 12.7 cm in length. There is normal hep atopedal portal venous flow. Gallbladder wall thickness is 1.8 mm with fixed subcentimeter polyp along the posterior gallbladder w all with maximum dimension of 2.5 mm within the gallbladder lumen. Negative sonographic Zamarripa's sign reported by the technologist. Common duct measures 3.0 mm in maximum diameter with no evidence of shadowing stone. Visualized pancreas is unremarkable Abdominal aorta and IVC are patent and unremarkable. The right kidney is normal in size, contour, and echotexture and measures 8.6 cm in length. IMPRESSION: 1. No acute intra-abdominal abnormality on this exam. 2. Small polyp within the gallbladder lumen. Report Dictated By: Lukas Elliott MD at 10/20/2018 7:51 PM Report E-Signed By: Lukas Elliott MD at 10/20/2018 7:53 PM WSN:[id number]
== END ==
LOC: US 13:30
PROVIDERS: ATTEND Nurse Practitioner
DX: B18.2 Chronic viral hepatitis C (principal)
CPT/HCPCS: 76705

== ENCOUNTER 2018-11-20 08:54 | Emergency (ER) | payer SELFPAY ==
[2018-08-08 09:15] VITALS: Wt 54.4 kg
[2018-11-20 08:59] VITALS: BP 146/113
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
--- NOTE | 2018-11-20 09:29 | EKG ---
FACILITY: [facility] - [place] PATIENT NAME: RACQUEL SMALLS : [id number] MR: [id number] V: [id number] EXAM DATE: ORDERING PHYSICIAN: KENYON CHU TECHNOLOGIST: TAYLOR Test Reason : Blood Pressure : / mmHG Vent. Rate : 070 BPM Atrial Rate : 070 BPM P-R Int : 120 ms QRS Dur : 076 ms QT Int : 406 ms P-R-T Axes : 074 086 079 degrees QTc Int : 438 ms Normal sinus rhythm Normal ECG When compared with ECG of 10-SEP-2018 11:32, Sinus rhythm has replaced Atrial fibrillation Vent. rate has decreased BY 61 BPM Confirmed by DALLIN RESTREPO ([id number]) on 11/20/2018 5:13:15 PM Referred By: KIMBERLEY Confirmed By:DALLIN RESTREPO
[2018-11-20] MEDS ORDERED: LOR5/325 PO (10:03)
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
--- NOTE | 2018-11-20 10:34 | RADIOLOGY IMAGING REPORT ---
FACILITY: [facility] [place] PATIENT NAME: Oscar Milian : 1960 MR: [id number] V: [id number] EXAM DATE: ORDERING PHYSICIAN: KENYON CHU TECHNOLOGIST: Location: [facility] [place] Patient: Oscar Milian : 1960 Visit/Account:[id number] Date of Sevice: 11/20/2018 Exam type: FOOT 3 VIEWS RIGHT History: Twisted ankle one week ago Comparison: Right foot series and right tibia and fibula performed today. Findings: There is an oblique fracture through the distal metaphysis of the right fibula with slight posterior and lateral displacement of distal fracture fragment. There is associated soft tissue swelling. IMPRESSION: 1. Oblique fracture to the distal metaphysis of the right fibula with slight posterior and lateral d isplacement of the distal fracture fragment Report Dictated By: Yessenia Gonzalez MD at 11/20/2018 10:21 AM Report E-Signed By: Yessenia Gonzalez MD at 11/20/2018 10:29 AM WSN:[email or web address]
== END 2018-11-20 10:52 | disposition home or self-care (01) ==
LOC: ER 09:02
DX: S82.431A Displaced oblique fracture of shaft of right fibula, initial encounter for closed fracture (principal); F10.220 Alcohol dependence with intoxication, uncomplicated
CPT/HCPCS: 93005; 99284

== ENCOUNTER 2018-11-27 09:10 | Emergency (ER) | payer SELFPAY ==
[2018-08-08 09:15] VITALS: Wt 63.5 kg
--- NOTE | 2018-11-27 09:25 | ER Report ---
History and Physical Time Seen By MD: 09:23 Hx. of Stated Complaint: STATES [facility] SENT HIM FOR DETOX. DRANK LAST AT 0300 TODAY. DRINKS EVERYDAY FOR "LOTS" OF YEARS HPI/ROS CHIEF COMPLAINT: Alcohol abuse HISTORY OF PRESENT ILLNESS: 58-year-old male frequent visitor to the emergency department for alcohol and alcohol-related complaints comes here today requesting detox. Patient states his last her history o'clock yesterday in the morning. Patient drinks daily smokes daily. Patient lives at is Her desire jobs spell today for his alcohol and smoking. Patient denies chest pain shortness of breath nausea vomiting [facility] and was told he may be going into DTs and doesn't come emergency room immediately. Patient says that he feels tremorous. Patient has no additional complaints at this time. Patient is requesting admission to detox REVIEW OF SYSTEMS: Respiratory: No cough, no dyspnea. Cardiovascular: No chest pain, no palpitations. Gastrointestinal: No vomiting, no abdominal pain. Musculoskeletal: No back pain. Remainder of the 14 system rev: Yes Allergies: Coded Allergies: naproxen (Verified Allergy, Intermediate, HVES, 11/27/18) Home Meds Active Scripts Hydrocodone Bit/Acetaminophen (HYDROCODON-ACETAMINOPHEN 5-325) 1 Each Tablet, 1 EACH PO Q4H for PAIN, #12 TAB 0 Refills Prov:KENYON CHU MD 11/20/18 Diltiazem HCl (Diltiazem ER) 240 Mg Tab.er.24h, 1 TAB PO QDAY for 30 Days, #30 TAB 3 Refills Prov:CRISS HAYES DO 09/10/18 Rivaroxaban 20 Mg (XARELTO 20 MG) 20 Mg Tablet, 20 MG PO QDAY for 30 Days, #30 TAB 3 Refills Prov:CRISS HAYES DO 09/10/18 Ipratropium/Albuterol Sulfate (COMBIVENT RESPIMAT INHAL SPRAY) 4 Gm Aer.w.adap, 1 INH IH TIDR, #1 INH Prov:JUANCARLOS PATTEN LEAD DATA ENTRY OPERATOR 09/04/18 Reported Medications Albuterol Sulfate 90 Mcg/Act (PROAIR HFA 90 MCG/ACT) 8.5 Gm Hfa.aer.ad, 1-2 PUFF IH 3-4XD PRN for SHORTNESS OF BREATH, INHALER 09/04/18 Venlafaxine Hcl (EFFEXOR XR) 150 Mg Cap.er.24h, 150 MG PO QAM 09/04/18 Trazodone Hcl (TRAZODONE HCL) 150 Mg Tablet, 0.5-1 TAB PO QHS PRN for SLEEP 08/13/18 Reviewed Nurses Notes: Yes Old Medical Records Reviewed: Yes Hx Smoking: Yes Smoking Status: Heavy Tobacco Smoker Exposure to Second Hand Smoke?: Yes Hx Substance Use Disorder: Yes (METH/COCAINE IN 1970S) Hx Alcohol Use: Yes (CURRENT) Constitutional Vital Sign - Last 24 Hours 11/27/18 11/27/18 09:17 09:30 Temp 98.7 Pulse 89 87 Resp 20 B/P (MAP) 157/100 Pulse Ox 92 89 O2 Delivery Room Air Physical Exam General Appearance: The patient is alert, has no immediate need for airway protection and no current signs of toxicity. No active tremors Eyes: Pupils equal and round no injection. Respiratory: Chest is non tender, lungs are clear to auscultation. Cardiac: regular rate and rhythm [ ] Gastrointestinal: Abdomen is soft and non tender, no masses, bowel sounds normal. Musculoskeletal: Neck: Neck is supple and non tender. Extremities have full range of motion and are non tender. Skin: No rashes or lesions. [ ] DIFFERENTIAL DIAGNOSIS: After history and physical exam differential diagnosis was considered for a call abuse alcohol intoxication Medical Decision Making Data Points Result Diagram: 11/27/1892111/27/18921 Laboratory Hematology Test 11/27/18 09:14 11/27/18 09:22 Urine Color Yellow Urine Clarity Clear Urine pH 6.0 pH (4.8-9.5) Urine Specific Duff 1.006 Urine Protein Negative mg/dL (NEGATIVE) Urine Glucose (UA) Negative mg/dL (NEGATIVE) Urine Ketones Trace mg/dL (NEGATIVE) Urine Blood Negative (NEGATIVE) Urine Nitrite Negative (NEGATIVE) Urine Bilirubin Negative (NEGATIVE) Urine Urobilinogen Negative mg/dL (0.2-1.9) Urine Leukocyte Esterase Negative (NEGATIVE) Urine RBC <1 /HPF (0-2/HPF) Urine WBC <1 /HPF (0-5/HPF) Urine Squamous Epithelial Cells None /LPF (</=FEW) Urine Bacteria Negative /HPF (NONE-FEW) Urine Mucus None /HPF (NONE-FEW) Urine Opiates Screen Negative Urine Barbiturates Screen Negative Ur Tricyclic Antidepressants Screen Negative Urine Phencyclidine Screen Negative Urine Amphetamines Screen Negative Urine Benzodiazepines Screen Negative Urine Cocaine Screen Negative Urine Cannabinoids Screen Positive Red Blood Count 4.89 M/uL (4.00-5.60) Mean Corpuscular Volume 97.8 fL (80.0-96.0) Mean Corpuscular Hemoglobin 33.7 pg (26.0-33.0) Mean Corpuscular Hemoglobin Concent 34.4 g/dL (32.0-36.0) Red Cell Distribution Width 14.1 % (11.5-14.5) Mean Platelet Volume 8.0 fL (7.2-11.1) Neutrophils (%) (Auto) 67.2 % (39.4-72.5) Lymphocytes (%) (Auto) 23.4 % (17.6-49.6) Monocytes (%) (Auto) 8.4 % (4.1-12.4) Eosinophils (%) (Auto) 0.1 % (0.4-6.7) Basophils (%) (Auto) 0.9 % (0.3-1.4) Nucleated RBC Relative Count (auto) 0.1 /100WBC Neutrophils # (Auto) 4.1 K/uL (2.0-7.4) Lymphocytes # (Auto) 1.4 K/uL (1.3-3.6) Monocytes # (Auto) 0.5 K/uL (0.3-1.0) Eosinophils # (Auto) 0.0 K/uL (0.0-0.5) Basophils # (Auto) 0.1 K/uL (0.0-0.1) Nucleated RBC Absolute Count (auto) 0.01 K/uL Sodium Level 140 mmol/L (137-145) Potassium Level 3.7 mmol/L (3.5-5.0) Chloride Level 104 mmol/L (98-107) Carbon Dioxide Level 22 mmol/L (22-30) Blood Urea Nitrogen 6 mg/dl (9-21) Creatinine 0.70 mg/dl (0.66-1.25) Glomerular Filtration Rate Calc > 60.0 Random Glucose 92 mg/dl (75-110) Calcium Level 8.8 mg/dl (8.4-10.2) Magnesium Level 1.4 mg/dl (1.7-2.2) Total Bilirubin 0.9 mg/dl (0.2-1.3) Aspartate Amino Transf (AST/SGOT) 35 U/L (0-35) Alanine Aminotransferase (ALT/SGPT) 39 U/L (0-56) Alkaline Phosphatase 103 U/L (0-126) Total Protein 7.5 g/dl (6.3-8.2) Albumin 4.2 g/dl (3.5-5.0) Salicylates Level < 10 mg/L Salicylate Last Dose Date unk Acetaminophen Level < 10 ug/ml Serum Alcohol 146 mg/dl Chemistry Test 11/27/18 09:14 11/27/18 09:22 Urine Color Yellow Urine Clarity Clear Urine pH 6.0 pH (4.8-9.5) Urine Specific Duff 1.006 Urine Protein Negative mg/dL (NEGATIVE) Urine Glucose (UA) Negative mg/dL (NEGATIVE) Urine Ketones Trace mg/dL (NEGATIVE) Urine Blood Negative (NEGATIVE) Urine Nitrite Negative (NEGATIVE) Urine Bilirubin Negative (NEGATIVE) Urine Urobilinogen Negative mg/dL (0.2-1.9) Urine Leukocyte Esterase Negative (NEGATIVE) Urine RBC <1 /HPF (0-2/HPF) Urine WBC <1 /HPF (0-5/HPF) Urine Squamous Epithelial Cells None /LPF (</=FEW) Urine Bacteria Negative /HPF (NONE-FEW) Urine Mucus None /HPF (NONE-FEW) Urine Opiates Screen Negative Urine Barbiturates Screen Negative Ur Tricyclic Antidepressants Screen Negative Urine Phencyclidine Screen Negative Urine Amphetamines Screen Negative Urine Benzodiazepines Screen Negative Urine Cocaine Screen Negative Urine Cannabinoids Screen Positive White Blood Count 6.2 k/uL (4.5-11.0) Red Blood Count 4.89 M/uL (4.00-5.60) Hemoglobin 16.5 g/dL (14.0-18.0) Hematocrit 47.9 % (42.0-52.0) Mean Corpuscular Volume 97.8 fL (80.0-96.0) Mean Corpuscular Hemoglobin 33.7 pg (26.0-33.0) Mean Corpuscular Hemoglobin Concent 34.4 g/dL (32.0-36.0) Red Cell Distribution Width 14.1 % (11.5-14.5) Platelet Count 228 K/uL (150-450) Mean Platelet Volume 8.0 fL (7.2-11.1) Neutrophils (%) (Auto) 67.2 % (39.4-72.5) Lymphocytes (%) (Auto) 23.4 % (17.6-49.6) Monocytes (%) (Auto) 8.4 % (4.1-12.4) Eosinophils (%) (Auto) 0.1 % (0.4-6.7) Basophils (%) (Auto) 0.9 % (0.3-1.4) Nucleated RBC Relative Count (auto) 0.1 /100WBC Neutrophils # (Auto) 4.1 K/uL (2.0-7.4) Lymphocytes # (Auto) 1.4 K/uL (1.3-3.6) Monocytes # (Auto) 0.5 K/uL (0.3-1.0) Eosinophils # (Auto) 0.0 K/uL (0.0-0.5) Basophils # (Auto) 0.1 K/uL (0.0-0.1) Nucleated RBC Absolute Count (auto) 0.01 K/uL Glomerular Filtration Rate Calc > 60.0 Calcium Level 8.8 mg/dl (8.4-10.2) Magnesium Level 1.4 mg/dl (1.7-2.2) Total Bilirubin 0.9 mg/dl (0.2-1.3) Aspartate Amino Transf (AST/SGOT) 35 U/L (0-35) Alanine Aminotransferase (ALT/SGPT) 39 U/L (0-56) Alkaline Phosphatase 103 U/L (0-126) Total Protein 7.5 g/dl (6.3-8.2) Albumin 4.2 g/dl (3.5-5.0) Salicylates Level < 10 mg/L Salicylate Last Dose Date unk Acetaminophen Level < 10 ug/ml Serum Alcohol 146 mg/dl Toxicology Test 11/27/18 09:14 11/27/18 09:22 Urine Opiates Screen Negative Urine Barbiturates Screen Negative Ur Tricyclic Antidepressants Screen Negative Urine Phencyclidine Screen Negative Urine Amphetamines Screen Negative Urine Benzodiazepines Screen Negative Urine Cocaine Screen Negative Urine Cannabinoids Screen Positive Salicylates Level < 10 mg/L Salicylate Last Dose Date unk Acetaminophen Level < 10 ug/ml Serum Alcohol 146 mg/dl Urinalysis Test 11/27/18 09:14 Urine Color Yellow Urine Clarity Clear Urine pH 6.0 pH (4.8-9.5) Urine Specific Duff 1.006 Urine Protein Negative mg/dL (NEGATIVE) Urine Glucose (UA) Negative mg/dL (NEGATIVE) Urine Ketones Trace mg/dL (NEGATIVE) Urine Blood Negative (NEGATIVE) Urine Nitrite Negative (NEGATIVE) Urine Bilirubin Negative (NEGATIVE) Urine Urobilinogen Negative mg/dL (0.2-1.9) Urine Leukocyte Esterase Negative (NEGATIVE) Urine RBC <1 /HPF (0-2/HPF) Urine WBC <1 /HPF (0-5/HPF) Urine Squamous Epithelial Cells None /LPF (</=FEW) Urine Bacteria Negative /HPF (NONE-FEW) Urine Mucus None /HPF (NONE-FEW) ED Course/Re-evaluation ED Course ED clinical course 58-year-old male long history of alcohol abuse returns emergency department asking for detox alkalosis in the 126 range patient showing early signs of DTs however milligram Ativan was administered a banana bag is resting comfortably at time of presentation except of a behavioral health for a voluntary admission Decision to Disposition Date: Nov 27, 2018 Decision to Disposition Time: 11:08 Depart Departure Latest Vital Signs Vital Signs Date Time Temp Pulse Resp B/P (MAP) Pulse Ox O2 Delivery O2 Flow Rate FiO2 11/27/18 09:30 87 89 11/27/18 09:17 98.7 20 157/100 Room Air Impression: Primary Impression: Alcohol intoxication in active alcoholic Condition: Improved Disposition: XFER TO [facility] Referrals: PATRICIA ROBBINS APRN (PCP) RAAD UMANZOR MD Nov 27, 2018 09:25
[2018-11-27 09:37] LABS: PLATELET COUNT, AUTOMATED 228 K/uL (150-450)
[2018-11-27] MEDS ORDERED: THIAMINE HCL(*) 200 MG/2 ML IN 100 MG, FOLIC ACID(*) 50 MG/10 ML INJ 1 MG, MULTIVITAMIN... IV ONE (09:50)
[2018-11-27 10:04] VITALS: BP 149/102
[2018-11-27] MEDS ORDERED: LORazepam 2 MG/ML VIAL IVP ONE (10:05)
== END 2018-11-27 11:23 ==
LOC: ER 09:37
DX: F10.229 Alcohol dependence with intoxication, unspecified (principal); Y90.6 Blood alcohol level of 120-199 mg/100 ml
CPT/HCPCS: 80305; 80320; 80329; 81001; 83735; 84443; 85025; 96365; 96375; 99284; J2060; J3411; J7030; 82040; 82247; 82310; 82374; 82435; 82565; 82947; 84075; 84132; 84155; 84295; 84450; 84460; 84520

== ENCOUNTER 2018-11-27 11:13 | Inpatient (IN) | payer SELFPAY ==
[2018-08-08 09:15] VITALS: Ht 167.6 cm; Wt 49.9 kg
[~2018-11-27] VITALS: Ht 167.6 cm; Wt 49.9 kg
[2018-11-27 11:28] VITALS: BP 142/92
[2018-11-27] MEDS ORDERED: MAG HYD/AL HYD/SIMETH 30ML UDC PO PRN (11:45)
[2018-11-27] MEDS: DIAZEPAM 10 MG TAB PO PRN ×4 (12:55→21:00)
[2018-11-27] MEDS ORDERED: ALBUTEROL 8 GM INHALER INH PRN (14:15)
[2018-11-27] MEDS ORDERED: NICOTINE CARTRIDGE 1 EA PO PRN (14:25)
[2018-11-27 16:16] VITALS: BP 144/95
[2018-11-27] MEDS: NICOTINE INH SYSTEM 10 MG/INH INH PRN (18:37)
[2018-11-27] MEDS: traZODone HCL 50 MG TAB PO SCH (21:00)
[2018-11-27 22:34] VITALS: BP 128/97
[2018-11-28] VITALS (7 sets, daily range): BP systolic 130–158; BP diastolic 98–107
[2018-11-28] MEDS: VENLAFAXINE XR 75 MG CAPCR PO SCH (08:10)
[2018-11-28] MEDS: THIAMINE HCL 100 MG TAB PO SCH (08:10)
[2018-11-28] MEDS: FOLIC ACID 1 MG TAB PO SCH (08:10)
[2018-11-28] MEDS: MULTIVITAMINS PO SCH (08:10)
[2018-11-28] MEDS ORDERED: LOPERAMIDE HCL 2 MG CAP PO PRN (12:10)
[2018-11-28] MEDS ORDERED: LOPERAMIDE HCL 2 MG CAP PO ONE (12:10)
--- NOTE | 2018-11-28 14:24 | SCHAAF H&P ---
DATE OF ADMISSION: November 27, 2018 ATTENDING PHYSICIAN Tarik Reese MD The patient was seen at approximately 0900 hours on the a.m. of November 28, 2018 for note concerning this dictation. PRESENTING PROBLEM, CHIEF COMPLAINT Alcohol intoxication. The patient presenting voluntarily for help with alcohol withdrawal with intention of going to rehab once complete. HISTORY OF PRESENT ILLNESS This is pleasant, well know 58-year-old male who was last on the unit in August,. This appears to be about the sixth admission overall to [facility] under similar circumstances. In addition to chronic alcoholism, this patient has long suffered from a chronic depressive condition listed currently as major depression, recurrent and severe without psychotic features. The patient is again admitted without incident. He was given Valium per [facility] protocol and during the time of initial interview, the patient somewhat clouded from this regimen. The patient was very cooperative, however, and denying any suicidal ideations currently, although this seems to may have been a problem a couple of weeks back during a crisis call. The patient admits to nursing staff that he is not taking medications currently as prescribed including Trazodone and Effexor, but does say that he feels they are helpful and wants to restart them. The patient reports he is living in what is believed to be some sort of mobile home device that is parked in his ex-'s yard. The patient is not working right now after notably recently working at [employer]. The patient denies any other significant stressors. MENTAL HEALTH HISTORY The patient has been a long-term outpatient patient in the past at [facility] for many years. It is unknown where he is following up for at this time. The patient has been treated for major depression and persisting depressive disorder type symptomatology for many years. Much of this time in the past, the patient has been on a relatively high-dose of Prozac, up to 80 or 100 mg at times in the past and the patient had been taking Trazodone with good luck with both in the past. The patient has a significant history of relapsing into alcohol use even while working. He is not believed to have a significant history involving suicide attempts and the patient denies. The patient has been in contact with AA in the past and at one point did have an AA sponsor. The patient right now is set up to go into treatment setting for alcohol use in [place] as soon as he gets clean and sober and this will be arranged. FAMILY PSYCHIATRIC HISTORY Unknown at the time of this dictation. PAST MEDICAL HISTORY The patient is thin body habitus, long-standing in nature, but overall thought to be in good health. There is some indication he may be evaluated for hepatitis C, although at this time I cannot find records supporting this. The patient is not currently on any medications. SOCIAL HISTORY The patient was born [place] and raised there. Currently living in [place]. He id . He has adult children. 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 He is not working currently, secondary to alcoholism. The patient has limited finances and patient is believed to have suffered some abuse while growing up. LEGAL HISTORY Thought to be unremarkable. SUBSTANCE ABUSE HISTORY Reports drinking hard liquor, sometimes vodka, whiskey or tequila heavily. Known to use nicotine and cannabis screen is generally positive at previous admissions as well as this one. PHYSICAL EXAMINATION Please see emergency room note. Notable for a 58-year-old male of thin body habitus. Vital signs at the time of admission: Temperature 98.7, pulse 89, respiratory rate 20, blood pressure 157/100 and pulse oximetry 92% on room air. LABORATORY DATA CBC notable for MCV and MCH at 97.8 and 33.7. CMP notable for magnesium slightly low at 1.4, total bilirubin 0.9 within normal limits. TSH 0.82. Urinalysis unremarkable and toxicology screen positive for cannabis, with a serum alcohol level of 146 upon admission. MENTAL STATUS EXAMINATION GENERAL APPEARANCE, BEHAVIOR AND ATTITUDE: This is polite 58-year-old male lying in bed, groomed relatively well. The patient making fair eye contact. No periods of tearfulness. The patient remembering this providers. SPEECH: Somewhat slow due to the affects of treatment for alcohol withdrawal. MOOD: Described as okay. AFFECT: Neutral and mood-congruent. THOUGHT PROCESSES: Appear goal-directed. The patient immediately bringing up the fact that he wants to enter treatment for alcoholism, logical. No loose associations or flight of ideas. THOUGHT CONTENT: Free of auditory or visual hallucinations, ideas of reference, thought broadcastings, delusions, obsessions or compulsions. Negative for any suicidal or homicidal ideations. SENSORIUM: Somewhat clouded, again due to active treatment for alcohol withdrawal. COGNITION: Alert and oriented to person, place, time and situation. MEMORY: Immediate, recent and remote estimated intact. INTELLIGENCE: Average, based on interview. INSIGHT AND JUDGMENT: Limited due to ongoing significant alcohol use disorder with multiple relapses. ASSESSMENT This is a fairly well known 58-year-old male who continues to [place] alcoholism. The patient returns to the emergency room on a voluntary basis to have withdrawal managed to where he can successfully enter treatment in [place] that is already set up through [facility]. Will continue to treat alcohol withdrawal to completion and hopefully enter treatment directly from unit upon discharge. Will treat alcohol withdrawal with diazepam per [facility] protocol. Will resume trazodone and Effexor while on the unit and will obtain collateral information as necessary. DIAGNOSES PER DSM-V 1. Alcohol intoxication. 2. Alcohol withdrawal. 3. Alcohol use disorder, severe. 4. Major depression, recurrent and severe without psychotic features. 5. Social stressors related to alcohol use disorder. PLAN 1. Will admit to the unit. 2. Necessary precautions will be implemented. 3. The patient will participate in individual and group therapy. 4. Medications will be titrated and adjusted accordingly. 5. Collateral information to be obtained as necessary. 6. Estimated length of stay 3 to 5 days. MTDD
[2018-11-28] MEDS: NICOTINE INH SYSTEM 10 MG/INH INH PRN (18:12)
[2018-11-28] MEDS: traZODone HCL 50 MG TAB PO SCH (21:26)
[2018-11-28] MEDS: DIAZEPAM 10 MG TAB PO PRN (21:58)
[2018-11-29 06:01] VITALS: BP 122/88
[2018-11-29] MEDS: VENLAFAXINE XR 75 MG CAPCR PO SCH (08:11)
[2018-11-29] MEDS: THIAMINE HCL 100 MG TAB PO SCH (08:11)
[2018-11-29] MEDS: MULTIVITAMINS PO SCH (08:11)
[2018-11-29] MEDS: FOLIC ACID 1 MG TAB PO SCH (08:11)
[2018-11-29 10:00] VITALS: BP 140/90
--- NOTE | 2018-11-29 13:20 | BHS Progress Note ---
[facility] - Subjective Progress Notes Subjective Patient improving, alcohol withdrawal nearing completion. Patient reports mood is okay today, sleep improved, no other concerns. Will plan on discharge tomorrow to residential rehab program in [place]. No other concerns, appetite good. Suicidal Ideation: None Homicidal Ideation: None [facility] - Objective Physical Exam Vital Signs Vital Signs Date Time Temp Pulse Resp B/P (MAP) Pulse Ox O2 Delivery O2 Flow Rate FiO2 11/29/18 10:00 97.8 80 18 140/90 (107) 90 Room Air 11/29/18 06:01 2.0 Muscle Strength and Tone: WNL Gait and Station: Steady [facility] Medications Reviewed: Side Effects, Benefits of Medication, Risks Mental Status Exam General Appearance: Casual, Well Groomed, Good Eye Contact, Cooperative, Heriberto te, Good Interaction; No Unkept, No Tearful, No Psychomotor Agitation; Psychomotor Retardation; No Bizarre Mannerisms, No Tics Speech: Clear, Spontaneous, Normal Rate, Normal Rhythm, Normal Volume, Normal Tone; No Rambling Mood: Euthymic Affect: Calm, Neutral; No Tearful, No Anxious, No Agitated Thought Process: Organized, Logical, Goal Directed; No Loose Associations, No Flight of Ideas Thought Content: No Suicidal Ideation, No Homicidal Ideation, No Delusions, No Auditory Halllucinations, No Visual Hallucinations, No Thought Broadcasting, No Ideas of Reference, No Obsessions, No Compulsions Sensorium: Clear Cognition: Alert & Oriented-Person, Alert & Oriented-Place, Alert & Oriented- Time, [id number]-[id number] Memory: Immediate, Recent, Remote Intelligence: Average Insight Judgment: Fair (in absence of alcohol) [facility] Assessment and Plan [id number] Encounter Date: Nov 29, 2018 [id number] Encounter Time: 09:30 [facility] Plan: Necessary Precautions, Individual/Group Therapy, Admin/Titrate Meds, Educate Patient Tobacco Medications: Started Multpiple Antipsychotics Used: No Problems: (1) Alcohol withdrawal Status: Acute (2) Alcohol use disorder, severe, in controlled environment Status: Chronic (3) Major depression, recurrent, chronic Status: Chronic Condition 1. will plan to go rehab [facility] in [place] tomorrow. 2. await PPD result 3. continue treatment. Problem Qualifiers (1) Alcohol withdrawal: Complication of substance-induced condition: uncomplicated Qualified Codes: F10.230 - Alcohol dependence with withdrawal, uncomplicated ROSIE GURROLA MD Nov 29, 2018 13:20
[2018-11-29 16:00] VITALS: BP 163/109
[2018-11-29] MEDS: NICOTINE INH SYSTEM 10 MG/INH INH PRN ×2 (18:25→20:45)
[2018-11-29] MEDS: DIAZEPAM 10 MG TAB PO PRN (18:43)
[2018-11-29 20:00] VITALS: BP 145/109
[2018-11-29] MEDS ORDERED: traZODone HCL 50 MG TAB PO SCH (21:00)
[2018-11-30 06:19] VITALS: BP 116/93
[2018-11-30 07:45] VITALS: BP 132/98
[2018-11-30] MEDS ORDERED: TRAZ300T17 PO (08:23)
[2018-11-30] MEDS ORDERED: NIC10R INH (08:24)
[2018-11-30] MEDS ORDERED: MULT-1379 PO (08:24)
[2018-11-30] MEDS ORDERED: NICOTROL CARTRIDGE PO (08:25)
[2018-11-30] MEDS ORDERED: TRAZ150T8 PO (08:30)
[2018-11-30] MEDS: FOLIC ACID 1 MG TAB PO SCH (08:37)
[2018-11-30] MEDS: THIAMINE HCL 100 MG TAB PO SCH (08:37)
[2018-11-30] MEDS: MULTIVITAMINS PO SCH (08:37)
[2018-11-30] MEDS: VENLAFAXINE XR 75 MG CAPCR PO SCH (08:37)
--- NOTE | 2018-12-01 19:55 | SCHAAF DISCHARGE ---
DATE OF ADMISSION: November 27, 2018 DATE OF DISCHARGE: November 30, 2018 ATTENDING PHYSICIAN Tarik Reese MD Patient was seen on the a.m. of 30 November 2018 at approximately 0900 hours for note concerning this dictation. FINAL DIAGNOSES 1. Alcohol use disorder, severe. 2. Alcohol withdrawal, considered complete. 3. Major depression, recurrent, moderate. 4. Social stressors related to alcoholism. 5. Recent history of distal fibula fracture. 6. Chronic obstructive pulmonary disease. 7. Hypertension. 8. History of atrial fibrillation. REASON FOR ADMISSION This is a well-known 58-year-old male who has a long-standing history of alcoholism. Patient returned for voluntary treatment on November 27, 2018, to the Emergency Room requesting admission to [facility] for detox. Patient had planned to go to rehab upon completion of detox. Patient interacting well. Alcohol withdrawal was treated to completion with Valium per [facility] protocol. Patient maintained his desire to enter [facility] program in [place] for residential treatment of alcoholism, and this was arranged. Patient continued to improve. No suicidal or homicidal ideation. Alcohol withdrawal considered complete. Patient discharged to the care of [facility] for travel to [place] rehab. PHYSICAL EXAMINATION Please see emergency room note. Notable for thin, 58-year-old male in no acute distress. At time of admission, vital signs showed temperature 98.7, pulse 89, respiratory rate 20, blood pressure 157/100, and pulse oximetry 92% on room air. At the time of discharge from [facility], vital signs showed temperature 98.1, pulse 90, respiratory rate 18, blood pressure 132/98, and pulse oximetry 90% on room air. LABORATORY DATA PPD was notably negative. Other laboratory data included CBC showing MCV and MCH elevated at 97.8 and 33.7 respectively. Chemistry panel notable for AST and ALT in normal range as well as total bilirubin in normal range. Magnesium slightly low at 1.4 upon admission. TSH was 0.82. Urinalysis unremarkable, and urine toxicology screen positive for cannabis with a serum alcohol level of 146 upon admission. MENTAL STATUS EXAMINATION AT TIME OF DISCHARGE GENERAL APPEARANCE, BEHAVIOR, AND ATTITUDE: Cooperative, pleasant, 58-year-old male, interacting well with this provider. No psychomotor agitation or retardation. No periods of tearfulness. Making good eye contact. SPEECH: Within normal limits. Regular rate, rhythm, volume, and tone. MOOD: Described as okay. AFFECT: Full at times and mood congruent overall. THOUGHT PROCESSES: Goal directed, logical. No loose associations or flight of ideas. THOUGHT CONTENT: Free of auditory or visual hallucinations, ideas of reference, thought broadcasting, delusions, obsessions, compulsions. Patient adamantly denying suicidal or homicidal ideation. SENSORIUM: Clear. COGNITION: Alert and oriented to person, place, time, and situation. MEMORY: Immediate, recent, and remote estimated intact. INTELLIGENCE: Average based on interview and previous knowledge of this patient. INSIGHT AND JUDGMENT: Considered grossly intact in the absence of alcohol or cannabis use to enter rehab. RESULTS OF TESTING Imaging: None. Laboratory data: See above. CONSULTATIONS None. TREATMENT Patient received medications, participated in individual and group therapy. HOSPITAL COURSE Patient was admitted for alcohol withdrawal. He was treated to completion, considered moderate in nature. Treated with diazepam per [facility] protocol. Patient very cooperative and polite throughout his stay. Appetite improved. Sleep improved. Alcohol withdrawal was considered complete. CONDITION OF PATIENT ON DISCHARGE Stable. Considered a minimal risk to himself or others and appropriate for ongoing care at [facility]. DISPOSITION Patient was discharged to the care of [facility] staff for transport to [facility] residential program for alcohol use disorder. Patient would follow up in [place] with history of fibula fracture, history of atrial fibrillation, potential COPD, and hypertension in two weeks. Patient would abstain from alcohol, nicotine, and marijuana. Crisis line was given should symptoms return. DISCHARGE MEDICATIONS Patient was discharged on: 1. Trazodone 150 mg, take one to two p.o. at bedtime. 2. Effexor XR 150 mg one p.o. q.a.m. 3. Multivitamin with minerals daily. PLAN Risks, benefits, and alternatives of above discharge plan were discussed. Informed consent was given to proceed with above discharge plan by this competent patient as well as [facility] staff present at time of discharge and accepting program in [place]. [place]
== END 2018-11-30 09:00 | DRG 897 ==
LOC: BHS 11:13
PROVIDERS: ADMIT Psychiatry & Neurology Psychiatry; ATTEND Psychiatry & Neurology Psychiatry
PROC: HZ2ZZZZ Detoxification Services for Substance Abuse Treatment (ICD-10-PCS; principal; 2018-11-27)
DX: F10.230 Alcohol dependence with withdrawal, uncomplicated (principal); F33.2 Major depressive disorder, recurrent severe without psychotic features; F10.229 Alcohol dependence with intoxication, unspecified; Z91.14 Patient's other noncompliance with medication regimen
CPT/HCPCS: 86580